=== PATIENT | female | born 1945 | race Caucasian/White ===

== ENCOUNTER → 2020-05-18 10:51 | Outpatient (BNVA) | payer MEDICARE, SELFPAY | PROVIDERS: PCP Internal Medicine; Referring Provider Internal Medicine; Visit Provider Nurse Practitioner Family | DX: I47.1 Supraventricular tachycardia (principal); I10 Essential (primary) hypertension; Z87.891 Personal history of nicotine dependence; Z91.09 Other allergy status, other than to drugs and biological substances; Z79.899 Other long term (current) drug therapy | CPT/HCPCS: 99212 ==

== ENCOUNTER → 2020-11-04 10:48 | Outpatient (BNVA) | payer MEDICARE, SELFPAY | PROVIDERS: PCP Internal Medicine; Visit Provider Nurse Practitioner Family | DX: I47.1 Supraventricular tachycardia (principal); I10 Essential (primary) hypertension; R94.31 Abnormal electrocardiogram [ECG] [EKG] | CPT/HCPCS: 93005; 99212 ==

== ENCOUNTER 2021-02-10 12:45 | Outpatient (REF) | payer MEDICARE, SELFPAY ==
--- NOTE | ~2021-02-10 | XR_ITS ---
EXAMINATION: KNEE X-RAY CLINICAL INFORMATION: Arthritis COMPARISON: Previous x-ray March 2015 TECHNIQUE: 4 views each knee FINDINGS: Left: Bone alignment is normal. No fracture or dislocation is seen. There is arthritis at the medial femoral tibial and patellofemoral joints with joint space narrowing and osteophyte formation. There is no joint effusion. Right: Bone alignment is normal. No fracture or dislocation is seen. There is arthritis at the medial femoral tibial patellofemoral joints with joint space narrowing and osteophyte formation. There is no joint effusion. XR/XR knee LT 4V IMPRESSION: Bilateral arthritis, right greater than left.
--- NOTE | ~2021-02-10 | XR_ITS ---
EXAMINATION: KNEE X-RAY CLINICAL INFORMATION: Arthritis COMPARISON: Previous x-ray March 2015 TECHNIQUE: 4 views each knee FINDINGS: Left: Bone alignment is normal. No fracture or dislocation is seen. There is arthritis at the medial femoral tibial and patellofemoral joints with joint space narrowing and osteophyte formation. There is no joint effusion. Right: Bone alignment is normal. No fracture or dislocation is seen. There is arthritis at the medial femoral tibial patellofemoral joints with joint space narrowing and osteophyte formation. There is no joint effusion. XR/XR knee RT 4V IMPRESSION: Bilateral arthritis, right greater than left.
[2021-02-10 13:38] LABS: Estimated Average Glucose 117 mg/dL; Hemoglobin A1C 149.8802 umol/L; Hemoglobin A1c % 5.7 %
[2021-02-10 14:28] LABS: Anion Gap 14 (12-20); Blood Urea Nitrogen 10 mg/dL (9-16); Calcium 9.4 mg/dL (8.4-10.2); Carbon Dioxide 28 mmol/L (22-29); Chloride 104 mmol/L (96-108); Cholesterol 149 mg/dL; Estimated Glomerular Filt Rate > 60; Glucose Random 120 mg/dL (60-115); HDL Cholesterol 47 mg/dL; LDL Cholesterol Calculated 75 mg/dl; Potassium 4.3 mmol/L (3.3-5.1); Sodium 142 mmol/L (135-145); Triglycerides 138 mg/dL
[2021-02-10 14:36] LABS: Creatinine Urine 229.23 mg/dL; Microalbum/Creatinine Ratio Ur 14.3 ug/mg cr
[2021-02-10 14:52] LABS: Vitamin D 25-OH Total 41.8 ng/mL (>30)
== END 2021-02-10 12:46 | disposition home or self-care (01) ==
LOC: HO.XRAY 12:45
PROVIDERS: PCP Internal Medicine; Visit Provider Internal Medicine
DX: M17.0 Bilateral primary osteoarthritis of knee (principal)
CPT/HCPCS: 36415; 73564; 80048; 80061; 82043; 82306; 83036

== ENCOUNTER 2021-12-26 09:15 | Outpatient (REF) | payer OTHER, SELFPAY ==
[2021-12-26 10:15] LABS: Estimated Average Glucose 111 mg/dL; Hemoglobin A1c % 5.5 %
[2021-12-26 10:49] LABS: Cholesterol 146 mg/dL; HDL Cholesterol 44 mg/dL; LDL Cholesterol Calculated 72 mg/dl; Triglycerides 153 mg/dL
== END 2021-12-26 09:16 | disposition home or self-care (01) ==
LOC: HO.LAB 09:15
PROVIDERS: PCP Internal Medicine; Visit Provider Nurse Practitioner Family
DX: E11.9 Type 2 diabetes mellitus without complications (principal); E78.49 Other hyperlipidemia
CPT/HCPCS: 36415; 80061; 83036

== ENCOUNTER 2022-03-30 13:35 | Outpatient (REF) | payer OTHER, SELFPAY ==
--- NOTE | ~2022-03-30 | MM_ITS ---
EXAMINATION: MM SCREENING DIGITAL BREAST TOMOSYNTHESIS, BILATERAL CLINICAL INFORMATION: Screening. Asymptomatic. The lifetime risk of breast cancer based on the Tyrer-Cuzick Model is 2%. COMPARISON: Mammography: 11/27/2018, 10/26/2017, 06/07/2016, 05/25/2016; targeted left breast ultrasound 05/18/2016. TECHNIQUE: Digital breast tomosynthesis is performed in both the craniocaudal and mediolateral oblique views along with computer-aided detection (CAD). Synthesized 2D images are generated from the tomosynthesis. FINDINGS: There are scattered areas of fibroglandular density (ACR BI-RADS breast composition Category b). There is chronic bilateral nipple retraction similar to prior studies. The parenchymal pattern is similar to prior exam. There is no interval significant mass or architectural abnormality or developing density. Small cyst again noted posterior outer left breast. There are scattered bilateral benign round and rim and some vascular calcifications. The axilla are unremarkable. MM/MM tomosynthesis screening BI IMPRESSION: No significant changes from prior exams. ASSESSMENT: BI-RADS 2: Benign RECOMMENDATION: Routine annual mammography screening. This patient's information was entered into a reminder system with a target due date for their next mammogram.
== END 2022-03-30 13:36 | disposition home or self-care (01) ==
LOC: HO.MAMMO 13:35
PROVIDERS: PCP Internal Medicine; Visit Provider Internal Medicine
DX: Z12.31 Encounter for screening mammogram for malignant neoplasm of breast (principal)
CPT/HCPCS: 77063; 77067

== ENCOUNTER 2022-08-23 09:50 | Outpatient (REF) | payer OTHER, SELFPAY ==
--- NOTE | ~2022-08-23 | XR_ITS ---
EXAMINATION: XR ANKLE, RIGHT XR FOOT, RIGHT CLINICAL INFORMATION: Swelling and pain. COMPARISON: None TECHNIQUE: AP, lateral, and mortise views of the right ankle. AP, lateral, and oblique views of the right foot. FINDINGS: Bony alignment and mineralization are normal. The ankle mortise is intact. No acute fracture, dislocation or right ankle joint effusion is seen. Boehler's angle is normal. There are moderate posterior and large plantar calcaneal spurs. There is degenerative change of the dorsal midfoot. There is a moderate bunion of the first metatarsal head. There is mild osteoarthritic change of the first metatarsophalangeal joint. No focal soft tissue swelling, gas or foreign body is seen. XR/XR ankle LT min 3V IMPRESSION: 1. No fracture, dislocation or right ankle joint effusion is seen. 2. There are calcaneal spurs, as detailed. 3. There is moderate bunion formation. 4. There is mild osteoarthritic change of the right first metatarsophalangeal joint. EXAMINATION: XR ANKLE, LEFT XR FOOT, LEFT CLINICAL INFORMATION: Only). COMPARISON: None TECHNIQUE: AP, lateral, and mortise views of the left ankle. AP, lateral, and oblique views of the left foot. FINDINGS: Bony alignment and mineralization are normal. The ankle mortise is intact. There are small, smoothly marginated accessory ossification centers or chronic avulsion fragments noted adjacent to the bilateral malleoli. No acute fracture, dislocation or joint effusion is seen. Boehler's angle is normal. There are small posterior and moderately large plantar calcaneal spurs. There are degenerative changes of the dorsal midfoot. There is a large bunion noted of the first metatarsal head. There is mild to moderate osteoarthritic change of the first metatarsophalangeal joint. No focal soft tissue swelling, gas or foreign body is seen. IMPRESSION: 1. No fracture, dislocation or left ankle joint effusion is seen. 2. There are calcaneal spurs, as detailed. 3. A large bunion is noted. 4. There is mild to moderate osteoarthritic change of the left first metatarsophalangeal joint.
== END 2022-08-23 09:51 | disposition home or self-care (01) ==
LOC: HO.XRAY 09:50
PROVIDERS: PCP Internal Medicine; Visit Provider Family Medicine
DX: M25.471 Effusion, right ankle (principal); M25.474 Effusion, right foot; M25.475 Effusion, left foot; M25.472 Effusion, left ankle; M25.571 Pain in right ankle and joints of right foot; M25.572 Pain in left ankle and joints of left foot
CPT/HCPCS: 73610; 73630

== ENCOUNTER 2023-03-15 12:25 | Outpatient (REF) | payer OTHER, SELFPAY ==
[2023-03-15 12:49] LABS: MANUAL DIFF FLAG NO
[2023-03-15 13:43] LABS: Basophils Percent Auto 0.3 % (0-2); Eosinophils Absolute Auto 0.2 X10*3/uL (0.0-0.4); Eosinophils Percent Auto 2.9 % (0-4); Hematocrit 41.8 % (37.0-47.0); Hemoglobin 14.4 g/dl (12.0-16.0); Imm Gran Abs Auto 0.01 X10*3/uL (0.00-0.03); Imm Gran Pct Auto 0.2 % (0.0-0.4); Lymphocytes Absolute Auto 2.3 X10*3/uL (1.2-4.9); Lymphocytes Percent Auto 39.4 % (20-40); Mean Corpuscular HGB Conc 34.4 g/dl (31.0-35.0); Mean Corpuscular Volume 92.9 fL (80.0-98.0); Mean Platelet Volume 11.6 fL (9.4-12.3); Monocytes Absolute Auto 0.5 X10*3/uL (0.1-1.2); Monocytes Percent Auto 8.5 % (2-11); Neutrophils Absolute Auto 2.8 x10*3/uL (2.0-8.3); Neutrophils Percent Auto 48.7 % (45-73); Platelet Count 226 X10*3/uL (160-400); Red Cell Distribution Width 12.4 % (11.0-16.0); White Blood Count 5.8 X10*3/uL (4.8-10.8)
[2023-03-15 14:19] LABS: Alanine Aminotransferase 16 U/L (0-31); Albumin Level 4.1 g/dL (3.5-5.0); Alkaline Phosphatase 105 U/L (39-117); Anion Gap 11 (12-20); Aspartate Amino Transferase 16 U/L (5-31); Bilirubin Direct 0.3 mg/dL (0.0-0.5); Bilirubin Total 0.9 mg/dL (0.0-1.0); Blood Urea Nitrogen 10 mg/dL (9-16); Calcium 9.2 mg/dL (8.4-10.2); Carbon Dioxide 28 mmol/L (22-29); Chloride 105 mmol/L (96-108); Cholesterol 150 mg/dL (<200); Estimated Glomerular Filt Rate > 60; Glucose Random 128 mg/dL (60-115); HDL Cholesterol 48 mg/dL (>40); LDL Cholesterol Calculated 74 mg/dL (<100); Potassium 4.1 mmol/L (3.3-5.1); Sodium 140 mmol/L (135-145); Total Protein 7.2 g/dL (6.5-8.0); Triglycerides 141 mg/dL (<150)
[2023-03-15 17:50] LABS: Creatinine Urine 92.78 mg/dL
== END 2023-03-15 12:26 | disposition home or self-care (01) ==
LOC: HO.LAB 12:25
PROVIDERS: PCP Internal Medicine; Visit Provider Internal Medicine
DX: Z00.00 Encounter for general adult medical examination without abnormal findings (principal); E78.5 Hyperlipidemia, unspecified; E11.9 Type 2 diabetes mellitus without complications; I10 Essential (primary) hypertension; M25.471 Effusion, right ankle
CPT/HCPCS: 36415; 80048; 80061; 80076; 82570; 85025

== ENCOUNTER 2023-06-11 13:39 | Emergency (ER) | payer OTHER, SELFPAY ==
--- NOTE | ~2023-06-11 | XR_ITS ---
EXAMINATION: XR CHEST CLINICAL INFORMATION: Cough, fever. COMPARISON: Chest radiograph 06/23/2019. TECHNIQUE: 2 views of the chest were obtained. FINDINGS: Unchanged cardiomediastinal silhouette. No focal airspace opacities, pleural effusion or pneumothorax. No acute osseous findings. Thoracic spondylosis. Visualized upper abdomen is within normal limits. XR/XR chest 2V IMPRESSION: No acute cardiopulmonary findings.
--- NOTE | 2023-06-11 13:41 | ED_ITS ---
HPI - URI/Sore Throat General Chief Complaint: Upper Respiratory Symptoms Stated Complaint: R ear pain/cough Time Seen by Provider: 06/11/23 15:16 Source: patient Mode of arrival: ambulatory Limitations: no limitations History of Present Illness HPI Narrative: 77-year-old female history of SVT, hypertension presenting with sinus congestion, frontal headache, fatigue, malaise, dry cough all going on for the past 2 weeks not improving. Has been taking [id number] medications with little to no relief. Patient denies chest pain, shortness of breath, fevers, chills, nausea, vomiting, abdominal pain, vision changes, weakness. No sick contacts Related Data Home Medications Medication Instructions Recorded Confirmed atorvastatin 40 mg tablet 40 mg PO BEDTIME 05/18/20 11/04/20 cholecalciferol (vitamin D3) 50 50 mcg PO DAILY 05/18/20 11/04/20 mcg (2,000 unit) capsule fluticasone propionate 50 intranasal 05/18/20 11/04/20 mcg/actuation nasal spray,suspension lisinopril 5 mg tablet 5 mg PO DAILY 05/18/20 11/04/20 lorazepam 0.5 mg tablet 0.8385i06? mg PO BEDTIME PRN 05/18/20 11/04/20 omeprazole 20 mg capsule,delayed 20 mg PO DAILY 05/18/20 11/04/20 release Previous Rx's Medication Instructions Recorded amoxicillin 875 mg-potassium 1 tab PO BID 10 days #20 tabs 06/11/23 clavulanate 125 mg tablet prednisone 20 mg tablet 40 mg (2 x 20 mg) PO DAILY 5 days 06/11/23 #10 tabs Allergies Allergy/AdvReac Type Severity Reaction Status Date / Time ENVIROMENTAL Allergy Unknown RHINITIS Uncoded 04/01/20 17:50 environmental Allergy Unknown Uncoded 03/16/15 00:00 Review of Systems Review of Systems: Constitutional : No Weight loss, No Fever, No Chills, + Fatigue, + Malaise ENT/Mouth : + sore throat, No Rhinorrhea, + congestion Eyes: No Eye Pain, No Swelling, No Redness Cardiovascular : No Chest Pain, No SOB, No Dyspnea on Exertion, No Orthopnea, No Edema, No Palpitations Respiratory : + Cough, No Sputum, No Wheezing Gastrointestinal : No Nausea, No Vomiting, No Diarrhea, No Constipation, No abdominal Pain, No Hematochezia, No Melena Genitourinary : No Dysuria, No Urinary Frequency, No Hematuria, Musculoskeletal : No joint pain, No Myalgias, No Joint Swelling Skin : No Skin Lesions, No rash Neuro : No Weakness, No Numbness, No Dizziness, No Headache Psych : No Anxiety/Panic, No Depression All other systems reviewed and are negative Yes all other systems are reviewed and are negative [facility] Past Medical History Attestation statement: The following information was validated with the patient. Source: old records reviewed and nursing notes reviewed Medical History HTN (hypertension) SVT (supraventricular tachycardia) Surgical History H/O prior ablation treatment (~01/2020) History of hysterectomy Hx of tubal ligation Family History Family History Father No problems noted. Mother No problems noted. Physical Exam Vital Signs: Vital Signs: Last Vital Signs Temp 98.6 F 06/11/23 13:43 Pulse 74 06/11/23 13:43 Resp 20 06/11/23 13:43 BP 184/76 H 06/11/23 13:43 Pulse Ox 96 06/11/23 13:43 O2 Del Method Room Air 06/11/23 13:43 BMI result Body Mass Index 31.4 vss Appearance: Alert.? Oriented X3.? No acute distress.? Head: Normocephalic, atraumatic, no step-offs or deformities discomfort with palpation of facial sinuses and pressure to face with forward bending Eyes: Pupils equal, round and reactive to light.? ENT: Pharynx normal.? Neck: Normal inspection.? Neck supple.? CVS: Normal heart rate and rhythm.? Pulses normal.? Respiratory: No respiratory distress.? Breath sounds normal.? Abdomen: Soft and nontender.? Skin: Skin warm and dry.? Normal skin color.? Normal skin turgor.? Extremities: No lower extremity edema.? No calf ttp. 5/5 strength to bilateral upper and lower extremities Neuro: Oriented X 3.? No motor deficit.? No sensory deficit. CN 2-12 intact Course Course Course Narrative: This is a rapid medical exam. Deferred additional HPI, ROS, PE to primary provider 77 yo female with history of asthma, DM, HTN here with fever, cough, right ear pain since last evening. will obtain rsv/flu/covid, strep vss Reevaluation(s) Reevaluation #1: Flu/COVID/RSV and strep negative. Chest x-ray pending. Time: 15:55 Reevaluation #2: Will discharge patient home on Augmentin, prednisone. Educated patient on diagnosis and treatment plan, answered all question, patient verbalizes understanding. At this time patient will be discharged home, advised to return with new or worsening symptoms. Educated on worrisome signs and symptoms and when to return. At this time I feel comfortable discharge home., Medical Decision Making Medical Decision Making [facility] Narrative: [id number] 77-year-old female presents for evaluation of congestion, frontal headache, sinus like symptoms for the past 2 weeks not improving. History of sinus infections Physical exam with pressure to face with forward bending and discomfort with palpation of facial sinuses. Neurological assessment nonfocal. NIH stroke scale 0. This is likely sinusitis versus viral illness. Unlikely meningitis, encephalitis, intracranial hemorrhage, stroke, aseptic meningitis. NO signs pna/pe Plan viral test Differential Diagnosis Differential Diagnoses: The differential diagnosis associated with the presentation includes This is likely sinusitis versus viral illness. Unlikely meningitis, encephalitis, intracranial hemorrhage, stroke, aseptic meningitis.NO signs pna/pe Admission/Observation Consideration of admission/observation: Escalation of care including admission/observation considered unlikely Lab Data [facility] Lab Attestation statement: I reviewed the patient's lab results. Labs: Lab Results 06/11/23 Range/Units 14:10 Influenza Type A (PCR) NEGATIVE (Negative) Influenza Type B (PCR) NEGATIVE (Negative) RSV RNA Qual (PCR) NEGATIVE (Negative) SARS-CoV-2 RNA (RT-PCR) NEGATIVE (Negative) S. pyogenes GrpA DILLON Negative (Negative) Chronic Conditions Patient?s care impacted by: Hypertension Critical Care Time Critical Care Time Critical Care Time: No Discharge Plan Discharge Clinical Impression: Sinusitis Patient Disposition: Home, Self-Care Instructions: Sinusitis (ED) Additional Instructions: Take your medications as prescribed. If you were prescribed antibiotics today, it is important that you take your medication to their entirety, do not skip any doses, do not finish them early. Follow-up with your primary care provider this week. Return to the emergency department with new or worsening symptoms. Such as fevers, chills, chest pain, shortness of breath, nausea, vomiting, dizziness, headache, vision changes, lethargy In case of emergency call 911 Prescriptions: New amoxicillin-pot clavulanate 875-125 mg tablet 1 tab PO BID 10 Days Qty: 20 0RF prednisone 20 mg tablet 40 mg PO DAILY 5 Days Qty: 10 0RF No Action atorvastatin 40 mg tablet 40 mg PO BEDTIME lisinopril 5 mg tablet 5 mg PO DAILY omeprazole 20 mg capsule,delayed release(DR/EC) 20 mg PO DAILY fluticasone propionate 50 mcg/actuation spray,suspension intranasal lorazepam 0.5 mg tablet 0.5735w89? mg PO BEDTIME PRN cholecalciferol (vitamin D3) 50 mcg (2,000 unit) capsule 50 mcg PO DAILY Referrals: Ronda Marquez MD [Primary Care Provider] - 2 days
[2023-06-11 13:43] VITALS: BP 184/76; PULSE 74; RESP 20; TEMP 37; O2SAT 96; BMI 31.4
[2023-06-11 14:30] LABS: IDNOW Serial# 58CA691E; Strep A Nucleic Acid Negative (Negative)
[2023-06-11 14:57] LABS: Influenza A PCR NEGATIVE (Negative); Influenza B PCR NEGATIVE (Negative); Resp Syncy Virus RNA Qual PCR NEGATIVE (Negative); SARS COV2 PCR INHOUSE NEGATIVE (Negative)
[2023-06-11 16:16] VITALS: BP 168/76; PULSE 72; RESP 20; TEMP 36.9; O2SAT 98
--- OUTSIDE RECORDS SUMMARY | 2023-06-11 16:54 | XMS_ITS | Patient Health Record ---
Author Name Unknown [facility] Address [address] [place] [address] Care Team Providers Care Software Installer Name Role Phone Ronda Marquez Primary Care Provider Roya marinoilaAddison Paz Unavailable [phone] ALLERGIES Allergen (clinical drug ingredient) Drug/Non Drug Allergy documented on EMR Reaction Allergy Type Onset Date Status ibuprofen Advil Unknown Drug Allergy Active aspirin Aspirin Unknown Drug Allergy Active REASON FOR REFERRAL No Information MEDICATIONS Medication SIG (Take, Route, Frequency, Duration) Notes Start Date End Date Status amLODIPine Besylate 10 MG Oral for 30 Days Active Lisinopril 20 MG TAKE 1 TABLET BY ZEE TH EVERY MORNING Oral for 90 Days Active Omeprazole 20 MG Oral for 90 Days Active Custom Orthotics as directed 05/01/2023 Active Montelukast Sodium 10 MG Oral for 90 Days Active Cetirizine HCl 04/11/2023 Acti ve Celecoxib 200 MG TAKE 1 CAPSULE BY MO UTH DAILY IN THE MORNING Oral for 30 Days Active Atorvastatin Calcium 40 MG Oral for 90 Days Active SOCIAL HISTORY Tobacco Use: Social History Observation Description Date Details (start date - stop date) Former Smoker NA - NA Sex Assigned At : Social History Observation Description Sex Assigned At Unknown Tobacco Use/Smoking Question Answer Notes Are you a: former smoker Additional Findings: Tobacco Non-User Current no n-smoker Alcohol Screen Question Answer Notes Did you have a drink containing alcohol in the p ast year? Yes Points 0 Interpretation Negative Tobacco use other than smoking: Question Answer Notes Are you an other tobacco user? No VITAL SIGNS Height 5 ft 1 in in 06/01/2023 Weight 176 lbs 06/01/2023 BMI 33.25 kg/m2 06/01/2023 Encounters Encounter Location Date Provider Diagnosis [address] [id number] 04/11/2023 Addison Sherley [address] [address] 04/13/2023 Addison Sherley [address] [address] 05/01/2023 Addison Sherley Pain in left foot M79.672 ; Hypertrophy of bone, left ankle and foot M89.372 ; Flat foot [pes planus] (acquired), left foot M21.42 ; Posterior tibial tendinitis of left lower extremity M76.822 and Acquired pes planus of right foot M21.[address] [address] 05/01/2023 Addison Sherley [address] [address] 06/01/2023 Addison Lepe Posterior tibial tendinitis of left lower extremity M76.822 ASSESSMENTS Encounter Date Diagnosis Assessment Notes Treatment Notes Treatment Clinical Notes 05/01/2023 Pain in left foot (ICD-10 - M79.672) 05/01/2023 Hypertrophy of bone, left ankle and foot (ICD-10 - M89.372) 06/01/2023 Posterior tibial tendinitis of left lower extremity (ICD-10 - M76.822) 05/01/2023 Flat foot [pes planus] (acquired), left foot (ICD-10 - M21.42) 05/01/2023 Posterior tibial tendinitis of left lower extremity (ICD-10 - M76.822) 05/01/2023 Acquired pes planus of right foot (ICD-10 - M21.41) PLAN OF TREATMENT Pending Test Test Name Order Date X ray : Foot, left 3V 05/01/2023 Next Appt Details Provider Name:Addison Lepe , 08/07/2023 10:30:00 AM, [address] [place] [address], [id number], Insurance Providers Payer Name Payer Address Payer Phone Subscriber Number Group Number Insured Name Patient Relationship to Insured Coverage Start Date Coverage End Date [facility] [employer] Claims [address] [place] [address] [phone] [id number] Sandra Manning Self - patient is the insured MEDICAL (GENERAL) HISTORY Medical History History ICD Code CAD Reflux Heart disease/HTN Surgical History Surgery Date(Month/Year) mattress surgery 1993 ovaries surgery 1993
== END 2023-06-11 17:01 | disposition home or self-care (01) ==
PROVIDERS: Nurse Practitioner Family; Emergency Provider Emergency Medicine; PCP Internal Medicine
DX: J32.9 Chronic sinusitis, unspecified (principal); Z20.828 Contact with and (suspected) exposure to other viral communicable diseases; Z20.822 Contact with and (suspected) exposure to COVID-19; E11.9 Type 2 diabetes mellitus without complications; I10 Essential (primary) hypertension; Z79.02 Long term (current) use of antithrombotics/antiplatelets; Z79.899 Other long term (current) drug therapy
CPT/HCPCS: 0241U; 71046; 87651; 99282; 99283

== ENCOUNTER 2024-03-05 14:05 | Outpatient (REF) | payer OTHER, SELFPAY | END 2024-03-05 14:06 | disposition home or self-care (01) | LOC: HO.LNP 14:05 | PROVIDERS: PCP Internal Medicine; Visit Provider Nurse Practitioner Family | DX: M25.551 Pain in right hip (principal); N39.0 Urinary tract infection, site not specified; R31.29 Other microscopic hematuria; R30.0 Dysuria; R82.90 Unspecified abnormal findings in urine; R35.0 Frequency of micturition | CPT/HCPCS: 51798; 81003; 87086; 87088; 87186; 99202 ==

== ENCOUNTER 2024-03-05 14:05 | Outpatient (AMB) | payer OTHER, SELFPAY ==
--- NOTE | 2024-03-05 14:16 | MHC.OFFVIS ---
Intake Visit Reasons: urinary incontinence Intake Note: New Patient presents for initial visit for urinary incontinence Urology Medications: none Blood Thinner: none PVR: 64ml's Typesetting Machine Tender Required: Yes Accompanied by: Self / Same As Patient Allergies ENVIROMENTAL Allergy (Unknown, Uncoded 03/05/24 14:56) RHINITIS environmental Allergy (Unknown, Uncoded 03/05/24 14:56) Unknown Medication List - Last Reconciled 03/05/24 by RAN Kemp No Known Home Meds HPI Comments Details: Evelyn is a very pleasant 78-year-old Italian-speaking female patient of Dr. Radha Vallejo. She has a past medical history of SVT and hypertension. She presents to the office today as a new patient for ongoing lower urinary tract symptoms. In discussion with the patient today she reports a longstanding history of bladder issues and has previously had bladder surgery at [facility] however is unsure as to exactly what procedure she had as this was 6 years ago. She reports noting issues with urinary frequency, foul-smelling urine, dysuria, and urinary urgency. In office urinalysis results reviewed with the patient today 1+ leukocytes, positive nitrate, 2+ microscopic hematuria. When asked she denies any previous history of smoking and or known workplace chemical exposure. Discussed attempting to obtain previous urology records for continuity of care. Discussed at length potential causes for lower urinary tract symptoms patient is experiencing. She otherwise denies flank pain, fever, and or chills. Discussed obtaining retroperitoneal ultrasound for further assessment evaluation. PVR 64 mL. She otherwise offers no other issues or concerns at this time. [facility] Medical History SVT (supraventricular tachycardia) HTN (hypertension) Surgical History H/O prior ablation treatment (~01/2020) History of hysterectomy Hx of tubal ligation Family History Father No problems noted. Mother No problems noted. Review of Systems Const All systems reviewed & are unremarkable except as noted in HPI and below Physical Exam Const General: cooperative, healthy appearing, comfortable, no acute distress, well developed, alert and awake Orientation/consciousness: patient oriented x3 Limitations: no limitations HEENT Head: Yes normal to inspection, Yes normocephalic and Yes atraumatic Ears: hearing grossly normal bilaterally Eyes General: appearance normal, both eyes and all related structures Neck Neck: Yes normal visual inspection and Yes trachea midline Chest Chest palpation & inspection: normal inspection of the chest Resp Effort & Inspection: normal respiratory effort and able to speak in complete sentences Cardio Rate: regular rate GI Inspection: Yes normal to inspection General: Yes no CVA tenderness Back/Spine/Pelvis Back: no CVA tenderness Skin General skin exam: no rashes or lesions noted Neuro General: patient oriented x3 Extrem General: Yes normal to inspection Psych Appearance: grossly normal and well kempt Mental Status: mental status grossly normal Speech and movement: Normal speech and movement present and Clear speech present Affect: normal affect Attitude: cooperative Thought process: Normal thought process present Thought content: Normal thought content present Insight: Fair insight present (Psych) Judgement: Fair judgement present (Psych) Office Procedures Post Void Residual Post Residual Void Post Void Residual (PVR): 64 [id number] Void Residual by ultrasound Results AMB Urinalysis, Automated UA Leukoctes 15 Galina/uL Last Edit by SynapticMash on 03/05/24 14:33 UA Nitrite Positive Last Edit by SynapticMash on 03/05/24 14:33 UA Urobilinogen 0.2 mg/dL Last Edit by SynapticMash on 03/05/24 14:33 UA Protein 15 mg/dL Last Edit by SynapticMash on 03/05/24 14:33 UA pH 6.0 Last Edit by SynapticMash on 03/05/24 14:33 UA Blood 80 Darron/uL Last Edit by SynapticMash on 03/05/24 14:33 UA Specific Crockett 1.010 Last Edit by SynapticMash on 03/05/24 14:33 UA Ketone Negative Last Edit by SynapticMash on 03/05/24 14:33 UA Bilirubin 0 mg/dL Last Edit by SynapticMash on 03/05/24 14:33 UA Glucose 0 mg/dL Last Edit by SynapticMash on 03/05/24 14:33 Results Reviewed Results Reviewed: Laboratory Last Values Urine pH (Auto) 6.0 03/05/24 14:23 Specific Crockett (Auto) 1.010 03/05/24 14:23 Urine Protein (Auto) 15 mg/dL 03/05/24 14:23 Glucose (UA)(Auto) 0 mg/dL 03/05/24 14:23 Urine Ketones (Auto) Negative 03/05/24 14:23 Urine Blood (Auto) 80 Darron/uL 03/05/24 14:23 Urine Nitrite (Auto) Positive 03/05/24 14:23 Urine Bilirubin (Auto) 0 mg/dL 03/05/24 14:23 Urine Urobilinogen (Auto) 0.2 mg/dL 03/05/24 14:23 Leukocyte Esterase (Auto) 15 Galina/uL 03/05/24 14:23 Assessment & Plan Assessment & Plan (1) Urinary tract infection: Code(s): N39.0 - Urinary tract infection, site not specified Category: Medical (2) Microscopic hematuria: Code(s): R31.29 - Other microscopic hematuria Category: Medical (3) Dysuria: Code(s): R30.0 - Dysuria Category: Medical (4) Foul smelling urine: Code(s): R82.90 - Unspecified abnormal findings in urine Category: Medical (5) Urinary frequency: Code(s): R35.0 - Frequency of micturition Category: Medical Plan In office urinalysis results reviewed with the patient today; as noted above; will send for urine culture. PVR 64 mL Discussed at length potential causes for lower urinary tract symptoms patient was experiencing. Discussed obtaining retroperitoneal ultrasound for further assessment evaluation. Start Macrobid as discussed and prescribed. Will attempt to obtain previous medical records for continuity of care. Discussed possible near future in office cystoscopy and or urodynamics for further assessment evaluation Discussed bladder triggers/irritants. Discussed UTI prevention with D mannose supplement, vitamin-C, increasing fluid intake, behavioral therapy with timed voiding, perineal hygiene and postcoital voiding, and management of constipation with stool softeners and increased fiber intake. Discussed possible near future microgen. Follow-up in 1-3 months with imaging to be completed prior and PVR at next office visit; or sooner with any issues, concerns, and or questions. Orders: Orders AMB Urinalysis Automated Today Z13.9 - Encounter for screening, unspecified Urine Culture Today Z13.9 - Encounter for screening, unspecified US retroperitoneal comp Today N39.0 - Urinary tract infection, site not specified, R30.0 - Dysuria, R31.29 - Other microscopic hematuria, R35.0 - Frequency of micturition, R82.90 - Unspecified abnormal findings in urine AMB Post Void Residual by ultrasound Today Z13.9 - Encounter for screening, unspecified Medications: New nitrofurantoin macrocrystal must administer with a meal/food 100 mg PO BID 20 caps 0RF 10 days N39.0 - Urinary tract infection, site not specified Patient Instructions: The patient had an opportunity to ask questions regarding the treatment plan. All questions were answered. Physical exam, labs, and imaging were discussed and reviewed in detail. As well as risks, benefits, and discussion of treatment choices. No major barriers to understanding were identified. The patient expressed understanding and agreement with the above treatment plan. The patient was made aware they should contact our office by phone for worsening of their current condition, the appearance of new symptoms, or with any questions or concerns. Compliance is encouraged with any medications and follow up testing that is ordered. It is a privilege to be allowed the opportunity to participate in? your urological care.? Again, if you have any questions or concerns If you have any questions or concerns please do not hesitate to contact me. The office is [phone]. This note is constructed using voice recognition software. While every effort has been made to ensure accuracy box nailer errors may have been included. Yours sincerely, RAN Kemp Coding Level of Care Code New Pt Level 4 (83913) Diagnoses Urinary tract infection N39.0 Microscopic hematuria R31.29 Dysuria R30.0 Foul smelling urine R82.90 Urinary frequency R35.0 CPT Codes Post Residual Void - PVR CPT Code: 38235-Ycqv Void Residual by ultrasound ([id number])
== END 2024-03-05 15:36 | disposition home or self-care (01) ==
PROVIDERS: PCP Internal Medicine; Visit Provider Nurse Practitioner Family
DX: N39.0 Urinary tract infection, site not specified (principal); R31.29 Other microscopic hematuria; R30.0 Dysuria; R82.90 Unspecified abnormal findings in urine; R35.0 Frequency of micturition; Z13.9 Encounter for screening, unspecified
CPT/HCPCS: 99204

== ENCOUNTER 2024-03-07 10:43 | Outpatient (REF) | payer OTHER, SELFPAY ==
--- NOTE | ~2024-03-07 | XR_ITS ---
EXAMINATION: XR HIP, RIGHT CLINICAL INFORMATION: Right hip pain COMPARISON: None available. TECHNIQUE: AP radiograph of the pelvis. AP and frog lateral views of the right hip. FINDINGS: Mild bilateral hip osteoarthritis with small marginal osteophytes along the acetabular rim. No fracture. Calcification overlying the greater trochanter could represent calcific tendinitis at the gluteus medius insertion. 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 XR/XR hip RT min 2V IMPRESSION: 1. Mild bilateral hip osteoarthritis. No fracture. 2. 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 Electronically signed by: Vinnie Marks MD 03/13/2024 01:03 PM EDT RP
== END 2024-03-07 10:44 | disposition home or self-care (01) ==
LOC: HO.HOSX 10:43
PROVIDERS: Visit Provider Physician Assistant
DX: M25.551 Pain in right hip (principal); M54.30 Sciatica, unspecified side
CPT/HCPCS: 73502; 99202

== ENCOUNTER 2024-03-07 11:02 | Outpatient (AMB) | payer OTHER, SELFPAY ==
--- NOTE | 2024-03-07 11:20 | A.OFFVIS_ITS ---
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 Patient reports ongoing pain for many years. Hx of injections in her right hip back in [place] which gave her relief. She states her pain is worse when she is getting up from a sitting position and when she is walking. Patient has tried and failed taking NSIADs and Tylenol. She mentions that her pain is near the glutes and radiates up to her back. 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 The patient was seen by Dr. Vallejo on 12/20/23 with a complaint of right hip pain for years of intermittent pain. ? ? While in the office today, the patient reports ongoing pain for many years. She states her pain increases when going from a sitting position and when ambulating . ? ? Patient has a history of injections in the right hip in [place] that gave her relief. ? ? Patient has a significant medical history of diabetes mellitus.? PFSH Medical History SVT (supraventricular tachycardia) HTN (hypertension) Surgical History H/O prior ablation treatment (~01/2020) History of hysterectomy Hx of tubal ligation Family History Father No problems noted. Mother No problems noted. Social History (Updated 03/07/24 @ 11:25 by Phyllis Ward) Alcohol intake: never Patient Tobacco Use Status: Never used Tobacco Current occupational status: disabled Review of Systems Const All systems reviewed & are unremarkable except as noted in HPI and below Physical Exam Vital Signs: BMI result Body Mass Index 28.7 Const General: cooperative and no acute distress Orientation/consciousness: patient oriented x3 Resp Effort & Inspection: normal respiratory effort and able to speak in complete sentences Cardio Peripheral pulses: Peripheral pulses 2+ throughout Skin General skin exam: no rashes or lesions noted Neuro General: patient oriented x3 Extrem Other: Right hip: Normal to inspection. No ecchymosis, erythema, or edema. Full hip ROM in all planes. No tenderness to palpation over the greater trochanteric bursa. 5/5 strength with resisted hip flexion, knee extension, abduction, and abduction. Able to perform straight leg raise. NVI.? Assessment & Plan Assessment & Plan (1) Sciatica: Code(s): M54.30 - Sciatica, unspecified side Category: Medical Plan Ms. Curtis Manning is a 78-year-old female, who is Moldovan speaking, presents in the office today, as a new patient, for an evaluation of right hip pain. The patient was seen by Dr. Vallejo on 12/20/23 with a complaint of right hip pain for years of intermittent pain. ? ? While in the office today, the patient reports ongoing pain for many years. She states her pain increases when going from a sitting position and when ambulating. ? ? Patient has a history of injections in the right hip in [place] that gave her relief. ? ? Patient has a significant medical history of diabetes mellitus.? ? [facility] she has received spinal injections in the past with good relief while she was in [place]. The patient is interested in repeating these injections. Follow-up will be PRN, or sooner if needed. ? ? X-rays of the right hip which were obtained while in the office today and were reviewed by me, Beth Alston PA-C, revealed no acute fracture or dislocation.? Orders: Orders XR hip RT min 2V Today M25.559 - Pain in unspecified hip Referrals Pain Management Referral M54.30 - Sciatica, unspecified side Patient Instructions: Scribed by Gayatri Epps medical device sales consultant, for Beth Alston PA-C on 03/07/2024 at 11:04 am, EST.? Coding Level of Care Code New Pt Level 4 (30121) Diagnoses Sciatica M54.30
[2024-03-07 11:25] VITALS: BMI 28.7
== END 2024-03-07 11:39 | disposition home or self-care (01) ==
PROVIDERS: PCP Internal Medicine; Visit Provider Physician Assistant
DX: M54.31 Sciatica, right side (principal)
CPT/HCPCS: 99203

== ENCOUNTER 2024-03-27 14:24 | Outpatient (AMB) | payer OTHER, SELFPAY ==
--- NOTE | 2024-03-27 14:30 | A.OFFVIS_ITS ---
Vital Signs 03/27/24 14:35 Height 5 ft 3 in Weight 162 lb BMI 28.7 BP 131/76 Blood Pressure Location Lt brachial Position Sitting Pulse 75 Pulse Source Pulse Oximeter Pulse Oximetry (%) 97 Oxygen Delivery Method Room Air Intake Visit Reasons: Sciatica, unspecified side Intake Note: Pain today 03/25 Ski Base Trimmer Required: Yes Ski Base Trimmer Language: Citizen Of [place] Accompanied by: Self / Same As Patient Allergies ENVIROMENTAL Allergy (Unknown, Uncoded 03/05/24 14:56) RHINITIS environmental Allergy (Unknown, Uncoded 03/05/24 14:56) Unknown HPI HPI Sciatica, unspecified side: Details: Patient is a pleasant 78 years old Citizen Of [place]-speaking female with past history of chronic low back pain, right hip pain, polyarthralgia, diabetes, presents today for initial evaluation for low back pain. Denies any recent trauma, injury, or falls. Patient reports she used to receive back injections in [place] over 10 years ago with good relief and is interested in in her general treatments. She completed physical therapy about 4 years ago with minimal improvement. Currently she is unable to pursue physical therapy due to significant pain aggravation with walking, changing positions, prolonged sitting or standing, and most ADLs. She presents with axial low back pain and significant localized tenderness in the projection of bilateral sacroiliac joint injections. Patient reports she received back injections and [place] but was not sure if this was to address SI joint areas. Denies previous spine surgery. She is currently undergoing orthopedic evaluation for right hip pain. Denies any fever or chills, weight loss, weakness, foot drop, bladder or bowel dysfunction or saddle anesthesia. Reports history of uterine incontinence with surgical repair in the past. Location: Bilateral lower back pain, left worse than right Duration: Chronic pain for many years Characteristics of symptom or complaint: Aching, spasming, cramping, tight, sharp, stabbing Aggravating or associated factors: Prolonged sitting or standing, walking, climbing stairs, cold weather, ADLs Relieving factors: Tylenol, Celebrex, Flexeril, heat therapy, topical OTC applications Treatment: PT, back injections in [place], home exercise program [facility] Medical History SVT (supraventricular tachycardia) HTN (hypertension) Surgical History H/O prior ablation treatment (~01/2020) History of hysterectomy Hx of tubal ligation Family History Father No problems noted. Mother No problems noted. Social History Alcohol intake: never Patient Tobacco Use Status: Never used Tobacco Current occupational status: disabled Review of Systems Const All systems reviewed & are unremarkable except as noted in HPI and below Physical Exam Vital Signs: Last Vital Signs Pulse 75 03/27/24 14:35 BP 131/76 03/27/24 14:35 Pulse Ox 97 03/27/24 14:35 Oxygen Delivery Method Room Air 03/27/24 14:35 BMI result Body Mass Index 28.7 General: Appears afebrile. Alert and oriented. Mood and affect appropriate. Follows and participates in conversation appropriately. Respiratory effort is unlabored. No cough. Able to transition from sit to stand unassisted. Ambulates with bilaterally normal heel strike and toe off. General: Yes no CVA tenderness Back/Spine/Pelvis Other: Limited lumbar ROM due to pain. Lumbar extension reproduces moderate pain, flexion causes mild symptoms. Demonstrates 5/5 left and 4/5 right (due to right hip/groin pain) strength of quadriceps bilaterally as well as flexion/d orsiflexion of bilateral feet against resistance. 2+ pedal pulses bilaterally. Seated straight leg rise with dorsiflexion negative bilaterally. Diminished patellar and achilles reflexes bilaterally. Facet loading test positive bilaterally. Rufus sign positive bilatearlly. Mikie?s, SI distraction, Pelvic compression and Stinchfield tests are positive bilaterally. Moderate groin pain with I/E hip rotations on the right, slight on the left. Valsalva maneuver negative. Back: no CVA tenderness Cervical Spine: cervical ROM normal, cervical muscular tenderness and No Cervical spine tenderness Thoracic/Lumbar Spine: thoracic and lumbar spine normal to inspection, No Thoracic/lumbar spine scar(s), Lasegue's sign negative, straight leg raise negative bilaterally, pain with thoraco-lumbar ROM, paraspinal muscle tenderness, thoraco-lumbar ROM limited, No thoracic spinal tenderness and lumbar spinal tenderness (L4-S1) Pelvis: buttock tenderness bilaterally Sacroiliac joints: bilaterally tender to palpation Results Reviewed Results Reviewed: XR HIP, RIGHT 03/07/24 CLINICAL INFORMATION: Right hip pain FINDINGS: Mild bilateral hip osteoarthritis with small marginal osteophytes along the acetabular rim. No fracture. Calcification overlying the greater trochanter could represent calcific tendinitis at the gluteus medius insertion. 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 IMPRESSION: 1. Mild bilateral hip osteoarthritis. No fracture. 2. 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 Assessment & Plan Assessment & Plan (1) Lumbosacral spondylosis: Code(s): M47.817 - Spondylosis without myelopathy or radiculopathy, lumbosacral region Category: Medical (2) Sacroiliac joint pain: Code(s): M53.3 - Sacrococcygeal disorders, not elsewhere classified Category: Medical (3) Sacroiliitis: Code(s): M46.1 - Sacroiliitis, not elsewhere classified Category: Medical (4) Right hip pain: Code(s): M25.551 - Pain in right hip Category: Medical Plan Lumbar spine and SIJ imaging to assess degree of degenerative changes, any subluxation, listhesis, compression fractures or pars defects. Schedule diagnostic bilateral sacroiliac joint injections with local and fluoroscopy. Discussed interventional treatments for a longer term pain relief if positive response to diagnostic SIJ injections, including therapeutic injections, neuromodulation, SI joint fusion or RFA procedures. Expectations, risks and benefits were reviewed. Patient is aware she will be contacted to schedule this procedure. If no pain relief, we will consider diagnostic lumbar medial branch blocks. All questions were answered and the patient is in agreement of plan. Follow-up after injections and sooner as needed. Orders: Orders XR sacroiliac joint min 3V Today M46.1 - Sacroiliitis, not elsewhere classified, M53.3 - Sacrococcygeal disorders, not elsewhere classified XR lumbar spine 4V min Today M47.817 - Spondylosis without myelopathy or radiculopathy, lumbosacral region Coding Level of Care Code New Pt Level 4 (85736) Diagnoses Lumbosacral spondylosis M47.817 Sacroiliac joint pain M53.3 Sacroiliitis M46.1 Right hip pain M25.551
[2024-03-27 14:35] VITALS: BP 131/76; PULSE 75; O2SAT 97; BMI 28.7
== END 2024-03-27 14:53 | disposition home or self-care (01) ==
PROVIDERS: PCP Internal Medicine; Visit Provider Nurse Practitioner Family
DX: M47.817 Spondylosis without myelopathy or radiculopathy, lumbosacral region (principal); M53.3 Sacrococcygeal disorders, not elsewhere classified; M46.1 Sacroiliitis, not elsewhere classified; M25.551 Pain in right hip
CPT/HCPCS: 99204

== ENCOUNTER → 2024-03-27 14:24 | Outpatient (BNVA) | payer OTHER, SELFPAY | PROVIDERS: PCP Internal Medicine; Visit Provider Nurse Practitioner Family | DX: M25.551 Pain in right hip (principal); M46.1 Sacroiliitis, not elsewhere classified; M53.3 Sacrococcygeal disorders, not elsewhere classified; M47.817 Spondylosis without myelopathy or radiculopathy, lumbosacral region | CPT/HCPCS: 99202 ==

== ENCOUNTER 2024-04-21 02:34 | Emergency (ER) | payer OTHER, SELFPAY ==
--- NOTE | ~2024-04-21 | CT_ITS ---
EXAMINATION: CT HEAD WITHOUT CONTRAST CLINICAL INFORMATION: Fall. Injury. COMPARISON: None available. TECHNIQUE: Contiguous axial imaging was performed from the skull base to vertex without intravenous administration of contrast. This CT examination was performed using dose optimization techniques as appropriate, variously including the following: *Automated exposure control *Adjustment of mA and/or kV according to patient size (this includes techniques or standardized protocols for targeted exams where dose is matched to indication/reason for exam; i.e. extremities or head) *Use of iterative reconstruction technique DLP: 1219 mGy-cm FINDINGS: No intracranial hemorrhage, tumors or acute infarcts identified. Mild diffuse symmetric prominence of ventricles and sulci. No focal parenchymal lesions of the brain or abnormal extra-axial fluid collections. Extrarenal soft tissue inflammatory changes centered in the right frontal region. No calvarial fractures identified. No significant opacification of the visualized paranasal sinuses, mastoid air cells and middle ear cavities. CT/CT head/brain wo IV con IMPRESSION: *No acute intracranial abnormalities. *Right frontal extracranial soft tissue inflammatory changes. Electronically signed by: Harpreet Murray MD 04/21/2024 05:31 AM EDT
[2024-04-21 02:36] VITALS: BP 177/76; PULSE 87; RESP 18; TEMP 36.7; O2SAT 98; BMI 27.8
[2024-04-21] MEDS: Acetaminophen 325 MG TABLET 650 MG PO (03:08)
--- NOTE | 2024-04-21 03:09 | PC.NURSE ---
Pt's head dressing was reinforced shortly after leaving triage as the bleeding was oozing beneath the dressing. Wound continues to acitively bleed, reinforced with hamlet bandage to apply adequate pressure. pt medicated for pain she is conversing in full/complete sentences
[2024-04-21 04:00] VITALS: BP 152/84; PULSE 76; RESP 18; O2SAT 94
--- OUTSIDE RECORDS SUMMARY | 2024-04-21 04:46 | XMS_ITS ---
Author Organization [facility] claudine [place] Address [address] [place] [address] Care Team Providers Care Child Care Supervisor Name Role Phone Ronda Marquez Primary Care Provider Roya vailaAddison Paz Unavailable [phone] ALLERGIES Allergen (clinical drug ingredient) Drug/Non Drug Allergy documented on EMR Reaction Allergy Type Onset Date Status ibuprofen Advil Unknown Drug Allergy Active aspirin Aspirin Unknown Drug Allergy Active REASON FOR VISIT Foot pain MEDICATIONS Medication SIG (Take, Route, Frequency, Duration) Notes Start Date End Date Status Celecoxib 200 MG TAKE 1 CAPSULE BY MO UTH DAILY IN THE MORNING Oral for 30 Days Active ASO Ankle/Foot Stablizing AFO As directed Wear Daily for as needed 10/16/2023 Active Custom Orthotics as directed 05/01/2023 Active Atorvastatin Calcium 40 MG Oral for 90 Days Active Montelukast Sodium 10 MG Oral for 90 Days Active Cetirizine HCl 04/11/2023 Acti ve Omeprazole 20 MG Oral for 90 Days Active amLODIPine Besylate 10 MG Oral for 30 Days Active Lisinopril 20 MG TAKE 1 TABLET BY ZEE TH EVERY MORNING Oral for 90 Days Active SOCIAL HISTORY [...] SIGNS Height 5 ft 1 in in 10/16/2023 Weight 176 lbs 10/16/2023 BMI 33.25 kg/m2 10/16/2023 Encounters Encounter Location Date Provider Diagnosis [facility] [place] [address] [place] [address] 10/16/2023 Addison Sherley Pain in left foot M79.672 ; Flat foot [pes planus] (acquired), left foot M21.42 ; Posterior tibial tendinitis of left lower extremity M76.822 and Acquired pes planus of right foot M21.41 ASSESSMENTS Encounter Date Diagnosis Assessment Notes Treatment Notes Treatment Clinical Notes 10/16/2023 Pain in left foot (ICD-10 - M79.672) 10/16/2023 Flat foot [pes planus] (acquired), left foot (ICD-10 - M21.42) 10/16/2023 Posterior tibial tendinitis of left lower extremity (ICD-10 - M76.822) 10/16/2023 Acquired pes planus of right foot (ICD-10 - M21.41) PLAN OF TREATMENT Medication Medication Name Sig Start Date Stop Date Notes ASO Ankle/Foot Stablizing AFO As directe d Wear Daily for as needed 10/16/2023 Next Appt Details Follow Up: prn, Reason: Progress Notes * Examination Category Sub-Category Detail Notes Neurological SENSORY: Neurological exa m reveals intact sensorium, pain sensation normal, vibration sensation intact, pinprick sensation is normal in the lower extremities, Pt denies, anesthesia, burning, paresthesia, tingling, B/L DEEP TENDON REFLEXES: Achilles, 2/4, B/L Dermatologic SKIN FINDINGS: Skin exam reveal s normal texture, elasticity, and turgor. There are no masses. The interspaces are clear Orthopedic FOOT MORPHOLOGY: Pes Planus stru cture , B/L TENDONITIS: Pain on palpation, i nflammation, and fusiform swelling to, Posterior Tibial Tendon, LEFT MUSCLE STRENGTH: 5/5 all groups in a symmetrical fashion , B/L General Examination GENERAL APPEARANCE: Reveals a pleasant, alert, well- nourished, well-developed, well hydrated individual, who demonstrates proper attention to hygiene/body habitus, and is in no acute distress , Pt accompanied by , Daughter , who serves as , Tester Compressed Gases/Ict Business Analyst , additional Historian , and/who is physically present in exam room at time of visit ORIENTED: person, place, and t vicki Vascular DP PULSES(B): 2/4, B/L PT PULSES(B): 2/4, B/L CAPILLARY FILL TIME: immediate, all digi ts, B/L TEMPERTURE GRADIENT(C): warm to cool, pr oximal to distal, B/L TROPHIC CONDITION-TEXTURE/ELASTICITY/TURGOR/HAIR GROWTH(B): normal, B/L EDEMA(C): absent, B/L PIGMENTATION: normal, B/L History and Physical Notes * HPI (History of Present Illness) Category Sub-Category Detail Notes Foot Pain Nature: aching, pulling, tenderness, throbbing, weakness Location: LEFT Duration: 1 year or more Course: unresolved Aggravated: any pressure, standi ng, walking Treatments: rest/alter normal da jose l activity, ice , change in shoes , medication ( Celebrex 200mg, Aspercream) , custom innersoles Physical Examination Category Sub-Category Detail Notes L1902 ASO-AFO Application of ankle foot orthosis, ankle gauntlet, prefabricated, including fitting and adjustment: Small , Left
--- OUTSIDE RECORDS SUMMARY | 2024-04-21 04:46 | XMS_ITS ---
Author Organization [facility] Address [address] [place] [address] Care Team Providers Care Engineering Specialist Name Role Phone Ronda Marquez Primary Care Provider Roya vailable Addison Lepe Unavailable [phone] Encounters Encounter Location Date Provider Diagnosis [facility] [address] [place] [address] 11/27/2023 Addison Lepe PLAN OF TREATMENT No Information
--- OUTSIDE RECORDS SUMMARY | 2024-04-21 04:46 | XMS_ITS | Patient Health Record ---
Author Organization [facility] Address [address] [facility] [place] [address] Care Team Providers Care Guest Relations Agent Name Role Phone Ronda Marquez Primary Care Provider Roya Addison Peterson Unavailable [phone] ALLERGIES Allergen (clinical drug ingredient) Drug/Non Drug Allergy documented on EMR Reaction Allergy Type Onset Date Status ibuprofen Advil Unknown Drug Allergy Active aspirin Aspirin Unknown Drug Allergy Active REASON FOR REFERRAL No Information MEDICATIONS Medication SIG (Take, Route, Frequency, Duration) Notes Start Date End Date Status Atorvastatin Calcium 40 MG Oral for 90 Days Active Montelukast Sodium 10 MG Oral for 90 Days Active AFO-Hinged as directed Wear Yamila ly for as needed 01/01/2024 Active Custom Orthotics as directed 05/01/2023 Active Celecoxib 200 MG TAKE 1 CAPSULE BY MO UTH DAILY IN THE MORNING Oral for 30 Days Active amLODIPine Besylate 10 MG Oral for 30 Days Active Lisinopril 20 MG TAKE 1 TABLET BY ZEE TH EVERY MORNING Oral for 90 Days Active Cetirizine HCl 04/11/2023 Acti ve Omeprazole 20 MG Oral for 90 Days Active ASO Ankle/Foot Stablizing AFO As directed Wear Daily for as needed 10/16/2023 Active SOCIAL HISTORY Tobacco Use: Social History [...] SIGNS Height 5 ft 1 in in 01/01/2024 Weight 176 lbs 01/01/2024 BMI 33.25 kg/m2 01/01/2024 Encounters Encounter Location Date Provider Diagnosis [address] [address] 05/01/2023 Addison Sherley Pain in left foot M79.672 ; Hypertrophy of bone, left ankle and foot M89.372 ; Flat foot [pes planus] (acquired), left foot M21.42 ; Posterior tibial tendinitis of left lower extremity M76.822 and Acquired pes planus of right foot M21.[address] [address] 05/01/2023 Addison Sherley [address] [address] 06/01/2023 Addison Sherley Posterior tibial tendinitis of left lower extremity M76.[address] [address] 08/03/2023 Addison Sherley [address] [address] 08/07/2023 Addison Sherley [address] [address] 10/16/2023 Addison Sherley Pain in left foot M79.672 ; Flat foot [pes planus] (acquired), left foot M21.42 ; Posterior tibial tendinitis of left lower extremity M76.822 and Acquired pes planus of right foot M21.[address] [address] 11/27/2023 Addison Sherley [address] [address] 01/01/2024 Addison Sherley Pain in left foot M79.672 ; Flat foot [pes planus] (acquired), left foot M21.42 ; Posterior tibial tendinitis of left lower extremity M76.822 ; Acquired pes planus of right foot M21.41 and Difficulty walking R26.2 ASSESSMENTS Encounter Date Diagnosis Assessment Notes Treatment Notes Treatment Clinical Notes 05/01/2023 Pain in left foot (ICD-10 - M79.672) 05/01/2023 Hypertrophy of bone, left ankle and foot (ICD-10 - M89.372) 06/01/2023 Posterior tibial tendinitis of left lower extremity (ICD-10 - M76.822) 10/16/2023 Pain in left foot (ICD-10 - M79.672) 10/16/2023 Flat foot [pes planus] (acquired), left foot (ICD-10 - M21.42) 01/01/2024 Pain in left foot (ICD-10 - M79.672) 01/01/2024 Flat foot [pes planus] (acquired), left foot (ICD-10 - M21.42) 01/01/2024 Posterior tibial tendinitis of left lower extremity (ICD-10 - M76.822) 10/16/2023 Posterior tibial tendinitis of left lower extremity (ICD-10 - M76.822) 05/01/2023 Flat foot [pes planus] (acquired), left foot (ICD-10 - M21.42) 05/01/2023 Posterior tibial tendinitis of left lower extremity (ICD-10 - M76.822) 10/16/2023 Acquired pes planus of right foot (ICD-10 - M21.41) 01/01/2024 Acquired pes planus of right foot (ICD-10 - M21.41) 01/01/2024 Difficulty walking (ICD-10 - R26.2) 05/01/2023 Acquired pes planus of right foot (ICD-10 - M21.41) PLAN OF TREATMENT Pending Test Test Name Order Date X ray : Foot, left 3V 05/01/2023 Insurance Providers Payer Name Payer Address Payer Phone Subscriber Number Group Number Insured Name Patient Relationship to Insured Coverage Start Date Coverage End Date [facility] [employer] Claims [address] [place] [address] [phone] [id number] Sandra Manning Self - patient is the insured MEDICAL (GENERAL) HISTORY Medical History History ICD Code CAD Reflux Heart disease/HTN Surgical History Surgery Date(Month/Year) mattress surgery 1993 ovaries surgery 1993
--- OUTSIDE RECORDS SUMMARY | 2024-04-21 04:46 | XMS_ITS ---
Author Organization [facility] claudine [place] Address [address] [facility] [place] [address] Care Team Providers Care Delivery Rn Name Role Phone Ronda Marquez Primary Care Provider Roya vailaAddison Paz Unavailable [phone] ALLERGIES Allergen (clinical drug ingredient) Drug/Non Drug Allergy documented on EMR Reaction Allergy Type Onset Date Status Advil Unknown Drug Allergy Active aspirin Aspirin Unknown Drug Allergy Active REASON FOR VISIT Foot pain MEDICATIONS Medication SIG (Take, Route, Frequency, Duration) Notes Start Date End Date Status Atorvastatin Calcium 40 MG Oral for 90 Days Active AFO-Hinged as directed Wear Yamila ly for as needed 01/01/2024 Active Custom Orthotics as directed 05/01/2023 Active Celecoxib 200 MG TAKE 1 CAPSULE BY MO UTH DAILY IN THE MORNING Oral for 30 Days Active ASO Ankle/Foot Stablizing AFO As directed Wear Daily for as needed 10/16/2023 Active Montelukast Sodium 10 MG Oral for 90 Days Active amLODIPine Besylate 10 MG Oral for 30 Days Active Lisinopril 20 MG TAKE 1 TABLET BY ZEE TH EVERY MORNING Oral for 90 Days Active Cetirizine HCl 04/11/2023 Acti ve Omeprazole 20 MG Oral for 90 Days Active SOCIAL [...] 01/01/2024 Encounters Encounter Location Date Provider Diagnosis [facility] [address] [place] [address] 01/01/2024 Addison Sherley Pain in left foot M79.672 ; Flat foot [pes planus] (acquired), left foot M21.42 ; Posterior tibial tendinitis of left lower extremity M76.822 ; Acquired pes planus of right foot M21.41 and Difficulty walking R26.2 ASSESSMENTS Encounter Date Diagnosis Assessment Notes Treatment Notes Treatment Clinical Notes 01/01/2024 Pain in left foot (ICD-10 - M79.672) 01/01/2024 Flat foot [pes planus] (acquired), left foot (ICD-10 - M21.42) 01/01/2024 Posterior tibial tendinitis of left lower extremity (ICD-10 - M76.822) 01/01/2024 Acquired pes planus of right foot (ICD-10 - M21.41) 01/01/2024 Difficulty walking (ICD-10 - R26.2) PLAN OF TREATMENT Medication Medication Name Sig Start Date Stop Date Notes AFO-Hinged as directed Wear Daily for as needed 01/01/2024 Next Appt Details Follow Up: prn, Reason: [...] Pes Planus stru cture , B/L TENDONITIS: CONT, Pain on palpat ion, inflammation, and fusiform swelling to, Posterior Tibial Tendon, LEFT MUSCLE STRENGTH: 5/5 all groups in a symmetrical fashion , B/L General Examination GENERAL APPEARANCE: Reveals a pleasant, alert, well- nourished, well-developed, well hydrated individual, who demonstrates proper attention to hygiene/body habitus, and is in no acute distress , Pt accompanied by , Daughter , and Grand-son, who serves as , K9 Handler/Tube Heater , additional Historian , and/who are physically present in exam room at time [...] ( Celebrex 200mg, Aspercream) , custom innersoles , bracing, straps, wraps which were initially successful in relieving discomfort, but were difficult to apply/remove regularly Physical Examination Category Sub-Category Detail Notes L1902 ASO-AFO Application of ankle foot orthosis, ankle gauntlet, prefabricated, including fitting and adjustment: Small , Left
--- NOTE | 2024-04-21 07:06 | ED_ITS ---
HPI - Head Injury General Chief complaint: Wound/Laceration Stated complaint: R Eye injury bleeding Time Seen by Provider: 04/21/24 07:03 Source: patient, EMS, old records reviewed and neuropsychology director Mode of arrival: EMS Limitations: no limitations History of Present Illness ED Provider: ESTELLA HUGHES Narrative: 78 yo female with PMH of HTN, HLD, GERD, SVT not on blood thinners here with c/o trip and fall last night hitting face on floor with glasses - no R eye vision loss or pain, has lacerations on R eyebrow x 2. She did not have LOC. She has no neck pain has been waiting in ED for 4 hours already and denies any other injuries is eager to go home. States her neck and extremities do not hurt. She has no rib or back pain. She was helped right up by family. She has been up to the bathroom already per family in the ED. No change in vision. MD Complaint: head injury and fall Onset (ago): hour(s) (1) Mechanism of Injury: fall Place: home Loss of Consciousness: no Location of injury: frontal Severity: mild Quality: dull and aching Radiation: none Other Injuries: laceration Associated symptoms: denies other symptoms Related Data Home Medications ?Medication ?Instructions ?Recorded ?Confirmed albuterol sulfate 90 mcg/actuation inhalation 03/07/24 aerosol inhaler (Ventolin HFA) amlodipine 5 mg tablet 5 mg PO DAILY 03/07/24 atorvastatin 40 mg tablet 40 mg PO DAILY 03/07/24 azithromycin 250 mg tablet 250 mg PO DIRECTED 03/07/24 celecoxib 200 mg capsule 200 mg PO DAILY 03/07/24 cetirizine 10 mg tablet 10 mg PO DAILY 03/07/24 cyclobenzaprine 10 mg tablet 10 mg PO TID 03/07/24 fluticasone propionate 50 spray intranasal 03/07/24 mcg/actuation nasal spray,suspension lisinopril 20 mg tablet 20 mg PO DAILY 03/07/24 montelukast 10 mg tablet 10 mg PO DAILY 03/07/24 omeprazole 20 mg capsule,delayed 20 mg PO DAILY 03/07/24 release oxybutynin chloride 10 mg 10 mg PO DAILY 03/07/24 tablet,extended release 24 hr pseudoephedrine HCl 30 mg tablet 30 mg PO Q4-6H 03/07/24 (Sudogest) Allergies Allergy/AdvReac Type Severity Reaction Status Date / Time ENVIROMENTAL Allergy Unknown RHINITIS Uncoded 04/21/24 02:37 environmental Allergy Unknown Unknown Uncoded 04/21/24 02:37 Review of Systems Review of Systems: Constitutional : No Fever, No Chills, No Fatigue ENT/Mouth : No sore throat, No Rhinorrhea Eyes: No Eye Pain, No Swelling, No Redness Cardiovascular : No Chest Pain, No SOB, No Dyspnea on Exertion Respiratory : No Cough, No Sputum Gastrointestinal : No Nausea, No Vomiting, No Diarrhea, No abdominal Pain Genitourinary : No Dysuria, No Urinary Frequency, No Hematuria, Musculoskeletal : No joint pain, No Myalgias, No Joint Swelling Skin : No Skin Lesions, No rash, pos skin laceration Neuro : No Weakness, No Numbness, No Dizziness, positive Headache All other systems reviewed and are negative [facility] Past Medical History Attestation statement: The following information was validated with the patient. Source: old records reviewed Medical History SVT (supraventricular tachycardia) HTN (hypertension) Surgical History H/O prior ablation treatment (~01/2020) History of hysterectomy Hx of tubal ligation Family History Family History Father No problems noted. Mother No problems noted. Social History Social History Alcohol intake: never Patient Tobacco Use Status: Never used Tobacco Advance Directives: No Advance Directives Information Provided: Yes Current occupational status: disabled Physical Exam Vital Signs: Vital Signs: Last Vital Signs Temp 98.1 F 04/21/24 02:36 Pulse 76 04/21/24 04:00 Resp 18 04/21/24 04:00 BP 152/84 H 04/21/24 04:00 Pulse Ox 94 04/21/24 04:00 O2 Del Method Room Air 04/21/24 04:00 BMI result Body Mass Index 27.8 Appearance: Alert. Oriented X3. No acute distress. Eyes: Pupils equal, round and reactive to light. EOMi no change in vision ENT: Pharynx normal. contusion and abrasion R zygoma no laceration able to suture, R eyebrow 2 laceration upper 3cm, lower 2.5cm superficial bleeding controlled Neck: Normal inspection. Neck supple. no midline ttp CVS: Normal heart rate and rhythm. Pulses normal. Respiratory: No respiratory distress. Breath sounds normal. Abdomen: Soft and nontender. Skin: Skin warm and dry. Normal skin color. Normal skin turgor. Extremities: No lower extremity edema. No calf ttp Neuro: Oriented X 3. No motor deficit. No sensory deficit. Medications Administered Discontinued Medications Generic Name Dose Route Start Last Admin Trade Name Stuart PRN Reason Stop Dose Admin Acetaminophen 650 mg 04/21/24 03:06 04/21/24 03:08 Acetaminophen 325 Mg Tablet PO 04/21/24 03:07 650 mg ONCE ONE Administration Medical Decision Making Medical Decision Making [facility] Narrative: 78 yo female with PMH of HTN, HLD, GERD, SVT not on blood thinners here with c/o R sided facial lacerations and head injury no LOC not on thinners post mechanical fall - at this time no eye injury no visual changes - will obtain CT head which was done and patient is declining neck pain has waited for 4 hours they are eager to go home. No midline ttp normal ROM no radicular symptoms will decline CT cspine. Will repair facial trauma. Tdap UTD. Differential Diagnosis Differential Diagnoses: The differential diagnosis associated with the presentation includes head injury, soft tissue injury, laceration Admission/Observation Consideration of admission/observation: Escalation of care including admission/observation considered GCS 15 declines further imaging ready to go home, no vomiting, lacerations repaired given precautions family and patient eager to go home Independent Interpretation I performed an independent interpretation of an: CT Scan (no ICH) Radiology Impression Discussion of test interpretation with radiology: I have reviewed the radiologist's reading. Independent Historian Clinical information obtained from an independent historian. History obtained from or confirmed by: Other (family) External Record Review External record reviewed: Inpatient record and Outpatient record Procedures Laceration Laceration 1: Site: face Side (If applicable): right Size (cm): 3 Description: linear and stellate Depth: simple, single layer Local Anesthetic: lidocaine 1% Amount of anesthesia used (mL): 2 Pre-repair: wound explored, irrigated extensively and deep structures intact Skin layer closed with: nylon Size (cm): 6-0 Number of sutures: 4 Technique: simple, interrupted Laceration 2: Site: face Side (If applicable): right Size (cm): 2.5 Description: linear and irregular Depth: simple, single layer Local Anesthetic: lidocaine 1% Amount of anesthesia used (mL): 2 Pre-repair: wound explored, irrigated extensively and deep structures intact Skin layer closed with: nylon Size (cm): 6-0 Number of sutures: 3 Technique: simple, interrupted Discharge Plan Discharge Clinical Impression: Head injury Qualifiers: Encounter type: initial encounter Qualified Code(s): S09.90XA - Unspecified injury of head, initial encounter Face lacerations Qualifiers: Encounter type: initial encounter Qualified Code(s): S01.81XA - Laceration without foreign body of other part of head, initial encounter Patient Disposition: Home, Self-Care Instructions: Head Injury (ED), Laceration (ED) Additional Instructions: okay to shower. monitor for redness, swelling yellow drainage, fevers head injury - return for severe headaches, confusion, vomiting more than two times, or any other concerns stitches out here in 7 days or at your doctors total of 7 stitches placed Prescriptions: No Action celecoxib 200 mg capsule 200 mg PO DAILY amlodipine 5 mg tablet 5 mg PO DAILY atorvastatin 40 mg tablet 40 mg PO DAILY cyclobenzaprine 10 mg tablet 10 mg PO TID omeprazole 20 mg capsule,delayed release(DR/EC) 20 mg PO DAILY lisinopril 20 mg tablet 20 mg PO DAILY oxybutynin chloride 10 mg tablet extended release 24hr 10 mg PO DAILY fluticasone propionate 50 mcg/actuation spray,suspension intranasal albuterol sulfate [Ventolin HFA] 90 mcg/actuation HFA aerosol inhaler inhalation montelukast 10 mg tablet 10 mg PO DAILY cetirizine 10 mg tablet 10 mg PO DAILY azithromycin 250 mg tablet 250 mg PO DIRECTED pseudoephedrine HCl [Sudogest] 30 mg tablet 30 mg PO Q4-6H Print Language: Malagasy
[2024-04-21 08:28] VITALS: BP 118/75; PULSE 81; RESP 16; TEMP 37.2; O2SAT 97
[2024-04-21] MEDS: Lidocaine HCl 1 % MPF 5 ML VIAL SUBCUT (08:48)
== END 2024-04-21 09:00 | disposition home or self-care (01) ==
PROVIDERS: Emergency Provider Emergency Medicine
DX: S09.90XA Unspecified injury of head, initial encounter (principal); S01.81XA Laceration without foreign body of other part of head, initial encounter; W18.31XA Fall on same level due to stepping on an object, initial encounter; Y93.89 Activity, other specified; Y92.039 Unspecified place in apartment as the place of occurrence of the external cause; Y99.9 Unspecified external cause status
CPT/HCPCS: 12014; 70450; 99283; 99284; J2003

== ENCOUNTER 2024-05-01 06:05 | Outpatient (REF) | payer OTHER, SELFPAY | END 2024-05-01 06:06 | disposition home or self-care (01) | LOC: CF 06:05 | PROVIDERS: Visit Provider Internal Medicine | DX: Z13.89 Encounter for screening for other disorder (principal) ==

== ENCOUNTER 2024-05-29 15:12 | Outpatient (REF) | payer OTHER, SELFPAY | END 2024-05-29 15:13 | disposition home or self-care (01) | LOC: HO.US 15:12 | PROVIDERS: PCP Internal Medicine; Visit Provider Nurse Practitioner Family | DX: R35.0 Frequency of micturition (principal); R82.90 Unspecified abnormal findings in urine; R30.0 Dysuria; R31.29 Other microscopic hematuria; N39.0 Urinary tract infection, site not specified | CPT/HCPCS: 76770 ==

== ENCOUNTER 2024-06-03 14:06 | Outpatient (AMB) | payer OTHER, SELFPAY ==
--- NOTE | 2024-06-03 14:16 | A.OFFVIS_ITS ---
Intake Visit Reasons: 2m/US Intake Note: Patient is present for 2M F/U Urology Medication:OXYBUTYNIN Antibiotic Allergy:NONE Blood Thinner:NONE TODAY'S PVR:0ML'S Accounting Associate Required: No Allergies ENVIROMENTAL Allergy (Unknown, Uncoded 06/03/24 14:47) RHINITIS environmental Allergy (Unknown, Uncoded 06/03/24 14:47) Unknown Medication List - Last Reconciled 06/03/24 by LAWRENCE Kemp- albuterol sulfate 90 mcg/actuation (Ventolin HFA) inhalation amlodipine 5 mg PO DAILY atorvastatin 40 mg PO DAILY azithromycin 250 mg PO DIRECTED celecoxib 200 mg PO DAILY cetirizine 10 mg PO DAILY cyclobenzaprine 10 mg PO TID fluticasone propionate 50 mcg/actuation sprays intranasal lisinopril 20 mg PO DAILY montelukast 10 mg PO DAILY omeprazole 20 mg PO DAILY oxybutynin chloride ER 10 mg PO DAILY pseudoephedrine HCl (Sudogest) 30 mg PO Q4-6H HPI Comments Details: Evelyn is a very pleasant 78-year-old Egyptian-speaking female patient of Dr. Radha Vallejo who was accompanied by her family member at [facility]'s office vi sit. She has a past medical history of SVT and hypertension. She presents to the office today for follow-up. Of note, patient was seen approximately 3 months ago as a new patient for ongoing lower urinary tract symptoms at which time a retroperitoneal ultrasound was ordered for further assessment evaluation and at time of last initial visit patient was noted to have a urinary tract infection and has since completed antibiotic therapy as prescribed. Recent retroperitoneal ultrasound results reviewed with the patient and her family member today.... She continues to report episodes of mixed urinary incontinence. She reports utilizing 4-6 Barb pads per day. She discusses her longstanding history of bladder issues and has previously had bladder surgery at [facility] however is unsure as to exactly what procedure she had 6 years ago. In office urinalysis results reviewed with the patient today. PVR 0 mL. We discussed further treatment options of mixed urinary incontinence to include pelvic floor therapy and or trial of other overactive bladder medication. We also discussed in office urodynamics. She denies flank pain, fever, and or chills. She otherwise offers no other issues or concerns at this time. [facility] Medical History SVT (supraventricular tachycardia) HTN (hypertension) Surgical History H/O prior ablation treatment (~01/2020) History of hysterectomy Hx of tubal ligation Family History Father No problems noted. Mother No problems noted. Social History Alcohol intake: never Patient Tobacco Use Status: Never used Tobacco Current occupational status: disabled Review of Systems Const All systems reviewed & are unremarkable except as noted in HPI and below Physical Exam Const General: cooperative, healthy appearing, comfortable, no acute distress, well developed, alert and awake Orientation/consciousness: patient oriented x3 Limitations: no limitations HEENT Head: Yes normal to inspection, Yes normocephalic and Yes atraumatic Ears: hearing grossly normal bilaterally Eyes General: appearance normal, both eyes and all related structures Neck Neck: Yes normal visual inspection and Yes trachea midline Chest Chest palpation & inspection: normal inspection of the chest Resp Effort & Inspection: normal respiratory effort and able to speak in complete sentences Cardio Rate: regular rate GI Inspection: Yes normal to inspection General: Yes no CVA tenderness Back/Spine/Pelvis Back: no CVA tenderness Skin General skin exam: no rashes or lesions noted Neuro General: patient oriented x3 Extrem General: Yes normal to inspection Psych Appearance: grossly normal and well kempt Mental Status: mental status grossly normal Speech and movement: Normal speech and movement present and Clear speech present Affect: normal affect Attitude: cooperative Thought process: Normal thought process present Thought content: Normal thought content present Insight: Fair insight present (Psych) Judgement: Fair judgement present (Psych) Office Procedures Post Void Residual Post Residual Void Post Void Residual (PVR): 0 15645-[id number] Void Residual by ultrasound Results AMB Urinalysis, Automated UA Leukoctes 0 Galina/uL Last Edit by CURRY Sanchez on 06/03/24 14:51 UA Nitrite Negative Last Edit by CURRY Sanchez on 06/03/24 14:51 UA Urobilinogen 0.2 mg/dL Last Edit by CURRY Sanchez on 06/03/24 14:5 1 UA Protein 15 mg/dL Last Edit by CURRY Sanchez on 06/03/24 14:51 UA pH 5.5 Last Edit by Matthew Muñoz CCM on 06/03/24 14:51 UA Blood 80 Darron/uL Last Edit by Matthew Muñoz CCM on 06/03/24 14:51 UA Specific [place] 1.030 Last Edit by Matthew Muñoz CCM on 06/03/24 14: 51 UA Ketone Negative Last Edit by Matthew Muñoz [facility] on 06/03/24 14:51 UA Bilirubin 0 mg/dL Last Edit by Matthew Muñoz [facility] on 06/03/24 14:51 UA Glucose 0 mg/dL Last Edit by Matthew Muñoz [facility] on 06/03/24 14:51 Results Reviewed Results Reviewed: Laboratory Last Values Urine pH (Auto) 5.5 06/03/24 14:50 Specific [place] (Auto) 1.030 06/03/24 14:50 Urine Protein (Auto) 15 mg/dL 06/03/24 14:50 Glucose (UA)(Auto) 0 mg/dL 06/03/24 14:50 Urine Ketones (Auto) Negative 06/03/24 14:50 Urine Blood (Auto) 80 Darron/uL 06/03/24 14:50 Urine Nitrite (Auto) Negative 06/03/24 14:50 Urine Bilirubin (Auto) 0 mg/dL 06/03/24 14:50 Urine Urobilinogen (Auto) 0.2 mg/dL 06/03/24 14:50 Leukocyte Esterase (Auto) 0 Galina/uL 06/03/24 14:50 Assessment & Plan Assessment & Plan (1) Microscopic hematuria: Code(s): R31.29 - Other microscopic hematuria Category: Medical (2) Mixed stress and urge urinary incontinence: Code(s): N39.46 - Mixed incontinence Category: Medical Plan In office urinalysis results reviewed with the patient today; as noted above. PVR 0 mL. Recent retroperitoneal ultrasound results reviewed with the patient today; as noted above. We discussed at length further treatment options of mixed urinary incontinence as well as risks and benefits of these treatment options. Stop oxybutynin. Start Myrbetriq as discussed and prescribed. Discussed possible near future in office urodynamics for further assessment evaluation. Follow-up in 1-3 months with PVR; or sooner with any issues, concerns, and or questions. Orders: Orders AMB Urinalysis Automated 06/03/24 Z13.9 - Encounter for screening, unspecified Medications: New mirabegron ER (Myrbetriq) 25 mg PO DAILY 30 days 30 tabs 3RF N30.10 - Interstitial cystitis (chronic) without hematuria, N32.81 - Overactive bladder, R35.1 - Nocturia, R39.15 - Urgency of urination Patient Instructions: The patient had an opportunity to ask questions regarding the treatment plan. All questions were answered. Physical exam, labs, and imaging were discussed and reviewed in detail. As well as risks, benefits, and discussion of treatment choices. No major barriers to understanding were identified. The patient expres sed understanding and agreement with the above treatment plan. The patient was made aware they should contact our office by phone for worsening of their current condition, the appearance of new symptoms, or with any questions or concerns. Compliance is encouraged with any medications and follow up testing that is ordered. It is a privilege to be allowed the opportunity to participate in? your urological care.? Again, if you have any questions or concerns If you have any questions or concerns please do not hesitate to contact me. The office is [phone]. This note is constructed using voice recognition software. While every effort has been made to ensure accuracy photographer model errors may have been included. Yours sincerely, RAN Kemp Coding Level of Care Code Est Pt Level 4 (38570) Diagnoses Microscopic hematuria R31.29 Mixed stress and urge urinary incontinence N39.46 CPT Codes Post Residual Void - PVR CPT Code: 75871-Sxxo Void Residual by ultrasound ([id number])
== END 2024-06-03 14:50 | disposition home or self-care (01) ==
PROVIDERS: PCP Internal Medicine; Visit Provider Nurse Practitioner Family
DX: Z13.9 Encounter for screening, unspecified (principal)

== ENCOUNTER → 2024-06-03 14:06 | Outpatient (BNVA) | payer OTHER, SELFPAY | PROVIDERS: PCP Internal Medicine; Visit Provider Nurse Practitioner Family | DX: R31.29 Other microscopic hematuria (principal); N39.46 Mixed incontinence; N32.89 Other specified disorders of bladder | CPT/HCPCS: 51798; 81003; 99212 ==

== ENCOUNTER → 2024-08-08 13:49 | Outpatient (BNVA) | payer OTHER, SELFPAY | PROVIDERS: PCP Internal Medicine; Visit Provider Nurse Practitioner Family | DX: M47.817 Spondylosis without myelopathy or radiculopathy, lumbosacral region (principal); M53.3 Sacrococcygeal disorders, not elsewhere classified; M46.1 Sacroiliitis, not elsewhere classified; M54.16 Radiculopathy, lumbar region | CPT/HCPCS: 99212 ==

== ENCOUNTER 2024-09-10 15:16 | Outpatient (AMB) | payer OTHER, SELFPAY ==
--- NOTE | 2024-09-10 15:17 | MHC.OFFVIS ---
Intake Visit Reasons: 3M PVR Intake Note: Patient is present for 2M F/U Urology Medication:OXYBUTYNIN Antibiotic Allergy:NONE Blood Thinner:NONE TODAY'S PVR:0ML'S Staff Climate Scientist Required: Yes Staff Climate Scientist Services: Staff Climate Scientist Present Staff Climate Scientist Name: Rodríguez [phone] Allergies ENVIROMENTAL Allergy (Unknown, Uncoded 06/03/24 14:47) RHINITIS environmental Allergy (Unknown, Uncoded 06/03/24 14:47) Unknown Medication List - Last Reconciled 09/10/24 by RAN Kemp albuterol sulfate 90 mcg/actuation (Ventolin HFA) inhalation amlodipine 5 mg PO DAILY atorvastatin 40 mg PO DAILY azithromycin 250 mg PO DIRECTED celecoxib 200 mg PO DAILY cetirizine 10 mg PO DAILY cyclobenzaprine 10 mg PO TID fluticasone propionate 50 mcg/actuation sprays intranasal lisinopril 20 mg PO DAILY montelukast 10 mg PO DAILY omeprazole 20 mg PO DAILY pseudoephedrine HCl (Sudogest) 30 mg PO Q4-6H vibegron (Gemtesa) 75 mg PO DAILY 30 days HPI Comments Details: Evelyn is a very pleasant 79-year-old Kyrgyz-speaking female patient of Dr. Radha Vallejo. She has a past medical history of SVT and hypertension. She presents to the office today for follow-up of her lower urinary tract symptoms. In discussion with the patient today she reports to be doing and feeling well. She reports no improvement in lower urinary tract symptoms of urinary frequency and urgency she has been experiencing with 25 mg of Myrbetriq daily. She has previously trialed oxybutynin with no improvement in these irritative lower urinary tract symptoms. Previous workup has included a retroperitoneal ultrasound 06/08 noting bilateral kidneys with no calculi, lesions, and or hydronephrosis. Pre void bladder volume is proximally 260 mL. Postvoid bladder volume is a proximally 25 mL. Bladder wall slightly trabeculated measuring a proximally 0.8 cm. She continues to also report report episodes of mixed urinary incontinence however feels episodes of urinary urgency and frequency are more bothersome to her. She reports utilizing 4-6 Barb pads per day. She discusses her longstanding history of bladder issues and has previously had bladder surgery at [facility] however is unsure as to exactly what procedure she had 6 years ago. Unable to obtain urine for urinalysis however PVR 0 mL. We discussed at length potential causes of lower urinary tract symptoms patient was experiencing as well as further treatment options and risks and benefits of these treatment options. She otherwise denies flank pain, fever, and or chills. She offers no other issues or concerns at this time. [facility] Medical History SVT (supraventricular tachycardia) HTN (hypertension) Surgical History H/O prior ablation treatment (~01/2020) History of hysterectomy Hx of tubal ligation Family History Father No problems noted. Mother No problems noted. Social History Alcohol intake: never Patient Tobacco Use Status: Never used Tobacco Current occupational status: disabled Review of Systems Const All systems reviewed & are unremarkable except as noted in HPI and below Physical Exam Const General: cooperative, healthy appearing, comfortable, no acute distress, well developed, alert and awake Orientation/consciousness: patient oriented x3 Limitations: language barrier HEENT Head: Yes normal to inspection, Yes normocephalic and Yes atraumatic Ears: hearing grossly normal bilaterally Eyes General: appearance normal, both eyes and all related structures Neck Neck: Yes normal visual inspection and Yes trachea midline Chest Chest palpation & inspection: normal inspection of the chest Resp Effort & Inspection: normal respiratory effort and able to speak in complete sentences Cardio Rate: regular rate GI Inspection: Yes normal to inspection General: Yes no CVA tenderness Back/Spine/Pelvis Back: no CVA tenderness Skin General skin exam: no rashes or lesions noted Neuro General: patient oriented x3 Extrem General: Yes normal to inspection Psych Appearance: grossly normal and well kempt Mental Status: mental status grossly normal Speech and movement: Normal speech and movement present and Clear speech present Affect: normal affect Attitude: cooperative Thought process: Normal thought process present Thought content: Normal thought content present Insight: Fair insight present (Psych) Judgement: Fair judgement present (Psych) Assessment & Plan Assessment & Plan (1) Bladder trabeculation: Code(s): N32.89 - Other specified disorders of bladder Category: Medical (2) Mixed stress and urge urinary incontinence: Code(s): N39.46 - Mixed incontinence Category: Medical (3) Urinary frequency: Code(s): R35.0 - Frequency of micturition Category: Medical Plan Unable to obtain urine for urinalysis however PVR 0 mL. Stop Myrbetriq as discussed and prescribed. Start Gemtesa as discussed and prescribed. We discussed further treatment options of mixed urinary incontinence and lower urinary tract symptoms patient was experiencing in risks and benefits of these interventions. Information provided regarding urodynamics. All questions were answered. We discussed bladder triggers/irritants. Follow-up in 1-3 months with PVR; or sooner with any issues, concerns, and or questions. Medications: New vibegron (Gemtesa) 75 mg PO DAILY 30 tabs 3RF 30 days N32.81 - Overactive bladder Discontinued mirabegron ER (Myrbetriq) Discontinued Reason: Doctor's Order 25 mg PO DAILY 30 days 30 tabs 3RF N30.10 - Interstitial cystitis (chronic) without hematuria, N32.81 - Overactive bladder, R35.1 - Nocturia, R39.15 - Urgency of urination Patient Instructions: The patient had an opportunity to ask questions regarding the treatment plan. All questions were answered. Physical exam, labs, and imaging were discussed and reviewed in detail. As well as risks, benefits, and discussion of treatment choices. No major barriers to understanding were identified. The patient expressed understanding and agreement with the above treatment plan. The patient was made aware they should contact our office by phone for worsening of their current condition, the appearance of new symptoms, or with any questions or concerns. Compliance is encouraged with any medications and follow up testing that is ordered. It is a privilege to be allowed the opportunity to participate in? your urological care.? Again, if you have any questions or concerns If you have any questions or concerns please do not hesitate to contact me. The office is [phone]. This note is constructed using voice recognition software. While every effort has been made to ensure accuracy middle school volleyball coach errors may have been included. Yours sincerely, RAN Kemp Coding Level of Care Code Est Pt Level 4 (27025) Diagnoses Bladder trabeculation N32.89 Mixed stress and urge urinary incontinence N39.46 Urinary frequency R35.0
--- OUTSIDE RECORDS SUMMARY | 2024-09-10 18:49 | XMS_ITS ---
Author Organization [facility] claudine [place] Address [address] [facility] [place] [address] Care Team Providers Care Clerical Supervisor Name Role Phone Ronda Marquez Primary Care Provider Roya vailaAddison Paz Unavailable [phone] Allergies Allergen (clinical drug ingredient) Drug/Non Drug Allergy documented on EMR Reaction Allergy Type Onset Date Status ibuprofen Advil Unknown Drug Allergy Active aspirin Aspirin Unknown Drug Allergy Active REASON FOR VISIT Foot pain Medications Medication SIG (Take, Route, Frequency, Duration) Notes [...] 20 MG Oral for 90 Days Active Social History Tobacco Use: Social History Observation Description Date Details (start date - stop date) Former Smoker NA - NA Tobacco Use/Smoking Question Answer Notes Are you a: former smoker Additional Findings: Tobacco Non-User Current no n-smoker Alcohol Screen Question Answer Notes Did you have a drink containing alcohol in the p ast year? Yes Points 0 Interpretation Negative Tobacco use other than smoking: Question Answer Notes Are you an other tobacco user? No Vital Signs Height 5 ft 1 in in 01/01/2024 Weight 176 lbs 01/01/2024 BMI 33.25 kg/m2 01/01/2024 Encounters Encounter Location Date Provider Diagnosis [facility] [place] [address] [place] [address] 01/01/2024 Addison Lepe Pain in left foot M79.672 ; Flat foot [pes planus] (acquired), left foot M21.42 ; Posterior tibial tendinitis of left lower extremity M76.822 ; Acquired pes planus of right foot M21.41 and Difficulty walking R26.2 Assessments Encounter Date Diagnosis (ICD Code) Assessment Notes Treatment Notes Treatment Clinical Notes Section Notes 01/01/2024 Pain in left foot (ICD-10 - M79.672) 01/01/2024 Flat foot [pes planus] (acquired), left foot (ICD-10 - M21.42) 01/01/2024 Posterior tibial tendinitis of left lower extremity (ICD-10 - M76.822) 01/01/2024 Acquired pes planus of right foot (ICD-10 - M21.41) 01/01/2024 Difficulty walking (ICD-10 - R26.2) Plan Of Treatment Medication Medication Name Sig Start Date Stop Date Notes AFO-Hinged as directed Wear Daily for as needed 01/01/2024 Next Appt Details Follow Up: prn, Reason: Progress Notes * Nanci QUIROShDOB: [birth year] (79 yo F)Acc No.[id number]:01/01/2024 Progress Note Patient:?Sandra QUIROS Provider:?Addison Lepe DPM :1945???Age:78 Y???Sex:Female D ate:01/01/2024 Address:[address] [place] [address] [place] [address] Pcp:Ronda Vallejo Subjective: * Chief Complaints: * ???Foot pain * HPI: ???Foot Pain:?Nature:?aching, pulling, tenderness, throbbing, weakness.?Location:?LEFT.?Duration:?1 year or more.?Course:?unresolved.?Aggravated:?any pressure, standing, walking.?Treatments:?rest/alter normal daily activity, ice , change in shoes , medication ( Celebrex 200mg, Aspercream) , custom innersoles , bracing, straps, wraps which were initially successful in relieving discomfort, but were difficult to apply/remove regularly.? * ROS:?General/Constitutional:?Nausea?denies.?Vomiting?denies.?Hunger Thirst?denies.?Loss appetite?denies.?Chills?denies.?Fatigue?denies.?Fever?denies.?Night Sweats?denies.?Unexplained weight loss?denies.?Unexplained weight gain?denies.?HEENTM:?Dentures?denies.?Dizziness?denies.?Glasses/contacts?admits.?Retinopathy?de nies.?Blurred/double vision?denies.?TMJ?denies.?Discharge/drainage?denies.?Implants?denies.?Sore throat?denies.?Dental implants?admits.?Hard of hearing ?denies.?Difficulty chewing/swallowing/speaking?denies.?Nose bleeds?denies.?Sore mouth?denies.?Respiratory:?On Oxygen?denies.?Pneumonia/pleurisy?denies.?Bronchitis?denies.?Emphysema?denies.?C oughing?denies.?Cough blood?denies.?Shortness of breath?denies.?Wheezing?denies.?Cardiovascular:?Pacemaker?denies.?MVP?denies.?WPW?denies.?CHF?denies.?Heart attack?denies.?Septal defect?denies.?Rapid beat?denies.?Chest pain ?denies.?Atrial Fib.?denies.?Murmur/Palpitations?denies.?Gastrointestinal:?Hemorrhoids?denies.?Stomach/Abdominal pain?denies.?Dark blood stool?denies.?Irritable bowel ?denies.?Constipation?denies.?Diarrhea?denies.?Hematology:?Swelling?denies.?Clots?denies.?Varicose Veins?admits.?Bruising?denies.?Bleeding problem?denies.?Genitourinary:?Blood urine?denies.?Frequent/Painfu/urination/bladder control?admits.?Kidney stones?denies.?Infection (UTI)?denies.?Nephropathy?denies.?sex trans dis (STD)?denies.?Prostate?denies.?Musculoskeletal:?Hammertoes?denies.?Bunions?admits.?Back Pain?denies.?Muscle Cramps/ Resting?admits.?Muscle cramps / walking?admits.?Generalized aches and pains?denies.?Weakness?denies.?Integ.:?Ramesh?denies.?Scars?denies.?Corns/calluses?denies.?Ingrown nails?denies.?Painful nails?denies.?Open Sores?denies.?Rashes?denies.?Neurologic:?Difficulty sleeping?admits.?Brain disorder?denies.?Numbness?denies.?Balance trouble?denies.?Confusion?denies.?Fainting/blackouts?denies.?Tingling?denies.?Tr emors?denies.? * Medical History:? * Surgical History:?lis greco 1994ovaries surgery 1993 * Hospitalization/Major Diagno stic Procedure:?Denies Past Hospitalization * Family History:?Mother: dece ased.?Father: , arthritis, stroke, foot problems, defects, poor circulation.? * Social History:?Tobacco Use:?Tobacco Use/Smoking?Are you a:?former smoker ?Additional Findings: Tobacco Non-User?Current non-smoker ?Tobacco use other than smoking?Are you an other tobacco user??No ???Drugs/Alcohol:?Drugs?Have you used drugs other than those for medical reasons in the past 12 months??No ?Alcohol Screen?Did you have a drink containing alcohol in the past year??Yes ?Points?0 ?Interpretation?Negative ???Miscellaneous:?Caffeine: no. ?Children: no. * Medications:?TakingLisinopri l 20 MG Tablet TAKE 1 TABLET BY MOUTH EVERY MORNING Oral amLODIPine Besylate 10 MG Tablet Oral Omeprazole 20 MG Capsule Delayed Release Oral Cetirizine HCl Montelukast Sodium 10 MG Tablet Oral Atorvastatin Calcium 40 MG Tablet Oral Celecoxib 200 MG Capsule TAKE 1 CAPSULE BY MOUTH DAILY IN THE MORNING Oral Custom Orthotics as directed ASO Ankle/Foot Stablizing AFO As directed Wear Daily Medication List reviewed and reconciled with the patientTaking Lisinopril 20 MG Tablet TAKE 1 TABLET BY MOUTH EVERY MORNING Oral Taking amLODIPine Besylate 10 MG Tablet Oral Taking Omeprazole 20 MG Capsule Delayed Release Oral Taking Cetirizine HCl Taking Montelukast Sodium 10 MG Tablet Oral Taking Atorvastatin Calcium 40 MG Tablet Oral Taking Celecoxib 200 MG Capsule TAKE 1 CAPSULE BY MOUTH DAILY IN THE MORNING Oral Taking Custom Orthotics as directed Taking ASO Ankle/Foot Stablizing AFO As directed Wear Daily Medication List reviewed and reconciled with the patient * Allergies:?AspirinAdvilyes[A llergies Verified] Objective: * Vitals:?Ht: 5 ft 1 in, Wt:17 6, BMI:33.25, Shoe size:9. * Examination: ???Orthopedic: ?MUSCLE STRENGTH:?5/5 all groups in a symmetrical fashion , B/L.?FOOT MORPHOLOGY:?Pes Planus structure , B/L.?TENDONITIS:?CONT, Pain on palpation, inflammation, and fusiform swelling to, Posterior Tibial Tendon, LEFT.?General Examination: ?GENERAL APPEARANCE:?Reveals a pleasant, alert, well-nourished, well- developed, well hydrated individual, who demonstrates proper attention to hygiene/body habitus, and is in no acute distress , Pt accompanied by , Daughter , and Grand-son,?who serves as , Slide Machine Tender/Lawn Mower Operator , additional Historian , and/who are physically present in exam room at time of visit.?ORIENTED:?person, place, and time.?Neurological: ?SENSORY:?Neurological exam reveals intact sensorium, pain sensation normal, vibration sensation intact, pinprick sensation is normal in the lower extremities, Pt denies, anesthesia, burning, paresthesia, tingling, B/L.?DEEP TENDON REFLEXES:?Achilles, 2/4, B/L.?Vascular: ?DP PULSES (B):?2/4, B/L.?PT PULSES (B):?2/4, B/L.?CAPILLARY FILL TIME:?immediate, all digits, B/L.?TROPHIC CONDITION-TEXTURE/ELASTICITY/TURGOR/HAIR GROWTH (B):?normal, B/L.?TEMPERTURE GRADIENT (C):?warm to cool, proximal to distal, B/L.?PIGMENTATION:?normal, B/L.?EDEMA (C):?absent, B/L.?Dermatologic: ?SKIN FINDINGS:?Skin exam reveals normal texture, elasticity, and turgor. There are no masses. The interspaces are clear.? * Physical Examination:?L1902 ASO-AFO:?Application of ankle foot orthosis, ankle gauntlet, prefabricated, including fitting and adjustment:?Small , Left.? Assessment: * Assessment: 1.?Pain in left foot - M79.6 72 (Primary)???2.?Flat foot [pes planus] (acquired), left foot - M21.42???3.?Posterior tibial tendinitis of left lower extremity - M76.822???Specify :Chronic problem, Worse (4),Rx Management (4)???4.?Acquired pes planus of right foot - M21.41???5.?Difficulty walking - R26.2??? Plan: * Treatment: * Procedure Codes:? * Preventive Medicine:? ??Counseling:?Discussion:?-14: Office or other outpatient visit for the evaluation and management of an established patient, which required a medically appropriate history and/or examination and MODERATE level of DECISION MAKING for: 1 OR MORE CHRONIC PROBLEM(S) THATS WORSENING, 2 STABLE CHRONIC PROBLEMS, A NEWLY DIAGNOSED PROBLEM WITH UNCERTAIN PROGNOSIS, AN ACUTE COMPLICATED INJURY WITH MULTIPLE TREATMENT OPTIONS, OR AN ACUTE PROBLEM WITH ACCOMPANYING SYSTEMIC SYMPTOMS, THAT POSE(S) A MODERATE RISK OF MORBIDITY. THIS CONDITION MAY ALSO INCLUDE RX DRUG MANAGEMENT, OR A DECISON FOR MINOR SURGERY. The visit on the day of the encounter encompassed interpreting the data and educating the patient as to the nature of their condition, treatment options available according to their individual PMH, meds, allergies, and overall health/living conditions, as well as any potential risks or complications that may occur from a failure to adhere to, and participate in, the recommended course of therapy. The discussion included a complete verbal, and/or written explanation of the examination results, any x-rays taken, the proposed diagnosis, and outline of the treatment plan. A schedule for future care needs was also explained. The patient verbalized an understanding of the instructions at this time and agreed to be an active participant in their treatment. If the patient should think of any questions or concerns after the visit, I have encouraged the patient to call the office.?Myositis/Tendonitis:?TENDONITIS: I explained to the patient the possible etiologies of their Tendonitis, including foot type/shoegear/activity level/exercise routine and the risks/benefits of the different treatment options for their pain including: No treatment at all, Rest, Ice, Oral Prednisone, NSAIDs(only if well tolerated after meals), New/supportive Shoegear, Strappings and Tapings, Stretching exercises, Deep Tissue Massage, Heel cups/cushions, Arch support/shoe inserts, Custom orthoses, Foot/Ankle AFO Bracing, Cast boot with crutches/cane/or walker for assisted ambulation, Topical analgesics including Aspercream/Voltaren gel, Physical Therapy, EPAT/ESWT, and Interfil injection therapy. Tendon surgical procedures including reefing and/or transfers were also detailed should either one become necessary through failure of conservative treatment. The advantages and disadvantages of each option were discussed and the patient's questions re: shoegear, the difference between custom vs prefabricated inserts, activity level, PO vs Topical medications (and their respective potential complications/drug interactions/side effects), consistency in home treatment regimens for optimal success, as well as the potential benefits and possible complications of reconstructive surgery (includeing, but not limited to failure, prolongued/delayed healing, infection, weakness, persistant pain) were answered to their verbally confirmed satisfaction.?Orthotics:?I explained to the patient the benefits of OT use. I explained that orthoses are medically necessary to decrease the foot pain through proper mechanical control, support of their foot, AFO - I explained to the patient the benefits of AFO use. Rx [facility] type hinged ankle AFO Lower Extremity Bracing to accomodate the patients deformity and result in pain relief without surgery.?P.R.I.C.E.:?The patient was counseled on the use of P.R.I.C.E. and NSAIDS (if well tolerated) to aid in the recovery from their painful condition, Recommended Topical analgesics including Aspercream/Biofreeze/Voltaren gel as directed.?Shoe Gear Counseling:?The patient and I reviewed the types of shoes they should be wearing. My recommendation included obtaining a well-fitted shoe with a good supportive, non-foldable nor twistable sole, plenty of toe/room for the forefoot, and proper arch support. Based on todays examination, I recommended the patient look for new shoes, by having their feet professionally measured. We discussed that generally the best time of the day for a shoe fitting is the afternoon. Different shoes types and brands to best match the patients occupation and vocation were discussed. Specific brand selection will be up to the patient, their individual foot condition/deformities, and fit. The patient and I reviewed the standard new shoe break in period by wearing them for a few hours a day while checking for redness or sores as wear time is increased. The patient verbally confirmed to understanding the information discussed.? ??Screening/Special Tests:?Fall Risk?Screening:?No falls in the past year ?FALLS: Screening for Future Fall Risk?Have you had any falls with injury in the past year??No * Follow Up:?prn * Images: * Sign off status: Completed true * Provider:?Addison Lepe DPM Date:?2023 Generated for Jb reynoso/Alexandr/Tony on:?09/10/2024 06:49 PM EST History and Physical Notes * HPI (History of Present Illness) Category Sub-Category Detail Notes Category Not es Foot Pain Nature: aching, pulling, tenderness, throbbing, [...] regularly Physical Examination Category Sub-Category Detail Notes Section Note s L1902 ASO-AFO Application of ankle foot orthosis, ankle gauntlet, prefabricated, including fitting and adjustment: Small , Left Examination Category Sub-Category Detail Notes Category Not es Neurological SENSORY: Neurological exa m reveals intact sensorium, pain sensation normal, vibration sensation intact, pinprick sensation is normal in the lower extremities, Pt denies, anesthesia, burning, paresthesia, tingling, B/L DEEP TENDON REFLEXES: Achilles, 2/4, B/L Dermatologic SKIN FINDINGS: Skin exam reveal s normal texture, elasticity, and turgor. There are no masses. The interspaces are clear Orthopedic FOOT MORPHOLOGY: Pes Planus structure , B /L TENDONITIS: CONT, Pain on palpat ion, inflammation, [...] , and Grand-son, who serves as , Slide Machine Tender/Lawn Mower Operator , additional Historian , and/who are physically present in exam room at time of visit ORIENTED: person, place, and t vicki Vascular DP PULSES (B): 2/4, B/L PT PULSES (B): 2/4, B/L CAPILLARY FILL TIME: immediate, all digi ts, B/L TEMPERTURE GRADIENT (C): warm to cool, p roximal to distal, B/L TROPHIC CONDITION-TEXTURE/ELASTICITY/TURGOR/HAIR GROWTH (B): normal, B/L EDEMA (C): absent, B/L PIGMENTATION: normal, B/L
--- OUTSIDE RECORDS SUMMARY | 2024-09-10 18:50 | XMS_ITS | Encounter Summary ---
Author Organization [facility] Address [address] [place] [address] [address] [address] Care Team Providers Care Director Veterinary Name Role Phone Ronda Marquez MD Primary Care Provide r Encounter Details Date Type Department Care Team (Late st Contact Info) Description 06/29/2022 Orders Only [facility] [address] [place] [address] Yuliya Santiago MD [address] [place] [address] Social History Tobacco Use Types Packs/Day Years Used Date Smoking Tobacco: Never Assessed Comments Unknown Sex and Gender Information Value Date Recorded Sex Assigned at Female 05/15/2022 10:20 AM EDT Legal Sex Female 10:20 AM EDT Gender Identity Female 05/15/2022 10:20 AM EDT Sexual Orientation Straight 05/15/2022 10 :20 AM EDT documented as of this encounter Plan of Treatment Upcoming Encounters Date Type Department Care Team (Late st Contact Info) Description 11/11/2024 10:45 AM EDT Office Visit [facility] [address] [place], [place] [phone] Ronda Marquez MD [address] [place] [address] documented as of this encounter Visit Diagnoses Not on filedocumented in this encounter Care Teams Director Veterinary Relationship Specialty Start Date End Date Ronda Marquez MD [address] [place] [address] PCP - General Family Medicine 03/09/22 documented as of this encounter
--- OUTSIDE RECORDS SUMMARY | 2024-09-10 18:50 | XMS_ITS | Encounter Summary ---
Author Organization [employer] Address [address] [place] [address] [address] [address] Care Team Providers Care Food Expeditor Name Role Phone Ronda Marquez MD Primary Care Provide r Reason for Visit * Reason Onset Date Comments Referral 04/10/2023 Encounter Details Date Type Department Care Team ([facility] st Contact Info) Description 04/10/2023 Telephone [facility] [address] [place] [address] Ronda Marquez MD [address] [place] [address] Referral Social History Tobacco Use Types Packs/Day Years Used Date Smoking Tobacco: Former Cigarettes Passive Smoke Exposure: Past Smokeless Tobacco: Never Depression Answer Date Recorded Patient Health Questionnaire-9 Score 4 03/02/2023 Depression Answer Date Recorded Patient Health Questionnaire-2 Score 2 03/02/2023 Comments Unknown Sex and Gender Information Value Date Recorded Sex Assigned at Female 05/15/2022 10:20 AM EDT Legal Sex Female 10:20 AM EDT Gender Identity Female 05/15/2022 10:20 AM EDT Sexual Orientation Straight 05/15/2022 10 :20 AM EDT documented as of this encounter Miscellaneous Notes * Telephone Encounter - Loni Ashwini - 04/10/2023 11:21 AM EDT Tc from pt requesting to get help to book [place] app[place] [facility] has called them several timeand left voice message at phone # but does not seem to get a call back. documented in this encounter Plan of Treatment Upcoming Encounters Date Type Department Care Team (Late st Contact Info) Description 11/11/2024 10:45 AM EDT Office Visit [facility] [address] [place] [address] Ronda Marquez MD [address] [place] [phone] documented as of this encounter Visit Diagnoses Not on filedocumented in this encounter Additional Health Concerns Assessment Noted Time PHQ-9 Depression Total Score: 4 03/02/20 23 1:46 PM EDT documented as of this encounter Care Teams Food Expeditor Relationship Specialty Start Date End Date Ronda Marquez MD [address] [place] [phone] PCP - General Family Medicine 03/09/22 documented as of this encounter
--- OUTSIDE RECORDS SUMMARY | 2024-09-10 18:50 | XMS_ITS ---
Author Organization [facility] Address [address] [place] [address] Care Team Providers Care Supervisor [employer] Name Role Phone Ronda Marquez Primary Care Provider Roya vailable Addison Lepe Unavailable [phone] Encounters Encounter Location Date Provider Diagnosis [address] [address] 11/27/2023 Addison Lepe Plan Of Treatment No Information Progress Notes * Nanci QUIROShDOB: [birth year] (79 yo F)Acc No.[id number]:11/27/2023 Progress Note Patient:Sandra FLANAGAN Provider:?Addison Lepe DPM :1945???Age:78 Y???Sex:Female D ate:11/27/2023 Address:[address] [place] [address] [place], [place] [phone] Pcp:Ronda Vallejo Subjective: * Chief Complaints: * ??? * Medical History:? Objective: * Vitals:? Assessment: Plan: * Treatment: * Images: * The named appointment provid er may or may not be the originator of this progress note, and it is not deemed complete until electronically signed by the appointment provider. Sign off status: Pending * Provider:?Addison Lepe DPM Date:?2023 Generated for Jb reynoso/Alexandr/eTransmitting on:?09/10/2024 06:50 PM EST
--- OUTSIDE RECORDS SUMMARY | 2024-09-10 18:50 | XMS_ITS | Encounter Summary ---
Author Organization [employer] Address [address] [facility] [address] [place] [address] Care Team Providers Care Threading Machine Tender Name Role Phone Ronda Marquez MD Primary Care Provide r Reason for Visit * Reason Comments Med Refill Encounter Details Date Type Department Care Team ([facility] st Contact Info) Description 2023 Refill [facility] [address] [place] [address] Harpal Tobin MD [address] [place] [address] Moderate persistent asthma with exacerbation Social History Tobacco Use Types Packs/Day Years Used Date Smoking Tobacco: Former Cigarettes Passive Smoke Exposure: Past Smokeless Tobacco: Never Depression Answer Date Recorded Patient Health Questionnaire-9 Score 4 03/02/2023 Housing Stability Answer Date Recorded What is your housing situation today? I have lauro thompson 05/01/[address] you li ve. Do you have problems with any of the following? None of the above 05/01/2023 Food Insecurity Answer Date Recorded Within the past 12 months, y ou worried that your food would run out before you got money to buy more: Never True 05/01/2023 Within the past 12 months,th e food you bought just didn't last and you didn't have enough money to get more: Never True Transportation Answer Date Recorded In the past 12 months, has l ack of transportation kept you from medical appts, meetings, work or from getting things needed for daily living? No 05/01/2023 Utilities Answer Date Recorded In the past 12 months, has t he electric, gas, oil or water company threatened to shut off services in your home? No 05/01/2023 Depression Answer Date Recorded Patient Health Questionnaire-2 [...] Description 11/11/2024 10:45 AM EDT Office Visit [facility] [address] [place] [phone] Ronda Marquez MD [address] [place] [address] documented as of this encounter Visit Diagnoses Diagnosis Moderate persistent asthma with exacerbation Unspecified asthma, with exacerbation documented in this encounter Additional Health Concerns Assessment Noted Time PHQ-9 Depression Total Score: 4 03/02/20 23 1:46 PM EDT documented as of this encounter Care Teams Threading Machine Tender Relationship Specialty Start Date End Date Ronda Marquez MD [address] [place] [id number] PCP - General Family Medicine 03/09/22 documented as of this encounter
--- OUTSIDE RECORDS SUMMARY | 2024-09-10 18:50 | XMS_ITS | Encounter Summary ---
Author Organization [employer] Address [address] [place] [address] 7 [place] [address] Care Team Providers Care Supervisor Testing Name Role Phone Ronda Marquez MD Primary Care Provide r Reason for Visit * Reason Comments Med Refill Encounter Details Date Type Department Care Team ([facility] st Contact Info) Description 09/09/2024 Refill [facility] [address] [place] [address] Ronda Marquez MD [address] [place] [address] Social History Tobacco Use Types Packs/Day Years Used Date Smoking Tobacco: Former Cigarettes Passive Smoke Exposure: Past Smokeless Tobacco: Never Alcohol Use Standard Drinks/Week Comments Never 0 (1 standard drink = 0.6 oz pur e alcohol) Depression Answer Date Recorded Patient Health Questionnaire-9 Score 0 03/03/2024 Patient Health Questionnaire-9 Score 0 03/03/2024 Last PHQ-9: Questionnaire Data Not on file 0 03/03/2024 Housing Stability Answer Date Recorded What is your housing situation today? I have lauro thompson 07/18/[address] you li ve. Do you have problems with any of the following? None of the above 07/18/2024 Food Insecurity Answer Date Recorded Within the past 12 months, y ou worried that your food would run out before you got money to buy more: Never True 07/18/2024 Within the past 12 months,th e food you bought just didn't last and you didn't have enough money to get more: Never True 09/2024 Transportation Answer Date Recorded In the past 12 months, has l ack of transportation kept you from medical appts, meetings, work or from getting things needed for daily living? No 07/18/2024 Utilities Answer Date Recorded In the past 12 months, has t he electric, gas, oil or water company threatened to shut off services in your home? No 07/18/2024 Depression Answer Date Recorded Patient Health Questionnaire-2 Score 0 03/03/2024 Internet Access Answer Date Recorded Internet Access Q1 Yes 07/18/2024 Internet Access Q2 Not on file 07/18/2024 Comments Unknown Sex and Gender Information Value [...] 10:45 AM EDT Office Visit [facility] [address] [place] [address] Ronda Marquez MD [address] [place] [address] documented as of this encounter Visit Diagnoses Not on filedocumented in this encounter Additional Health Concerns Assessment Noted Time PHQ-9 Depression Total Score: 0 03/03/20 24 9:32 AM EDT documented as of this encounter Care Teams Supervisor Testing Relationship Specialty Start Date End Date Ronda Marquez MD [address] [place] [id number] PCP - General Family Medicine 03/09/22 documented as of this encounter
--- OUTSIDE RECORDS SUMMARY | 2024-09-10 18:50 | XMS_ITS ---
Author Organization [facility] claudine Shirland Address [address] [place] [address] Care Team Providers Care Consulting Sme Name Role Phone Ronda Marquez Primary Care Provider Roya vailaAddison Paz Unavailable [phone] Allergies Allergen (clinical drug ingredient) Drug/Non Drug [...] EVERY MORNING Oral for 90 Days Active Social History [...] Signs Height 5 ft 1 in in 10/16/2023 Weight 176 lbs 10/16/2023 BMI 33.25 kg/m2 10/16/2023 Encounters Encounter Location Date Provider Diagnosis [facility] [place] [address] [place] [address] 10/16/2023 Addison Lepe Pain in left foot M79.672 ; Flat foot [pes planus] (acquired), left foot M21.42 ; Posterior tibial tendinitis of left lower extremity M76.822 and Acquired pes planus of right foot M21.41 Assessments Encounter Date Diagnosis (ICD Code) Assessment Notes Treatment Notes Treatment Clinical Notes Section Notes 10/16/2023 Pain in left foot (ICD-10 - M79.672) 10/16/2023 Flat foot [pes planus] (acquired), left foot (ICD-10 - M21.42) 10/16/2023 Posterior tibial tendinitis of left lower extremity (ICD-10 - M76.822) 10/16/2023 Acquired pes planus of right foot (ICD-10 - M21.41) Plan Of Treatment Medication Medication Name Sig Start Date Stop Date Notes ASO Ankle/Foot Stablizing AFO As directe d Wear Daily for as needed 10/16/2023 Next Appt Details Follow Up: prn, Reason: Progress Notes * CHULA ZaneOB: [birth year] (79 yo F)Acc No.[id number]:10/16/2023 Progress Note Patient:?Nanci QUIROSh Provider:?Addison Lepe DPM :1945???Age:78 Y???Sex:Female D ate:10/16/2023 Address:[address] [place], [place] [id number] Pcp:Ronda Vallejo Subjective: * Chief Complaints: * ???Foot pain * HPI: ???Foot Pain:?Nature:?aching, pulling, tenderness, throbbing, weakness.?Location:?LEFT.?Duration:?1 year or more.?Course:?unresolved.?Aggravated:?any pressure, standing, walking.?Treatments:?rest/alter normal daily activity, ice , change in shoes , medication ( Celebrex 200mg, Aspercream) , custom?innersoles.? * ROS:?General/Constitutional:?Nausea?denies.?Vomiting?denies.?Hunger Thirst?denies.?Loss appetite?denies.?Chills?denies.?Fatigue?denies.?Fever?denies.?Night Sweats?denies.?Unexplained weight loss?denies.?Unexplained [...] * Medical History:? * [facility] * Hospitalization/Major Diagno stic Procedure:?Denies [...] THE MORNING Oral Custom Orthotics as directed Medication List reviewed and reconciled with the [...] MORNING Oral Taking Custom Orthotics as directed Medication List reviewed and reconciled with the patient * Allergies:?AspirinAdvilyes[A llergies Verified] Objective: * Vitals:?Ht: 5 ft 1 in, Wt:17 6, BMI:33.25, Shoe size:9. * Examination: ???Orthopedic: ?MUSCLE STRENGTH:?5/5 all groups in a symmetrical fashion , B/L.?FOOT MORPHOLOGY:?Pes Planus structure , B/L.?TENDONITIS:? Pain on palpation, inflammation, and fusiform swelling to, Posterior Tibial Tendon, LEFT.?General Examination: ?GENERAL APPEARANCE:?Reveals a pleasant, alert, well-nourished, well- developed, well hydrated individual, who demonstrates proper attention to hygiene/body habitus, and is in no acute distress , Pt accompanied by , Daughter , who serves as , Shoe Dyer/Cementing Bulk Material Operator , additional Historian , and/who is physically [...] lower extremity - M76.822???Specify :Chronic problem, Worse (4)???4.?Acquired pes planus of right foot - M21.41??? Plan: * Treatment: * Procedure Codes:?L1902 AFO Marjorie NK GAUNTLT PREFAB W FIT ADJ, Modifiers: LT * Preventive Medicine:? ??Counseling:?Discussion:?-14: Office or other [...] the patient the benefits of AFO use. Recommend ASOAFO Lower Extremity Bracing to accomodate the patients deformity and result in pain relief without surgery, Patient signed confirmation form indicating receipt of DME device.?P.R.I.C.E.:?The patient was counseled on the use of [...] DPM Date:?2023 Generated for Jb reynoso/Alexandr/eTransmitting on:?09/10/2024 06:49 PM EST History and Physical [...] innersoles Physical Examination Category Sub-Category Detail Notes Section [...] Pes Planus structure , B /L TENDONITIS: Pain on palpation, i nflammation, and fusiform swelling to, Posterior Tibial Tendon, LEFT MUSCLE STRENGTH: 5/5 all groups in a symmetrical fashion , B/L General Examination GENERAL APPEARANCE: Reveals a pleasant, alert, well- nourished, well-developed, well hydrated individual, who demonstrates proper attention to hygiene/body habitus, and is in no acute distress , Pt accompanied by , Daughter , who serves as , Shoe Dyer/Cementing Bulk Material Operator , additional Historian , and/who is physically [...]
--- OUTSIDE RECORDS SUMMARY | 2024-09-10 18:50 | XMS_ITS | Clinical Summary ---
Author Organization [employer] Address [address] [place] [address] [address] [place] [address] Care Team Providers Care Product Manager Medical Device Name Role Phone Ronda Marquez MD Primary Care Provide r Allergies Active Allergy Reactions Criticality Noted Date Comments Aspirin 06/21/2016 Medications azelastine (Astelin) 0.1 % nasal sprayIndications: Allergic rhinitis, unspecified seasonality, unspecified trigger spray 2 spray by intranasal route 2 times every day in each nostril 30 mL 1 2 Active acetaminophen (Tylenol 8 Hour) 650 MG ER tabletIndications :Other chronic pain Take 1 tablet by mouth every 8 hours as needed. Swallow whole with water. Do not break, crush, dissolve, or chew. 90 tablet 1 3 Active D3 Super Strength 50 MCG (2000 UT) capsule TAKE 1 CAPSULE BY MOUTH EVERY DAY 2 Active SM Dry Eye Relief 0.2-0.2-1 % solution USE IN EACH EYE THREE TIMES DAILY DIRECTED 2 Active Deep Sea Nasal [place] 0.65 % nasal spray USE 1-2 SPRAYS IN EACH NOSTRIL EVERY 2 TO 3 HOURS NEEDED FOR NASAL CONGESTION 2 Active Capsaicin 0.035 % creamIndications: Chronic pain of both ankles Apply thin layer to affected area three times daily as needed / Belizean label 42.5 g 3 3 Active Blood Pressure Monitoring (Adult Blood Pressure Cuff Lg) kit 1 Device in the morning. 1 kit 3 Active Diclofenac Sodium (Voltaren) 1 % gelIndications:Ch ronic pain of both ankles Apply on affected area no more than twice a day as needed 30 g 1 3 Active olopatadine (Pataday) 0.2 % ophthalmic solution Administer 1 drop into affected eye(s) in the morning. 2.5 mL 2 3 Active pseudoephedrine (Sudafed) 30 MG tablet Take 1 tablet (30 mg) by mouth every 4 (four) hours if needed for congestion for up to 10 days. 30 tablet 4 Active montelukast (Singulair) 10 MG tabletIndications :Moderate persistent asthma with exacerbation TAKE 1 TABLET BY MOUTH IN THE EVENING 90 tablet 3 4 Active omeprazole (PriLOSEC) [address] capsuleIndication s:Gastroesophagea l reflux disease, unspecified whether esophagitis present TAKE 1 CAPSULE BY MOUTH BEFORE BREAKFAST 90 capsule 3 4 Active albuterol (2.5 MG/3ML) 0.083% nebulizer solutionIndicatio ns:Moderate persistent asthma with exacerbation INHALE 1 AMPULE USING A NEBULIZER EVERY 4 HOURS NEEDED FOR WHEEZING 90 mL 4 Active cyclobenzaprine (Flexeril) 10 MG tabletIndications :Right hip pain Take 1 tablet (10 mg) by mouth 3 times daily for 10 days. 30 tablet 4 Active atorvastatin (Lipitor) 40 MG tablet TAKE 1 TABLET BY MOUTH AT BEDTIME 90 tablet 4 Active fluticasone (Flonase) 50 MCG/ACT nasal spray INSTILL 2 SPRAYS IN EACH NOSTRIL ONCE DAILY 16 g 4 Active fexofenadine (Elizabet) 180 MG tablet Take 1 tablet (180 mg) by mouth if needed each day (Allergies) for up to 14 days. 14 tablet 4 Active Dextromethorphan- guaiFENesin (Mucinex DM) 30-600 MG tablet sustained-release 12 hour Use 1 tab TID 28 tablet 4 Active albuterol (Ventolin HFA) 108 (90 Base) MCG/ACT inhalerIndication s:Acute exacerbation of chronic obstructive airways disease (CMS/HCC) INHALE 2 PUFFS BY MOUTH EVERY 4 HOURS NEEDED FOR WHEEZING OR SHORTNESS OF BREATH OR FOR COUGH 18 g 4 Active Arnuity Ellipta 100 MCG/ACT inhalerIndication s:Moderate persistent asthma with exacerbation INHALE 1 PUFF BY MOUTH EVERY DAY AT THE SAME TIME 30 each 2 4 Active amLODIPine (Norvasc) 10 MG tabletIndications :Primary hypertension Take 1 tablet (10 mg) by mouth Once per day. 90 tablet 1 5 07/29/19 26 Active lisinopril 40 MG tabletIndications :Primary hypertension Take 1 tablet (40 mg) by mouth Once per day. 90 tablet 1 5 07/29/19 26 Active celecoxib (CeleBREX) 200 MG capsuleIndication s:Arthritis Take 1 capsule (200 mg) by mouth 2 times daily. 60 capsule 1 5 Active Active Problems Problem Noted Date Diagnosed Date Laceration, eyelid, right, subsequent encounter 05/06/2024 Assessment & Plan (05/06/2024 3:05 PM EDT): Laceration well approximated and healed with some scabs. 7 sutures total on right eyebrow. Sutures removed patient tolerated the removal No redness or pain Wash face gently no scrubbing until all scabs fall off Asymptomatic postmenopausal state 03/03/2024 Right hip pain 12/20/2023 Assessment & Plan (12/20/2023 4:22 PM EDT): Apply heat on affected area Orthopedics referral Flexeril prescription today, patient is aware of side effects Chronic sinusitis 12/20/2023 Mixed stress and urge urinary incontinence 03/02 Chronic pain of left ankle 03/02/2023 Colon cancer screening 03/02/2023 Pain in both feet 03/02/2023 Assessment & Plan (03/02/2023 3:26 PM EDT): Orthopedic/diabetic shoes will be prescribed for patient Chronic pain of both ankles 09/12/2022 Assessment & Plan (12/04/2022 12:02 PM EDT): Do not miss appointment with podiatry Assessment & Plan (09/12/2022 5:28 PM EST): -X-ray reviewed: Osteoarthritis of feet, bunions, and calcaneal spurs. -Multifactorial -Possibly vascular (venous insufficiency), less likely to have diabetic neuropathy since her glycemic control is good and she is not on any medication -Refer to corrections corporal (she may be able to get diabetic footwear) -Trial of capsaicin (she has ASA allergy, so did not risk with diclofenac gel. Pt has taken VILLANUEVA-2 inhibitor) -Consider diclofenac gel if allergic reaction to ASA is tolerable -Advised to complete lab to check any inflammatory etiology -Continue wearing comfortable shoes and stretching exercise -Follow up with PCP in 1 mo for chronic conditions and ankle pain Bilateral swelling of feet and ankles 09/12/2022 Asthma 08/21/2022 Assessment & Plan (09/12/2022 5:19 PM EST): -Most recent exacerbation on 08/21/22, treated with prednisone -Continue Flovent -Continue albuterol HFA and neb prn -Follow up with PCP Acute urinary tract infection 08/20/2022 Chronic cough 08/20/2022 Osteopenia 08/20/2022 Adjustment insomnia 08/20/2022 Primary insomnia 08/20/2022 Skin ulcer 08/20/2022 Supraventricular tachycardia 08/20/2022 Type 2 diabetes mellitus wit hout complication, without long-term current use of insulin 08/20/2022 Assessment & Plan (07/29/2024 4:39 PM EST): Diabetes is: controlled - Lab Results Component Value Date HGBA1C 5.5 07/29/2024 HGBA1C 5.9 12/20/2023 HGBA1C 6.0 12/04/2022 - Lab Results Component Value Date CREATININE 0.64 03/15/2023 -Changes: none - Diabetic eye exam:upcoming appointment - Diabetic foot exam:referral today - Continue lifestyle modifications - Continue current medications - Follow up: 3 months Assessment & Plan (03/03/2024 10:45 AM EDT): Diabetes is: controlled - Lab Results Component Value Date HGBA1C 5.9 12/20/2023 HGBA1C 6.0 12/04/2022 - Lab Results Component Value Date CREATININE 0.64 03/15/2023 -Changes: none - Diabetic eye exam:up to date - Diabetic foot exam:pending - Continue lifestyle modifications - Continue current medications - Follow up: 3 months Assessment & Plan (12/20/2023 4:23 PM EDT): Diabetes is: controlled - Lab Results Component Value Date HGBA1C 5.9 12/20/2023 HGBA1C 6.0 12/04/2022 - Lab Results Component Value Date CREATININE 0.64 03/15/2023 -Changes: none - Diabetic eye exam:pending - Diabetic foot exam:pending - Continue lifestyle modifications - Continue current medications - Follow up: 3 months Assessment & Plan (03/02/2023 3:25 PM EDT): Lab Results Component Value Date HGBA1C 6.0 12/04/2022 - Lab Results Component Value Date CREATININE 0.70 02/10/2021 CREATININE 0.70 02/10/2021 - - Diabetic eye exam: up to date - Diabetic foot exam: up to date - Continue lifestyle modifications Assessment & Plan (12/04/2022 12:01 PM EDT): - Lab Results Component Value Date HGBA1C 6.0 12/04/2022 - Lab Results Component Value Date CREATININE 0.70 02/10/2021 CREATININE 0.70 02/10/2021 - Diabetic eye exam: up to date - Diabetic foot exam: pending - Continue lifestyle modifications - Continue current medications Assessment & Plan (09/12/2022 5:20 PM EST): -Continue managing with lifestyle modifications -Follow up with PCP within 2 mo. Primary osteoarthritis of both knees 12/02/2018 Assessment & Plan (07/29/2024 4:39 PM EST): Grab bars will be prescribe for patient Shoulder pain 12/02/2018 Hyperlipidemia 11/05/2012 Impaired fasting glucose 11/05/2012 Impaired glucose tolerance 11/05/2012 Rupture of anterior cruciate ligament 11/05/2012 Smoker 11/05/2012 Tear of medial meniscus of knee 11/05/2012 Vitamin D deficiency 11/05/2012 Hypertension 08/01/2012 Assessment & Plan (07/29/2024 4:40 PM EST): I went up on her lisinopril to 40mg daily I advised: - Aerobic exercise to reduce BP. Initial goal of 30 min walk 3-5x/week. Increase as tolerated. - low-sodium diet (goal: <2g/day) and heart healthy diet such as DASH to reduce BP and prevent ASCVD. - Home BP monitoring 1-2 x day with goal of <140/90. - Seek immediate medical attention for chest pain, palpitations, SOB, syncope, or sudden changes in mental status. - Do not change or discontinue current prescriptions without first consulting health care provider Assessment & Plan (05/03/2024 10:40 AM EDT): Continue to take your BP medications as prescribed Keep record of your daily BP measurement and bring to next appointment with your PCP Follow up with your PCP for management of your BP Eat healthy diet low fat , more fruits and fruits , vegetables and whole grains Reduce salt intake to under 1500 mg/day Maintain healthy weight Be active, exercise daily for at least 30 minutes Sleep at 8 hours daily Learn how to cope with stress and seek help Assessment & Plan (12/20/2023 4:21 PM EDT): Not controlled I added today amlodipine 5mg daily, c/w lisinopril 20mg daily, c/w low Na diet Assessment & Plan (03/02/2023 3:24 PM EDT): - Aerobic exercise to reduce BP. Initial goal of 30 min walk 3-5x/week. Increase as tolerated. - low-sodium diet (goal: <2g/day) and heart healthy diet such as DASH to reduce BP and prevent ASCVD. - Home BP monitoring 1-2 x day with goal of <140/90. - Seek immediate medical attention for chest pain, palpitations, SOB, syncope, or sudden changes in mental status. - Do not change or discontinue current prescriptions without first consulting health care provider Assessment & Plan (12/04/2022 12:02 PM EDT): - Aerobic exercise to reduce BP. Initial goal of 30 min walk 3-5x/week. Increase as tolerated. - low-sodium diet (goal: <2g/day) and heart healthy diet such as DASH to reduce BP and prevent ASCVD. - Home BP monitoring 1-2 x day with goal of <140/90. - Seek immediate medical attention for chest pain, palpitations, SOB, syncope, or sudden changes in mental status. -I increase her amlodipine to 10mg daily c/w lisinopril 20mg daily return for nurse visit in 2 weeks with log - Do not change or discontinue current prescriptions without first consulting health care provider Allergic rhinitis 03/29/2012 Low back pain 02/19/2012 Resolved Problems Problem Noted Date Diagnosed Date Resolved Date Visit for suture removal 05/03/2024 Assessment & Plan (05/03/2024 12:27 AM EDT): Laceration well approximated and healed with some scabs. 7 sutures total on right eyebrow. Sutures removed patient tolerated the removal No redness or pain Wash face gently until all scabs fall off Encounter for screening mamm ogram for malignant neoplasm of breast 03/03/2024 05/06/2024 Encounter for preventive care 03/03/2024 05/06/2024 Assessment & Plan (03/03/2024 10:46 AM EDT): See HPI Encounter for preventative a dult health care examination 03/02/2023 05/06/2024 Assessment & Plan (03/02/2023 3:25 PM EDT): See HPI Acute exacerbation of chroni c obstructive airways disease 08/20/2022 09/12/2022 Encounters Date Type Department Care Team Description 09/09/2024 Refill [facility] [address] [place] [address] Ronda Marquez MD 07/30/2024 Telephone [facility] [address] [place] [address] Pema Dey [place] Durable Medical Equipment 07/30/2024 Telephone [facility] [address] [place] [address] Ronda Marquez MD 07/29/2024 3:30 PM EST Office Visit [facility] [address] [place] [phone] Ronda Marquez MD Primary hypertension (Primary Dx); Type 2 diabetes mellitus without complication, without long-term current use of insulin ([facility]); Arthritis; Primary osteoarthritis of both knees; Spondylosis of lumbosacral region, unspecified spinal osteoarthritis complication status 07/29/2024 Travel 07/18/2024 Patient Outreach [facility] [address] [place] [phone] Ronda Marquez MD Pre-visit Planning (SDOH screening negative and tobacco screening negative) 06/23/2024 Refill [facility] [address] [place] [phone] Ronda Marquez MD Moderate persistent asthma with exacerbation from Last 3 Months Immunizations Name Administration Dates Next Due Influenza, Split (incl. purified surface antigen ) 11/05/2012 Moderna Covid-19 Vaccine 12+ 10/22/2020,09/25/19 21 Moderna Covid-19 Vaccine 6+ Bivalent 07/04/2022 Pneumococcal Conjugate PCV 20 03/02/2023 Pneumococcal Polysaccharide PPSV23 01/21/2013, Tdap 11/05/2012 Zoster, live 11/05/2012 Social History Tobacco Use Types Packs/Day Years Used Date Smoking Tobacco: Former Cigarettes Passive Smoke Exposure: Past Smokeless Tobacco: Never Tobacco Cessation:Counseling Given: Not Answered Alcohol Use Standard Drinks/Week Comments Never 0 [...] Orientation Straight 05/15/2022 10 :20 AM EDT Last Filed Vital Signs Vital Sign Reading Time Taken Comments Blood Pressure 147/75 07/29/2024 3:22 PM EST Pulse 67 07/29/2024 3:22 PM EST Temperature 35.8 ??C (96.5 ??F) 07/29/2024 3:22 PM ES T Respiratory Rate 18 07/29/2024 3:22 PM EST Oxygen Saturation 99% 05/21/2024 3:02 PM EST Inhaled Oxygen Concentration - - Weight 75.2 kg (165 lb 12.8 oz) 07/29/2024 3:22 PM EST Height 157.5 cm (5' 2 ) 07/29/2024 3:22 PM EST Body Mass Index 30.33 07/29/2024 3:22 PM EST Plan of Treatment Upcoming Encounters Date Type Department Care Team (Late st Contact Info) Description 11/11/2024 10:45 AM EDT Office Visit [facility] [address] [place] [address] Ronda Marquez MD [address] [place] [address] Health Maintenance Due Date Last Done Comments Eye Exam 1955 Hepatitis C Screening 1965 Zoster Vaccines (2 of 3) 12/31/2012 11/05/2012 RSV Patients and Patients Aged 60 years or older (1 - 1-dose 75+ series) 2022 DTaP/Tdap/Td Vaccines (2 - Td or Tdap) 11/05/2022 11/05/2012 Diabetes: Foot Exam 08/21/2023 08/21/2022, 08/21/2022, 08/21/2022 Diabetes: Urine Protein Screening 03/15/2024 03/15/2023, 02/10/2021 Lipid Panel 03/15/2024 03/15/2023, 12/14, 02/10/2021 Influenza Vaccine (#1) 2024 11/05/2012 Diabetes: Hemoglobin A1C 01/26/2025 025, 12/20/2023, 12/04/2022, Additional history exists Alcohol/Substance Use Screening 03/03/2025 03/03/2024 Depression Screening 03/03/2025 03/03/2024, 03/03/20 24 SDOH Screening 07/18/2025 07/18/2024 Tobacco Screening 07/29/2025 07/29/2024 Pneumococcal Vaccine: 50+ Years Completed 03/02/2023, 01/21/2013, 03/25/2012 COVID-19 Vaccine Completed 06/05/2024, , 05/26/2021, Additional history exists HIB Vaccines Aged Out No longer eligi ble based on patient's age to complete this topic HPV Vaccines Aged Out No longer eligi ble based on patient's age to complete this topic Hepatitis A Vaccines Aged Out No long er eligible based on patient's age to complete this topic Hepatitis B Vaccines Aged Out No long er eligible based on patient's age to complete this topic IPV Vaccines Aged Out No longer eligi ble based on patient's age to complete this topic Meningococcal Vaccine Aged Out No carolina merna eligible based on patient's age to complete this topic RSV under 20 months Aged Out No longe r eligible based on patient's age to complete this topic Rotavirus Vaccines Aged Out No longer eligible based on patient's age to complete this topic Procedures Procedure Name Priority Date/Time Associated Diagnosis Comments POCT GLUCOSE Routine 07/29/2024 3:23 PM EST Type 2 diabetes mellitus without complication, without long-term current use of insulin ([facility]) POCT GLYCATED HEMOGLOBIN, TOTAL Routine 07/29/2024 3:23 PM EST Type 2 diabetes mellitus without complication, without long-term current use of insulin ([facility]) LIPID PANEL, STANDARD Routine 03/15/2023 12:48 PM EDT Encounter for preventative adult health care examination CREATININE, RANDOM URINE Routine 03/15/2023 12:00 AM EDT from Last 3 Months or Most Recently Relevant to Health Maintenance Results * POCT HGB A1C (07/29/2024 3:23 PM EST) Hemoglobin A1C 5.5 4.0 - 6.0 % QC Media Lot # [id number] Lot# Expiration Date Blood 07/29/2024 3:23 PM EST Ronda Vallejo MD POINT OF CARE TEST EN TER/EDIT ORDERABLES Final Result * POCT Glucose (07/29/2024 3:23 PM EST) Glucose Blood, POC 101 60 - 200 mg/dL QC Media Lot # [id number] Lot# Expiration Date 650 Blood Capillary blood specimen / Unknown 07/29/2024 3:23 PM EST Ronda Vallejo MD POINT OF CARE TEST EN TER/EDIT ORDERABLES Final Result * Lipid Panel, Standard (03/15/2023 12:48 PM EDT) Triglycerides 141 <150 mg/dL [facility] Comment:Desirable Triglyceri de: less than 150 mg/dLBorderline High Triglyceride 150-199 mg/dLHigh Triglyceride: 200-499 mg/dLVery High Triglyceride: greater than or equal to 5OO mg/dL Cholesterol 150 <200 mg/dL [facility] Comment:Desirable Cholestero l: less than 200 mg/dLBorderline High Cholesterol: 200-239 mg/dLHigh Cholesterol: greater than 239 mg/dL LDL Cholesterol Calculated 74 <100 mg/dL [facility] Comment:Desirable LDL: less than 100 mg/dLNear Optimal/Above Optimal LDL: 110- 129 mg/dLBorderline High LDL: 130-159 mg/dLHigh LDL: 160-189 mg/dLVery High LDL: greater than or equal to 190 mg/dL HDL Cholesterol 48 >40 mg/dL [facility] Comment:Desirable HDL: great er than 40 mg/dL Note: This HDL assay may give artificially low results in patients with liver disease. Blood Venous blood specimen / Unknown 03/15/2023 12:48 PM EDT 03/15/2023 12:48 PM EDT us Ronda Vallejo MD LAB BLOOD ORDERABLES Final Result Performing Organization Address [facility]/ZIP Co de Phone Number [facility] [address] [place] [address] [phone] * Creatinine, Random Urine (03/15/2023 12:00 AM EDT) Creatinine, Urine 92.78 mg/dL [facility] 03/15/2023 03/15/2023 us Ronda Vallejo MD LAB URINE ORDERABLES Final Result Performing Organization Address [facility] Co de Phone Number [facility] [address] [place] [address] [phone] from Last 3 Months or Most Recently Relevant to Health Maintenance Insurance [facility] [address] [place] [id number] Care Teams Product Manager Medical Device Relationship Specialty Start Date End Date Ronda Marquez MD [address] [place] [phone] PCP - General Family Medicine 03/09/22
--- OUTSIDE RECORDS SUMMARY | 2024-09-10 18:50 | XMS_ITS | Patient Health Record ---
Author Organization [facility] Address [address] [facility] [place] [address] Care Team Providers Care Melter Caster Name Role Phone Ronda Marquez Primary Care Provider Roya Addison Peterson Unavailable [phone] Allergies Allergen (clinical drug ingredient) Drug/Non Drug Allergy documented on EMR Reaction Allergy Type Onset Date Status ibuprofen Advil Unknown Drug Allergy Active aspirin Aspirin Unknown Drug Allergy Active Reason For Referral No Information Medications Medication SIG (Take, Route, Frequency, Duration) [...] Wear Daily for as needed 10/16/2023 Active Social History Tobacco Use: Social History [...] 01/01/2024 Encounters Encounter Location Date Provider Diagnosis [facility] [address] [phone] 10/16/2023 Addison Sherley Pain in left foot M79.672 ; Flat foot [pes planus] (acquired), left foot M21.42 ; Posterior tibial tendinitis of left lower extremity M76.822 and Acquired pes planus of right foot M21.41 [facility] [address] [address] 01/01/2024 Addison Sherley Pain in left foot [...] walking (ICD-10 - R26.2) Plan Of Treatment Pending Test Test Name Order Date X ray : Foot, left 3V 05/01/2023 Insurance Providers Payer Name Payer Address Payer Phone Subscriber Number Group Number Insured Name Patient Relationship to Insured Coverage Start Date Coverage End Date [facility] Claims [address] [place] [address] [phone] [id number] Sandra Manning Self - patient is the insured Medical (General) History Medical History History ICD Code CAD Reflux Heart disease/HTN Surgical History Surgery Date(Month/Year) mattress surgery 1993 ovaries surgery 1993
--- OUTSIDE RECORDS SUMMARY | 2024-09-10 18:50 | XMS_ITS | Continuity of Care Document ---
Author Organization [place] [employer] [facility], [place] in - [facility] Address [address] [place] [id number] Care Team Providers Care Atmospheric Physicist Name Role Phone [facility] Referring Provider HIM CCA OTHER Assessment No assessment recorded. Plan of Treatment Reminders Order Date Submit Date Provider Last Modified By Organization Details Last Modified Time Details Appointments None recorded. Lab rapid SARS CoV 2 Ag, QL IA, respiratory specimen 2024 025 [facility], [address] [place] [address], [id number], 17:09:08 rapid flu (A+B) 2024 025 [facility] access hospital, [address] [place] [address], [phone], 5 17:09:25 Referral None recorded. Procedures None recorded. Surgeries None recorded. Imaging None recorded. Medication Orders azithromyci n 500 mg tablet 2024 025 [facility], [address] [place] [address], [id number], 5 11:28:09 azithromyci n 250 mg tablet 2024 025 [facility], [address] [place] [address], [id number], 5 11:53:38 Patient TargetsNo targets recorded. Patient InstructionsNo instructions recorded. Reason for Referral None Reported. Results Created Date Observation Date Name Description Value Unit Range Abnormal Flag Note LastModifiedBy Organization Detail LastModifiedTime Result Notes None recorded. Medical Equipment None Reported. Allergies Allergen ID Allergen Name Allergen Category Reaction Reaction Severity Criticality Documentation Date Start Date Code Code System Note Provider Name and Address Organization Details Recorded Time 3964 aspirin medicatio n Not available Not available Not available 06/18/2023 1191 RxNorm Not Available [facility] - production 4 03:48:43 Medications Name Sig Start Date Stop Date Status Note LastModified by Organization Details LastModified Time celecoxib 200 mg capsule TAKE 1 CAPSULE BY MOUTH TWICE DAILY active Not Available Not Available No t Available cyclobenzapr ine 10 mg tablet TAKE 1 TABLET BY MOUTH THREE TIMES DAILY FOR 10 DAYS active Not Available Not Available Not Available atorvastatin 40 mg tablet TAKE 1 TABLET BY MOUTH AT BEDTIME active Not Available Not Available No t Available albuterol sulfate 2.5 mg/3 mL (0.083 %) solution for nebulization INHALE 1 AMPULE USING A NEBULIZER EVERY 4 HOURS NEEDED FOR WHEEZING active Not Available Not Available No t Available cetirizine 10 mg tablet TAKE 1 TABLET BY MOUTH EVERY DAY active Not Available Not Available No t Available oxybutynin chloride ER 10 mg tablet,exten ded release 24 hr TAKE 1 TABLET BY MOUTH EVERY MORNING. DO NOT BREAK, CRUSH, DISSOLVE OR CHEW. active Not Available Not Available No t Available azithromycin 250 mg tablet TAKE 1 TABLET BY MOUTH EVERY DAY FOR 4 DAYS active Not Available Not Available No t Available polyvinyl alcohol 1.4 % eye drops PLACE 1 DROP IN EACH EYE TWICE DAILY active Not Available Not Available Not Available lisinopril 20 mg tablet TAKE 1 TABLET BY MOUTH EVERY DAY IN THE MORNING active Not Available Not Available No t Available prednisone 20 mg tablet TAKE 2 TABLETS BY MOUTH EVERY DAY FOR 5 DAYS active Not Available Not Available No t Available fexofenadine 180 mg tablet TAKE 1 TABLET BY MOUTH EVERY DAY NEEDED FOR ALLERGIES FOR UP TO 14 DAYS active Not Available Not Available No t Available amlodipine 5 mg tablet TAKE 1 TABLET BY MOUTH EVERY DAY active Not Available Not Available No t Available Sudogest 30 mg tablet TAKE 1 TABLET BY MOUTH EVERY 4 HOURS NEEDED FOR NASAL CONGESTION FOR UP TO 10 DAYS active Not Available Not Available No t Available amlodipine 10 mg tablet TAKE 1 TABLET BY MOUTH EVERY DAY active Not Available Not Available No t Available nitrofuranto in macrocrystal 100 mg capsule TAKE 1 CAPSULE BY MOUTH TWICE DAILY WITH FOOD FOR 10 DAYS active Not Available Not Available No t Available omeprazole 20 mg capsule,cade yed release TAKE 1 CAPSULE BY MOUTH EVERY DAY BEFORE BREAKFAST active Not Available Not Available No t Available montelukast 10 mg tablet TAKE 1 TABLET BY MOUTH EVERY DAY IN THE EVENING active Not Available Not Available No t Available lisinopril 40 mg tablet TAKE 1 TABLET BY MOUTH EVERY DAY active Not Available Not Available No t Available fluticasone propionate 50 mcg/actuatio n nasal spray,suspen willie INSTILL 2 SPRAYS IN EACH NOSTRIL ONCE DAILY active Not Available Not Available N ot Available amoxicillin 875 mg-potassium clavulanate 125 mg tablet TAKE 1 TABLET BY MOUTH TWICE DAILY FOR 10 DAYS active Not Available Not Available No t Available Ventolin HFA 90 mcg/actuatio n aerosol inhaler INHALE 2 PUFFS BY MOUTH EVERY 4 HOURS NEEDED FOR WHEEZING OR SHORTNESS OF BREATH OR FOR COUGH active Not Available Not Available No t Available azithromycin 500 mg tablet Take 1 tablet every day by oral route. 2024 active Not Available Not Available Not Avai lable Mucinex DM 30 mg-600 mg tablet,exten ded release 12 hr TAKE 1 TABLET BY MOUTH THREE TIMES DAILY active Not Available Not Available Not Available Flovent HFA 110 mcg/actuatio n aerosol inhaler INHALE 1 PUFF BY MOUTH TWICE DAILY. RINSE MOUTH AFTER USING. active Not Available Not Available No t Available Cindi-Tussin 100 mg/5 mL oral liquid TAKE 10 ML BY MOUTH THREE TIMES DAILY IN THE MORNING, AT NOON, AND AT BEDTIME NEEDED FOR COUGH active Not Available Not Available No t Available Myrbetriq 25 mg tablet,exten ded release TAKE 1 TABLET BY MOUTH ONCE DAILY active Not Available Not Available No t Available Arnuity Ellipta 100 mcg/actuatio n powder for inhalation INHALE 1 PUFF BY MOUTH EVERY DAY AT THE SAME TIME active Not Available Not Available No t Available Vitals Date Recorded Heart rate Respiratory rate Body temperature Oxygen saturation Oxygen saturation in Arterial blood by Pulse oximetry Systolic blood pressure Diastolic blood pressure Provider Name and Address Organization Details Last Updated DateTime 5 68 /min 18 /min 99.7 [degF] 96 % 96 % 122 mm[Hg] 74 mm[Hg] Not Available [facility] - production 5 11:17:54 Social History None recorded. Functional Status None recorded. Mental Status None recorded. Family History Nothing Reported. Medical History No medical history recorded. Gynecological HistoryNo gynecological history recorded. Obstetrics History GPAL:G 0 P 0 0 0 0 Past Encounters Encounter ID Performer Location Encounter Start Date Encounter Closed Date Diagnosis/Indication Diagnosis SNOMED-CT Code Diagnosis ICD10 Code Diagnosis Note [id number] Marixa Ojeda MD Main - [address] [phone] 08/14/2024 11:17:49 08/14/2024 16:51:09 Acute sinusitis 72420238 J01.90 As noted, we were called to see this patient regarding concerns of sinus congestion . Evaluation in the field was performed by my shellfish shucker colleague, as noted above, I provided real-time direction and supervisio n for this visit. The evaluation revealed 79 yo woman with COPD who reports sinus congestion , headache since Sunday. She has been taking tylenol for acute symptoms as well as chronic medication s and nebulizers for her COPD. She denies dyspnea.Sh e has no hypoxia and lung sounds are clear.She is COVID and Flu (-)In the past a ZPack has worked effectivel y to resolve her symptoms Impression :acute on chronic sinusitis Plan:Azith romycin 500mg now and 250mg x 4 daysContin ue nebulizer treatments and tylenol as needed Dispositio n: We discussed the diagnostic uncertaint y of home visits and the risk associated with this. In this case, the patient and I felt this to be an acceptable and reasonable amount of risk given the benefit of avoiding an ED visit. We discussed the need to seek care urgently/e mergently in the setting of any new or worsening serious symptoms, particular ly changes to consciousn ess, chest pain, dyspnea. Health Concerns Section Related Observation LastModified by Organization Detai ls LastModified Time None Recorded Concern Status LastModified by Organization Details LastModified Time None Recorded Payers Encounter Date Sequence Insurance Name Policy Number Policy Cullen Covered Member ID Cullen Member ID Guarantor Name 08/14/2024 1 [facility] - DOS ON OR AFTER 2022 - DUAL ELIGIBLE - USP OPTIONS AND ONE [employer] (MEDICARE REPLACEMENT/ADV ANTAGE - HMO) Sanrda gale [id number] Sandra Mcnulty ez Notes Date Note Type Note Provider Name and Address Organization Details Recorded Time 08/14/2024 text/html [facility] Nurse Triage Notes (She Albert - RN): Reason For Request: Pt reporting sinusitis and is requesting z-pack and azithromycin>notin g anytime she has this flare up , zpack and azithromycin is her usual treatment Chief Complaints: Common cold symptoms PMH: COPD/Asthma, Hypertension, Diabetes Mellitus Type 2, Asthma PMH Reviewed at 08/14/2024:32 Allergies Reviewed at 08/14/2024 - 10:32 Comments: c/o sinusitis, congested, coughing, headaches, fever since Sunday day 5. No sick contacts. Home Covid test negative. hx of COPD, asthma- no home 02, has home nebulizer and uses daily. 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 All questions answered. Alvin HUNT [employer] Organization Information for Riley Longo [employer] Business Legal Name: [employer]? Address: [address] [place] [address], Hand Tool Lapper: Bogdan Dugan MD [facility] No.: [id number] [employer] POC Test Results from [facility] Long[facility] [employer] Rapid COVID antigen (11:16:21) COVID: + Attachments uploaded as part of this test result can be found under Documents section. Rapid influenza antigen (11:16:22) Flu: - Attachments uploaded as part of this test result can be found under Documents section. .................. .................. .................. .................. .................. .................. .................. ............... Nail Tech Note From Riley Longo: Dispatched to above address for sinusitis/ cold symptoms. On arrival patient 79 y/o F, met SC8 at the door, walking unassisted with normal gait, AOX4, airway patent, speaking in full sentences, good color, in no apparent distress. Patient reports she has had a painful stuffy nose and head ache since Sunday, reports symptoms are consistent with previous episodes of sinusitis, denies additional symptoms. Patients vital signs checked. Secondary assessment, pupils PERRL, airway patent, pain to palpation over sinuses, no JVD, equal chest rise and fall, lungs clear all diamond, abdomen soft non tender, no signs of trauma, good radial pulse, skin pink warm and dry. Covid-19 and Flu test preformed, both negative, results uploaded. [facility] contacted, spoke with Dr. Ojeda, advised of patient complaints and exam findings. [facility] orders 500mg Azithromycin given PO now, will prescribe ABX therapy of sinusitis, recommends follow up with PCP for ongoing symptoms. Patient given 500mg Azithromycin PO, advised of prescription, advised of [facility] recommendations. Patient has no additional questions or concerns at this time. SC8 clear. EOR. .................. .................. .................. .................. .................. .................. .................. ............... [facility] Consulted: Marixa Ojeda .................. .................. .................. .................. .................. .................. .................. ............... Disposition: Ruthann Ojeda MD [address] [facility],[address], [place], [phone], [place] Aviir 08/14/2024 14:49:37 OBGyn Episode No OBEpisode recorded.
--- OUTSIDE RECORDS SUMMARY | 2024-09-10 18:50 | XMS_ITS | Data Portability ---
Author Organization Department of Health and Human Services [facility], [place] - [employer] [employer] Address [address] [place] [phone] Care Team Providers Care Real Estate Appraiser Name Role Phone [facility] Referring Provider HIM [facility] OTHER Assessment Encounter Date Assessment Date Assessment LastModified by Organization Details LastModified Time 06/13/2023 06/13/2023 As noted, we were called to see this patient regarding concerns of sinusitis. Evaluation in the field was performed by my billet inspector colleague, as noted above, I provided real-time direction and supervision for this visit. The evaluation revealed the patient started antibiotics and prednisone less than 48h ago. she is calling because she feels the same- not worse. vitals and exam reassuring- she is sneezing/expect orating/clearin g phlegm without difficulty. Impression: sinusitis under treatment Plan: continue current course of therapy, call [facility] for re-eval if worsening with new fevers or no improvement in another 3+ days. Disposition: We discussed the diagnostic uncertainty of home visits and the risk associated with this. In this case, the patient and I felt this to be an acceptable and reasonable amount of risk given the benefit of avoiding an ED visit. We discussed the need to seek care urgently/emerge ntly in the setting of any new or worsening serious symptoms, particularly dyspnea. [email or web address] Not available 06/13/2023 13:16:25 06/18/2023 06/18/2023 called for sinus pain found 77 juanito with COPD, HTN c/o 2 wks sinus pain/pressure, R ear pain, followed by cough productive green sputum sinus pain b/l equal 06/04 - sx onset 06/11 - rx augmentin and prednisone 06/13 - [facility] visit sinus pain pressure unchanged, cough improved right ear pain now resolved no hearing changes, no throat pain reports last episode sinus infection 7 month prior, resolved with azithromycin ALL: ASA - hives VSS no sinus tenderness #acute sinusitis incomplete improvement complete remaining augmentin add azithro otherwise return to primary team [email or web address] Not available 06/18/2023 17:52:11 Plan of Treatment Reminders Order Date Submit Date Provider Last Modified By Organization Details Last Modified Time Details Appointments None recorded. Lab rapid SARS CoV 2 Ag, QL IA, respiratory specimen 2024 025 [facility], [facility], [address] [place] [address], [id number], 5 17:09:08 rapid flu (A+B) 2024 025 [facility], [facility], [address] [place] [address], [id number], 17:09:25 Referral None recorded. Procedures None recorded. Surgeries None recorded. Imaging None recorded. Medication Orders azithromyci n 500 mg tablet 2024 025 [facility], [address] [place] [address], [id number], 5 11:28:09 azithromyci n 250 mg tablet 2024 025 [facility], [address] [place] [address], [id number], 5 11:53:38 azithromyci n 250 mg tablet 2023 024 [facility], [address] [place] [address], [id number], 4 14:42:06 azithromyci n 250 mg tablet 2023 024 [facility], [address] [place] [address], [id number], 4 16:41:11 azithromyci n 500 mg tablet 2022 023 [facility], [address] [place] [address], [id number], 3 15:57:23 Patient TargetsNo targets recorded. Patient InstructionsNo instructions [...] Available No t Available Vitals Date Recorded Body temperature Body height Oxygen saturation Oxygen saturation in Arterial blood by Pulse oximetry Body weight Respiratory rate Heart rate Systolic blood pressure Diastolic blood pressure Provider Name and Address Organization Details Last Updated DateTime 3 98.1 [degF] 167.64 cm 96 % 96 % 26278.8 g 18 /min 78 /min 134 mm[Hg] 84 mm[Hg] Not Available [facility] - production 3 13:06:00 Date Recorded Respiratory rate Body temperature Heart rate Oxygen saturation Oxygen saturation in Arterial blood by Pulse oximetry Systolic blood pressure Diastolic blood pressure Provider Name and Address Organization Details Last Updated DateTime 3 18 /min 98.5 [degF] 86 /min 95 % 95 % 121 mm[Hg] 79 mm[Hg] Not Available [facility] - production 3 17:32:02 Date Recorded Heart rate Oxygen saturation Oxygen saturation in Arterial blood by Pulse oximetry Respiratory rate Body temperature Systolic blood pressure Diastolic blood pressure Provider Name and Address Organization Details Last Updated DateTime 4 76 /min 98 % 98 % 16 /min 98.5 [degF] 174 mm[Hg] 81 mm[Hg] Not Available [facility] - production 4 13:50:59 Date Recorded Heart rate Respiratory rate Body temperature Oxygen saturation Oxygen saturation in Arterial blood by Pulse oximetry Systolic blood pressure Diastolic blood pressure Provider Name and Address Organization Details Last Updated DateTime 5 68 /min 18 /min 99.7 [degF] 96 % 96 % 122 mm[Hg] 74 mm[Hg] Not Available [facility] - production 5 11:17:54 Social History None recorded. Functional Status None recorded. Mental Status None recorded. Family History Nothing Reported. Medical History No medical history recorded. Gynecological HistoryNo gynecological history recorded. Obstetrics History GPAL:G 0 P 0 0 0 0 Past Encounters Encounter ID Performer Location Encounter Start Date Encounter Closed Date Diagnosis/Indication Diagnosis SNOMED-CT Code Diagnosis ICD10 Code Diagnosis Note [id number] TONY MIRZA MD [facility] [address] [place] [phone] 06/13/2023 13:05:58 06/13/2023 22:31:21 Acute sinusitis 05412379 J01.90 [id number] Yaritza Mcallister MD [facility] - [facility] [address] [place] [phone] 06/18/2023 17:31:59 06/19/2023 09:35:10 Acute sinusitis [id number] J01.90 [id number] Marixa Ojeda MD Main - [facility] [address] [place] [phone] 05/28/2024 13:50:56 05/28/2024 18:29:35 Cough 62839840 R05.9 As noted, we were called to see this patient regarding concerns of cough. Evaluation in the field was performed by my billet inspector colleague, as noted above, I provided real-time direction and supervisio n for this visit. The evaluation revealed 78 yo woman with copd/asthm a, recurrent sinus infections who has had a cough for the last 1-2 weeks.She was seen in walk-in clinic 05/21 and completed 5 days prednisone without improvemen t. She still has sinus pressure, congested cough. She denies dyspnea, fevers.She is using her nebulizer 3-4 times per day, mucinex , zyrtec, singulair, azelastine spray. She has clear lung sounds on exam. Impression :Acute sinusitus Plan:Azith romycin 500mg now and 250 x 4 days Dispositio n: We discussed the diagnostic uncertaint [...] changes to consciousn ess, chest pain, dyspnea. [id number] Marixa Ojeda MD Main - [facility] [address] [place] [phone] 08/14/2024 11:17:49 08/14/2024 16:51:09 Acute sinusitis [id number] J01.90 As noted, we were called to see this patient regarding concerns of sinus congestion . Evaluation in the field was performed by my billet inspector colleague, as noted above, I provided real-time [...] by Organization Details LastModified Time None Recorded Advance Directives Directive None Recorded Payers Encounter Date Sequence Insurance Name Policy Number Policy Cullen Covered Member ID Cullen Member ID Guarantor Name 06/13/2023 1 [employer] - DOS ON OR AFTER 2022 - DUAL ELIGIBLE - NURSING HOME OPTIONS AND ONE CARE (MEDICARE REPLACEMENT/ADV ANTAGE - HMO) Sandra gale [id number] Sandra Mcnulty ez 06/18/2023 1 [employer] - DOS ON OR AFTER 2022 - DUAL ELIGIBLE - NURSING HOME OPTIONS AND ONE CARE (MEDICARE REPLACEMENT/ADV ANTAGE - HMO) Sandra gale [id number] Sandra Mcnulty ez 05/28/2024 1 [employer] - DOS ON OR AFTER 2022 - DUAL ELIGIBLE - NURSING HOME OPTIONS AND ONE CARE (MEDICARE REPLACEMENT/ADV ANTAGE - HMO) Sandra gale [id number] Sandra Mcnulty ez 08/14/2024 1 [employer] - DOS ON OR AFTER 2022 - DUAL ELIGIBLE - NURSING HOME OPTIONS AND ONE CARE (MEDICARE REPLACEMENT/ADV ANTAGE - HMO) Sandra gale [id number] Sandra Mcnulty ez Notes Date Note Type Note Provider Name and Address Organization Details Recorded Time 06/13/2023 text/html HPI: Patient seen at [facility] for symptoms of illness x 1 week. Diagnosed with sinus infection. Placed on Augmentin and Predinisone and patient concerned that she does not feel better. Reports that she has been on Zpack in past with better results. No fever shortness of breath. Was Negative Flu and Covid in ED per patient .................. .................. .................. .................. .................. .................. .................. ............... [facility] Nursing Assessment: Comments: Reviewed. No additional information needed to process visit. Cheryl Soto RN .................. .................. .................. .................. .................. .................. .................. ............... Bottom Ironer Note From Lasha Lassiter: PT caox3 complains of nasal congestion and cough x10 days. Pt seen by PCP Sunday, wasDx sinus infection and prescribed prednisone and bactrim and began taking them 36 hours ago. Pt concerned as she usually gets zithromax and feels better sooner. Pt also complains of headache, but states it's well controlled with tylenol she has on hand. Pt denies difficulty breathing, n/v/d, reports normal intake and elimination. Pt denies chest pain or other. Pt pink warm and dry, secondary exam unremarkable. Lung sounds clear, frequent productive cough noted. Rapid POC covid negative. [facility] advises pt to continue prescriptions, give them a chance to work, and to call back in 3 days if symptoms not improved. Red flags and pt education discussed. .................. .................. .................. .................. .................. .................. .................. ............... Disposition: Fulfilled TONY MIRZA MD [address] [facility],[address], [place], [phone], [employer] 06/13/2023 16:39:15 06/18/2023 text/html [facility] Nursing Assessment: Reason For Request: Mbr is looking for a follow up visit based on no improvements since her last [facility] visit on 06/13/23. Was on Amoxicillin from a previous ED visit and has not improved. Diagnosed with sinus infection. Placed on Augmentin and Predinisone and patient concerned that she does not feel better. Reports that she has been on Zpack in past with better results. No fever shortness of breath. Was Negative Flu and Covid in ED per patient Chief Complaints: URI PMH: COPD/Asthma, Hypertension, Diabetes Allergies: Aspirin Comments: Discussed symptoms with member- having no improvement after 7 days of at 14 day course of abx. Denies feeling worse- no fever or chills. Phlegm is still green. Requesting visit to see if she needs a different abx for a sinus infection. Murali Mcallister MD [address] [facility],[address], [place], [phone], [employer] 06/18/2023 17:52:22 05/28/2024 text/html HPI: Per OV notes on 05/21 Plan: Started on Prednisone 40mg daily for 5 daysAdvised mucinex as neededDuoneb given in the office Advised to cont Inhalers Call returned to Sandra Manning to triage below. Reports continues with cough and congestion. Pt denies any fever. Pt denies any improvement while on prednisone. No wheezing per patient. Still having to use Duoneb BID but pt concerned as has hx of SVT and causes palpitations. Per pt believes needs oral z-steve to resolve sx. Pt advised needs to be re-evaluated. Pt agrees to [facility] referral as unable to come into [facility]. .................. .................. .................. .................. .................. .................. .................. ............... [facility] Nurse Triage Notes (cMkenzie Soto): Chief Complaints: Cough PMH: COPD/Asthma, Hypertension, Diabetes Mellitus Type 2, Asthma Comments: HPI reviewed- NE .................. .................. .................. .................. .................. .................. .................. ............... Bottom Ironer Note From Harpal Swartz: This 78-year-old female with a history including but not limited to COPD, hypertension, diabetes type II requested a visit today to address a possible sinus infection. She tells me that she was seen at the walk-in clinic associated with her primary care office on 05/21/24, was started on a five day prednisone burst and was given Mucinex. PCP provided a follow-up appointment for 06/03/24. Patient is also using azelastine nasal spray, cetirizine and nebs qid. She tells me that it is common for her to get a sinus infection at the change of seasons and is typically treated with a Z steve. She denies chest pain, shortness of breath, dyspnea on exertion, fever, nausea, vomiting, diarrhea. Allergy to aspirin.She presents awake and alert, in no acute distress, speaking full sentences. Vital signs are reasonably stable and she is afebrile. Diffuse sinus tenderness on palpation. Normal oropharynx exam. Lungs are clear throughout auscultation. Abdomen is soft, nontender, nondistended. No lower extremity edema.Patient treated with azithromycin 500 mg PO. I recommended she keep her primary care appointment next week, continue to use her daily medications as prescribed and increase oral hydration. I provided education on additional supportive care and her prescription. I instructed the patient to present to the emergency department for any new or worsening symptoms such as chest pain, severe shortness of breath, high fever, altered mental status. Patient was given the opportunity to ask questions and is agreeable to this plan. .................. .................. .................. .................. .................. .................. .................. ............... [facility] Consulted: Mraixa Ojeda .................. .................. .................. .................. .................. .................. .................. ............... Disposition: Fulfilled Marixa Ojeda MD [address] [facility],[address], [place], [phone], [employer] 05/28/2024 14:43:54 08/14/2024 text/html CRC Nurse Triage Notes (She Albert - GILBERT): Reason For Request: Pt reporting sinusitis and is requesting z-pack and azithromycin>notin g anytime she has this flare up , zpack and azithromycin is her usual treatment Chief Complaints: Common cold symptoms PMH: COPD/Asthma, Hypertension, Diabetes Mellitus Type 2, Asthma PMH Reviewed at 08/14/2024:32 Allergies Reviewed at 08/14/2024:32 Comments: c/o sinusitis, congested, coughing, headaches, fever since Sunday day 5. No sick contacts. Home Covid test negative. hx of COPD, asthma- no home 02, has home nebulizer and uses daily. Pashto speaking member/ utilized parts interpreter. All questions answered. Alvin HUNT Bottom Ironer Organization Information for [employer] TERRY Business Legal Name: [employer]? Address: [address] [place] [id number], Natural Resource Economist: Bogdan Dugan MD CLIA No.: [id number] Bottom Ironer POC Test Results from [employer] Rapid COVID antigen (11:16:21) COVID: + Attachments uploaded as part of this test result can be found under Documents section. Rapid influenza antigen (11:16:22) Flu: - Attachments uploaded as part of this test result can be found under Documents section. .................. .................. .................. .................. .................. .................. .................. ............... Bottom Ironer Note From Riley Longo: Dispatched to above [...] Flu test preformed, both negative, results uploaded. [facility] contacted, spoke with Dr. Ojeda, advised of patient complaints and exam findings. [facility] orders 500mg Azithromycin given PO now, will prescribe ABX therapy of sinusitis, recommends follow up with PCP for ongoing symptoms. Patient given 500mg Azithromycin PO, advised of prescription, advised of [facility] recommendations. Patient has no additional questions or concerns at this time. SC8 clear. [employer]. .................. .................. .................. .................. .................. .................. .................. ............... [facility] Consulted: Marixa Ojeda .................. .................. .................. .................. .................. .................. .................. ............... Disposition: Fulfilled Marixa Ojeda MD [address] [facility],[address], [place], [phone], GIORG[employer] MONTEIRO 08/14/2024 14:49:37 OBGyn Episode No OBEpisode recorded.
--- OUTSIDE RECORDS SUMMARY | 2024-09-10 18:50 | XMS_ITS | Encounter Summary ---
Author Organization [employer] Address [address] [place] [address] [address] [place] [address] Care Team Providers Care Lobster Catcher Name Role Phone Ronda Marquez MD Primary Care Provide r Reason for Visit * Reason Comments Med Refill Encounter Details Date Type Department Care Team ([facility] Contact Info) Description 07/10/2022 Refill [facility] MED [facility] PEDS [address] [place] [address] Aure Darnell ANP [address] [place] [address] Social History Tobacco Use Types Packs/Day Years Used Date Smoking Tobacco: Never Assessed Comments Unknown Sex and Gender Information Value Date Recorded Sex Assigned at Female 05/15/2022 10:20 AM EDT Legal Sex Female 10:20 AM EDT Gender Identity Female 05/15/2022 10:20 AM EDT Sexual Orientation Straight 05/15/2022 10 :20 AM EDT COVID-19 Exposure Response Date Recorded In the last 10 days, have yo u been in contact with someone who was confirmed or suspected to have Coronavirus/COVID-19? No / Unsure 07/03/2022 12:20 PM EST documented as of this encounter Plan of Treatment Upcoming Encounters Date Type Department Care Team ([facility] Contact Info) Description 11/11/2024 10:45 AM EDT Office Visit [facility] MEDICINE [address] [place], [place] [phone] Ronda Marquez MD [address] [place], [place] [phone] documented as of this encounter Visit Diagnoses Not on filedocumented in this encounter Care Teams Lobster Catcher Relationship Specialty Start Date End Date Ronda Marquez MD [address] [place] [phone] PCP - General Family Medicine 03/09/22 documented as of this encounter
== END 2024-09-10 15:59 | disposition home or self-care (01) ==
PROVIDERS: PCP Internal Medicine; Visit Provider Nurse Practitioner Family
DX: N32.89 Other specified disorders of bladder (principal); N39.46 Mixed incontinence; R35.0 Frequency of micturition
CPT/HCPCS: 99214

== ENCOUNTER → 2024-09-10 15:16 | Outpatient (BNVA) | payer OTHER, SELFPAY | PROVIDERS: PCP Internal Medicine; Visit Provider Nurse Practitioner Family | DX: N32.89 Other specified disorders of bladder (principal); N39.46 Mixed incontinence; R35.0 Frequency of micturition | CPT/HCPCS: 99212 ==

== ENCOUNTER 2024-10-10 13:31 | Outpatient (RCR) | payer OTHER, SELFPAY | END 2024-10-23 11:26 | disposition home or self-care (01) | LOC: HO.PT 13:31 | PROVIDERS: PCP Internal Medicine; Visit Provider Internal Medicine | DX: M17.0 Bilateral primary osteoarthritis of knee (principal) | CPT/HCPCS: 97162 ==

== ENCOUNTER → 2024-10-24 12:45 | Outpatient (BNV) | payer OTHER, SELFPAY | PROVIDERS: PCP Internal Medicine; Visit Provider Radiology Diagnostic Radiology | DX: E28.39 Other primary ovarian failure (principal) | CPT/HCPCS: 77080 ==

== ENCOUNTER 2024-10-24 12:53 | Outpatient (REF) | payer OTHER, SELFPAY ==
--- NOTE | ~2024-10-24 | MM_ITS ---
EXAMINATION: DXA BONE DENSITY AXIAL HISTORY: Z78.0 MENOPAUSAL STATE TECHNIQUE: [employer] Dual energy absorptiometry (DEXA) of the lumbar spine, total left hip, and femoral neck was performed. COMPARISON: Comparison is made with the prior examination dated 02/18/2014. FINDINGS: The bone mineral density of the lumbar spine is 1.226 with a T-score of 0.4, and a Z-score of 1.9. This is indicative of normal bone mineral density. This represents a BMD change of 7.1% compared to the prior exam. This is statistically significant. The bone mineral density of the left total hip is 0.844 with a T-score of -1.3, and a Z-score of 0.4. This is indicative of osteopenia.- This represents a BMD change of 9.9% compared to the prior exam. This is statistically significant. The bone mineral density of the left femoral neck is 0.737 with a T-score of -2.2, and a Z-score of -0.3. This is indicative of osteopenia. This represents a BMD change of -13.0% compared to the prior exam. FRACTURE RISK: The FRAX index suggests a ten year probability of major osteoporotic fracture of 8.8%, and of hip fracture 2.5%. MM/XR DEXA axial skeleton IMPRESSION: Based on bone mineral density, and according to World Health Organization (WHO) criteria, the diagnosis is consistent with osteopenia. All bone density values are in grams per centimeter squared (g/cm2). Statistically, 68% of repeat scans fall within 1 SD (+/- 0.010 g/cm2 for AP spine L1-L4) and 1 SD (+/- 0.012 g/cm2 for femur total) FRAX is a trademark of the [employer] [place] for Metabolic Bone Disease, a World Health Organization (WHO) Collaborating Center. Electronically signed by: Elías Chand MD 10/24/2024 02:01 PM EDT
--- OUTSIDE RECORDS SUMMARY | 2024-10-24 13:27 | XMS_ITS | Patient Health Record ---
Author Organization [facility] Address [address] [place] [address] Care Team Providers Care Stamper Blocker Name Role Phone Ronda Marquez Primary Care Provider Ryoa Addison Peterson Unavailable [phone] Allergies Allergen (clinical drug ingredient) Drug/Non Drug [...] 01/01/2024 Encounters Encounter Location Date Provider Diagnosis [facility] [place] [address] [place] [address] 01/01/2024 Addisonemperatriz JaySherley Pain in left foot M79.672 ; Flat [...] Insured Coverage Start Date Coverage End Date [facility] [employer] Claims [address] [place] [phone] [facility] [id number] Sandra Manning Self - patient is the insured Medical (General) History Medical History History ICD Code CAD Reflux Heart disease/HTN Surgical History Surgery Date(Month/Year) mattress surgery 1993 ovaries surgery 1993
--- OUTSIDE RECORDS SUMMARY | 2024-10-24 13:27 | XMS_ITS | Data Portability ---
Author Organization [employer] [facility] [place] [facility] - [facility] Address [address] [place] [address] Care Team Providers Care Precision Instrument Maker Name Role Phone [facility] Referring Provider HIM CCA OTHER Assessment Encounter Date Assessment Date Assessment LastModified by Organization Details LastModified Time 06/13/2023 06/13/2023 As noted, we were called to see this patient regarding concerns of sinusitis. Evaluation in the field was performed by my shopping inspector colleague, as noted above, I provided [...] Ag, QL IA, respiratory specimen [address], [id number] 5 17:09:08 rapid flu (A+B) 2024 025 Replaced by [facility], [address] [place] [address], [id number] 17:09:25 Referral None recorded. Procedures None recorded. Surgeries None recorded. Imaging None recorded. Medication Orders azithromyci n 500 mg tablet 2024 025 [facility], [address] [place] [address], [id number], 5 11:28:09 azithromyci n 250 mg tablet 2024 025 [facility], [address] [place] [address], [id number], 5 11:53:38 azithromyci n 250 mg tablet 2023 024 [facility], [address] [place] [address], [id number], 4 14:42:06 azithromyci n 250 mg tablet 2023 024 [facility], [address] [place] [address], [id number], 4 16:41:11 azithromyci n 500 mg tablet 2022 023 [facility], [address] [place] [address], [id number], 3 15:57:23 Patient TargetsNo targets recorded. Patient [...] [degF] 167.64 cm 96 % 96 % 62761.8 g 18 /min 78 /min 134 mm[Hg] 84 mm[Hg] Not Available [employer] - production 3 13:06:00 Date Recorded Respiratory rate Body temperature Heart rate Oxygen saturation Oxygen saturation in Arterial blood by Pulse oximetry Systolic blood pressure Diastolic blood pressure Provider Name and Address Organization Details Last Updated DateTime 3 18 /min 98.5 [degF] 86 /min 95 % 95 % 121 mm[Hg] 79 mm[Hg] Not Available [employer] - production 3 17:32:02 Date Recorded Heart rate Oxygen saturation Oxygen saturation in Arterial blood by Pulse oximetry Respiratory rate Body temperature Systolic blood pressure Diastolic blood pressure Provider Name and Address Organization Details Last Updated DateTime 4 76 /min 98 % 98 % 16 /min 98.5 [degF] 174 mm[Hg] 81 mm[Hg] Not Available [employer] - 4 13:50:59 Date Recorded Heart rate Respiratory rate Body temperature Oxygen saturation Oxygen saturation in Arterial blood by Pulse oximetry Systolic blood pressure Diastolic blood pressure Provider Name and Address Organization Details Last Updated DateTime 5 68 /min 18 /min 99.7 [degF] 96 % 96 % 122 mm[Hg] 74 mm[Hg] Not Available [employer] - 5 11:17:54 Social History None recorded. Functional Status None recorded. Mental Status None recorded. Family History Nothing Reported. Medical History No medical history recorded. Gynecological HistoryNo gynecological history recorded. Obstetrics History GPAL:G 0 P 0 0 0 0 Past Encounters Encounter ID Performer Location Encounter Start Date Encounter Closed Date Diagnosis/Indication Diagnosis SNOMED-CT Code Diagnosis ICD10 Code Diagnosis Note [id number] TONY MIRZA MD [facility] - [facility] [address] [place] [phone] 06/13/2023 13:05:58 06/13/2023 22:31:21 Acute sinusitis 91347202 J01.90 [id number] Yaritza Mcallister MD [facility] - [facility] [address] [place] [phone] 06/18/2023 17:31:59 06/19/2023 09:35:10 Acute sinusitis 38003958 J01.90 [id number] Marixa Ojeda MD Main - [facility] [address] [place] [phone] 05/28/2024 13:50:56 05/28/2024 18:29:35 Cough 95055431 R05.9 As noted, we were called to see this patient regarding concerns of cough. Evaluation in the field was performed by my shopping inspector colleague, as noted above, I provided [...] changes to consciousn ess, chest pain, dyspnea. [id number] Marixa Ojeda MD [facility] - [facility] [address] [place] [phone] 08/14/2024 11:17:49 08/14/2024 16:51:09 Acute sinusitis [id number] J01.90 As noted, we were called to see this patient regarding concerns of sinus congestion . Evaluation in the field was performed by my shopping inspector colleague, as noted above, I provided [...] COVID and Flu (-)In the past a Alli has worked effectivel y to resolve her [...] Cullen Member ID Guarantor Name 06/13/2023 1 [facility] - DOS ON OR AFTER 2022 - DUAL ELIGIBLE - [facility] OPTIONS AND ONE CARE (MEDICARE REPLACEMENT/ADV ANTAGE - HMO) Sandra gale [id number] Sandra Mcnulty ez 06/18/2023 1 [facility] - DOS ON OR AFTER 2022 - DUAL ELIGIBLE - [facility] OPTIONS AND ONE CARE (MEDICARE REPLACEMENT/ADV ANTAGE - HMO) Sandra gale [id number] Sandra Mcnulty ez 05/28/2024 1 [facility] - DOS ON OR AFTER 2022 - DUAL ELIGIBLE - [facility] OPTIONS AND ONE CARE (MEDICARE REPLACEMENT/ADV ANTAGE - HMO) Sandra gale [id number] Sandra Mcnulty ez 08/14/2024 1 [facility] - DOS ON OR AFTER 2022 - DUAL ELIGIBLE - [facility] OPTIONS AND ONE CARE (MEDICARE REPLACEMENT/ADV ANTAGE - HMO) Sandra gale [id number] Sandra Hamlet ez Notes Date Note Type Note Provider Name and Address Organization Details Recorded Time 06/13/2023 text/html HPI: [place] [facility] [place] for symptoms of illness x 1 week. [...] .................. .................. .................. .................. .................. .................. ............... Warehouse Technician Note From Lasha Lassiter: PT caox3 complains [...] productive cough noted. Rapid POC covid negative. [facility] advises pt to continue prescriptions, give them a chance to work, and to call back in 3 days if symptoms not improved. Red flags and pt education discussed. .................. .................. .................. .................. .................. .................. .................. ............... Disposition: Fulfilled TONY MIRZA MD [address] [facility],[address], [place], [address], [employer] 06/13/2023 16:39:15 06/18/2023 text/html CRC Nursing Assessment: [...] a sinus infection. Murali Mcallister MD [address] [facility],[address], [place], [address], [employer] 06/18/2023 17:52:22 05/28/2024 text/html HPI: Per OV [...] [facility] referral as unable to come into [facility]. .................. .................. .................. .................. .................. .................. .................. ............... CRC Nurse Triage Notes (Mckenzie Soto): Chief Complaints: Cough PMH: COPD/Asthma, Hypertension, Diabetes Mellitus Type 2, Asthma Comments: HPI reviewed- NE .................. .................. .................. .................. .................. .................. .................. ............... Warehouse Technician Note From Harpal Swartz: This 78-year-old female [...] .................. .................. .................. .................. .................. .................. ............... [facility] Consulted: Marixa Ojeda .................. .................. .................. .................. .................. .................. .................. ............... Disposition: Fulfilled Marixa Ojeda MD [address], [place], [address], [facility] [employer] 05/28/2024 14:43:54 08/14/2024 text/html CRC Nurse Triage Notes (She Albert - RN): Reason For Request: Pt reporting sinusitis and is requesting z-pack and azithromycin>notin g anytime she has this flare up , zpack and azithromycin is her usual treatment Chief Complaints: Common cold symptoms PMH: COPD/Asthma, Hypertension, Diabetes Mellitus Type 2, Asthma PMH Reviewed at 08/14/2024 Allergies Reviewed at 08/14/2024: Comments: c/o sinusitis, congested, coughing, headaches, fever since Sunday day 5. No sick contacts. Home Covid test negative. hx of COPD, asthma- no home 02, has home nebulizer and uses daily. Danish speaking member/ utilized interpreter deaf. All questions answered. Alvin HUNT Warehouse Technician Organization Information for [employer] Legal Name: [employer]? Address: [address] [place] [address], Superintendent Maintenance: Bogdan Dugan MD MALACHI No.: [id number] Warehouse Technician POC Test Results from [employer] Rapid COVID antigen (11:16:21) COVID: + Attachments uploaded as part of this test result can be found under Documents section. Rapid influenza antigen (11:16:22) Flu: - Attachments uploaded as part of this test result can be found under Documents section. .................. .................. .................. .................. .................. .................. .................. ............... Warehouse Technician Note From Riley Longo: Dispatched to above [...] Flu test preformed, both negative, results uploaded. [facility] contacted, spoke with Dr. Ojeda, advised of patient complaints and exam findings. [facility] orders 500mg Azithromycin given PO now, will prescribe ABX therapy of sinusitis, recommends follow up with PCP for ongoing symptoms. Patient given 500mg Azithromycin PO, advised of prescription, advised of [facility] recommendations. Patient has no additional questions or concerns at this time. SC8 clear. EOR. .................. .................. .................. .................. .................. .................. .................. ............... [facility] Consulted: Marixa Ojeda .................. .................. .................. .................. .................. .................. .................. ............... Disposition: Fulfilled Marixa Ojeda MD [address] [place] [address],[address], [place], [address], [facility] 08/14/2024 14:49:37 OBGyn Episode No OBEpisode recorded.
--- OUTSIDE RECORDS SUMMARY | 2024-10-24 13:27 | XMS_ITS ---
Author Organization [facility] Address [address] [place] [address] Care Team Providers Care Experimental Mechanic Electrical Name Role Phone Ronda Marquez Primary Care Provider Roya vailable Addison Lepe Unavailable [phone] Encounters Encounter Location Date Provider Diagnosis [address] [address] 11/27/2023 Addison Lepe Plan Of Treatment No Information Progress Notes * Nanci QUIROShDOB: [birth year] (79 yo F)Acc No.[id number]:11/27/2023 Progress Note Patient:Sandra FLANAGAN Provider:Aashish Lepe DPM :1945???Age:78 Y???Sex:Female D ate:11/27/2023 Address:[address] [place] [address] [place], [place] [id number] Pcp:Ronda Vallejo Subjective: * Chief Complaints: * ??? * Medical History:? Objective: * Vitals:? Assessment: Plan: * Treatment: * Images: * The named appointment provid er may or may not be the originator of this progress note, and it is not deemed complete until electronically signed by the appointment provider. Sign off status: Pending * Provider:?Addison Lepe DPM Date:?2023 Generated for Jb reynoso/Alexandr/eTvirginiasmitting on:?10/24/2024 01:27 PM EDT
--- OUTSIDE RECORDS SUMMARY | 2024-10-24 13:27 | XMS_ITS ---
Author Organization [facility]audine [place] Address [address] [facility] [place] [address] Care Team Providers Care Team Leader Surgery Name Role Phone Ronda Marquez Primary Care Provider Roya vailaAddison Paz Unavailable [phone] Allergies Allergen (clinical drug ingredient) Drug/Non Drug [...] 10/16/2023 Encounters Encounter Location Date Provider Diagnosis [facility] [place] [address] [place] [address] 10/16/2023 Addison Lepe Pain in left foot [...] * CHULA ZaneOB: [birth year] (79 yo F)Acc No.[id number]:10/16/2023 Progress Note Patient:?Nanci QUIROSh Provider:?Addison Lepe DPM :1945???Age:78 Y???Sex:Female D ate:10/16/2023 Address:[address] [place], [place] [id number] Pcp:Ronda Vallejo Subjective: * Chief Complaints: * [...] * Medical History:? * [facility] * Hospitalization/Major Diagno stic Procedure:?Denies [...] , Daughter , who serves as , Tower Helper/Candlemaking Laborer , additional Historian , and/who is physically [...] Lepe DPM Date:?2023 Generated for Jb reynoso/Alexandr/eTransmitting on:?10/24/2024 01:26 PM EDT History and Physical Notes * HPI (History [...] , Daughter , who serves as , Tower Helper/Candlemaking Laborer , additional Historian , and/who is physically [...]
--- OUTSIDE RECORDS SUMMARY | 2024-10-24 13:27 | XMS_ITS ---
Author Organization [facility]audine [place] Address [address] [facility] [place] [address] Care Team Providers Care Lining Inserter Name Role Phone Ronda Marquez Primary Care Provider Roya vailaAddison Paz Unavailable [phone] Allergies Allergen (clinical drug ingredient) Drug/Non Drug [...] 01/01/2024 Encounters Encounter Location Date Provider Diagnosis [facility] [place] [address] [place] [address] 01/01/2024 Addison Lepe Pain in left foot [...] * Nanci QUIROShDOB: [birth year] (79 yo F)Acc No.[id number]:01/01/2024 Progress Note Patient:?Sandra QUIROS Provider:?Addison Lepe DPM :1945???Age:78 Y???Sex:Female D ate:01/01/2024 Address:[address] [place] [address] [place] [address] Pcp:Ronda Vallejo Subjective: * Chief Complaints: * [...] Daughter , and Grand-son,?who serves as , Tangled Yarn Spool Straightener/Svp Digital Sales , additional Historian , and/who are physically [...] patient the benefits of AFO use. Rx [place] type hinged ankle AFO Lower Extremity Bracing [...] Lepe DPM Date:?2023 Generated for Jb reynoso/Alexandr/Tony on:?10/24/2024 01:26 PM EDT History and Physical [...] , and Grand-son, who serves as , Tangled Yarn Spool Straightener/Svp Digital Sales , additional Historian , and/who are physically [...]
== END 2024-10-24 12:54 | disposition home or self-care (01) ==
LOC: HO.MAMMO 12:53
PROVIDERS: PCP Internal Medicine; Visit Provider Internal Medicine
DX: Z12.31 Encounter for screening mammogram for malignant neoplasm of breast (principal); Z13.820 Encounter for screening for osteoporosis; Z78.0 Asymptomatic menopausal state
CPT/HCPCS: 77063; 77067; 77080

== ENCOUNTER 2024-10-29 13:54 | Outpatient (REF) | payer OTHER, SELFPAY ==
[2024-10-29 15:55] LABS: Thyroid Stimulating Hormone 0.63 uIU/mL (0.32-4.0)
[2024-10-29 15:59] LABS: Vitamin B12 306 pg/mL (200-900)
--- OUTSIDE RECORDS SUMMARY | 2024-10-29 16:40 | XMS_ITS ---
Author Organization [facility] claudine [place] Address [address] [facility] [place] [address] Care Team Providers Care Superintendent Container Terminal Name Role Phone Ronda Marquez Primary Care Provider Roya vailaAddison Paz Unavailable [phone] Allergies Allergen (clinical drug ingredient) Drug/Non Drug [...] 01/01/2024 Encounters Encounter Location Date Provider Diagnosis [facility] [place] [address] [place] [address] 01/01/2024 Addison Lepe Pain in left foot [...] * Nanci QUIROShDOB: [birth year] (79 yo F)Acc No.[id number]:01/01/2024 Progress Note Patient:?Sandra QUIROS Provider:?Addison Lepe DPM :1945???Age:78 Y???Sex:Female D ate:01/01/2024 Address:[address] [place] [address] [place] [address] Pcp:Ronda Vallejo Subjective: * Chief Complaints: * [...] Cramps/ Resting?admits.?Muscle cramps / walking?admits.?Generalized aches and pains?denies.?Weakness?denies.?Integ.:?Rmaesh?denies.?Scars?denies.?Corns/calluses?denies.?Ingrown nails?denies.?Painful nails?denies.?Open Sores?denies.?Rashes?denies.?Neurologic:?Difficulty sleeping?admits.?Brain disorder?denies.?Numbness?denies.?Balance trouble?denies.?Confusion?denies.?Fainting/blackouts?denies.?Tingling?denies.?Tr emors?denies.? [...] Daughter , and Grand-son,?who serves as , Odd Piece Checker/Public Health Sanitarian Technician , additional Historian , and/who are physically [...] patient the benefits of AFO use. Rx [place] type hinged ankle AFO Lower Extremity Bracing [...] Lepe DPM Date:?2023 Generated for Jb reynoso/Alexandr/Tony on:?10/29/2024 04:40 PM EDT History and Physical Notes * [...] , and Grand-son, who serves as , Odd Piece Checker/Public Health Sanitarian Technician , additional Historian , and/who are physically [...]
--- OUTSIDE RECORDS SUMMARY | 2024-10-29 16:40 | XMS_ITS | Clinical Summary ---
Author Organization [employer] Address [address] [place] [address] 7[address] [place] [address] Care Team Providers Care Assistant Finance Manager Name Role Phone Ronda Marquez MD Primary Care Provide r Allergies Active Allergy Reactions Criticality Noted Date Comments Aspirin 06/21/2016 Medications azelastine (Astelin) 0.1 % nasal sprayIndication s:Allergic rhinitis, unspecified seasonality, unspecified trigger spray 2 spray by intranasal route 2 times every day in each nostril 30 mL 1 07/03/20 22 Active acetaminophen (Tylenol 8 Hour) 650 MG ER tabletIndicatio ns:Other chronic pain Take 1 tablet by mouth every 8 hours as needed. Swallow whole with water. Do not break, crush, dissolve, or chew. 90 tablet 1 08/14/19 23 Active SM Dry Eye Relief 0.2-0.2-1 % solution USE IN EACH EYE THREE TIMES DAILY DIRECTED 06/07/20 22 Active Deep Sea Nasal [place] 0.65 % nasal spray USE 1-2 SPRAYS IN EACH NOSTRIL EVERY 2 TO 3 HOURS NEEDED FOR NASAL CONGESTION 04/26/20 22 Active Capsaicin 0.035 % creamIndication s:Chronic pain of both ankles Apply thin layer to affected area three times daily as needed / Vietnamese label 42.5 g 3 09/12/19 23 Active Blood Pressure Monitoring (Adult Blood Pressure Cuff Lg) kit 1 Device in the morning. 1 kit 11/22/19 23 Active Diclofenac Sodium (Voltaren) 1 % gelIndications: Chronic pain of both ankles Apply on affected area no more than twice a day as needed 30 g 1 12/05/19 23 Active olopatadine (Pataday) 0.2 % ophthalmic solution Administer 1 drop into affected eye(s) in the morning. 2.5 mL 2 01/03/20 23 Active pseudoephedrine (Sudafed) 30 MG tablet Take 1 tablet (30 mg) by mouth every 4 (four) hours if needed for congestion for up to 10 days. 30 tablet 09/11/19 24 Active montelukast (Singulair) 10 MG tabletIndicatio ns:Moderate persistent asthma with exacerbation TAKE 1 TABLET BY MOUTH IN THE EVENING 90 tablet 3 09/14/19 24 Active omeprazole (PriLOSEC) [address] capsuleIndicati ons:Gastroesoph ageal reflux disease, unspecified whether esophagitis present TAKE 1 CAPSULE BY MOUTH BEFORE BREAKFAST 90 capsule 3 09/26/19 24 Active albuterol (2.5 MG/3ML) 0.083% nebulizer solutionIndicat ions:Moderate persistent asthma with exacerbation INHALE 1 AMPULE USING A NEBULIZER EVERY 4 HOURS NEEDED FOR WHEEZING 90 mL 10/17/19 24 Active cyclobenzaprine (Flexeril) 10 MG tabletIndicatio ns:Right hip pain Take 1 tablet (10 mg) by mouth 3 times daily for 10 days. 30 tablet 01/22/20 24 Active fluticasone (Flonase) 50 MCG/ACT nasal spray INSTILL 2 SPRAYS IN EACH NOSTRIL ONCE DAILY 16 g 05/14/20 24 Active fexofenadine (Elizabet) 180 MG tablet Take 1 tablet (180 mg) by mouth if needed each day (Allergies) for up to 14 days. 14 tablet 05/14/20 24 Active Dextromethorpha n-guaiFENesin (Mucinex DM) 30-600 MG tablet sustained-relea se 12 hour Use 1 tab TID 28 tablet 05/21/20 24 Active albuterol (Ventolin HFA) 108 (90 Base) MCG/ACT inhalerIndicati ons:Acute exacerbation of chronic obstructive airways disease (CMS/HCC) INHALE 2 PUFFS BY MOUTH EVERY 4 HOURS NEEDED FOR WHEEZING OR SHORTNESS OF BREATH OR FOR COUGH 18 g 06/09/20 24 Active Arnuity Ellipta 100 MCG/ACT inhalerIndicati ons:Moderate persistent asthma with exacerbation INHALE 1 PUFF BY MOUTH EVERY DAY AT THE SAME TIME 30 each 2 06/24/20 24 Active amLODIPine (Norvasc) 10 MG tabletIndicatio ns:Primary hypertension Take 1 tablet (10 mg) by mouth Once per day. 90 tablet 1 07/29/19 25 026 Active lisinopril 40 MG tabletIndicatio ns:Primary hypertension Take 1 tablet (40 mg) by mouth Once per day. 90 tablet 1 07/29/19 25 026 Active celecoxib (CeleBREX) 200 MG capsuleIndicati ons:Arthritis TAKE 1 CAPSULE BY MOUTH TWICE DAILY 60 capsule 1 09/20/19 25 Active fluticasone (Flonase) 50 MCG/ACT nasal sprayIndication s:Acute non-recurrent maxillary sinusitis Administer 1-2 sprays into each nostril Once per day. Shake gently. Before first use, prime pump. After use, clean tip and replace cap. 16 g 09/23/19 25 026 Active atorvastatin (Lipitor) 40 MG tabletIndicatio ns:Primary hypertension Take 1 tablet (40 mg) by mouth at bedtime. 90 tablet 09/23/19 25 Active cetirizine (ZyrTEC) 10 MG tabletIndicatio ns:Acute non-recurrent maxillary sinusitis Take 1 tablet (10 mg) by mouth Once per day. 30 tablet 2 09/23/19 25 026 Active D3 Super Strength 50 MCG (2000 UT) capsuleIndicati ons:Osteopenia, unspecified location Take 1 capsule (50 mcg) by mouth Once per day. 30 capsule 3 10/30/19 25 Active D3 Super Strength 50 MCG (2000 UT) capsule TAKE 1 CAPSULE BY MOUTH EVERY DAY 06/07/20 22 025 Discontinued(R eorder (will not trigger notification to Pharmacy)) Active Problems Problem Noted Date Diagnosed Date Acute non-recurrent maxillary sinusitis 09/23/19 25 Forgetfulness 09/22/2024 Influenza A 09/22/2024 Laceration, eyelid, right, subsequent encounter 05/06/2024 Assessment [...] is not on any medication -Refer to order takers supervisor (she may be able to get diabetic [...] Encounters Date Type Department Care Team Description 10/29/2024 Telephone [facility] [address] [place] [phone] Angeles Borjas RN Results 10/29/2024 Orders Only [facility] [address] [place] [phone] Ronda Marquez MD Osteopenia, unspecified location (Primary Dx) 09/22/2024 3:15 PM EDT Office Visit [facility] [address] [place] [phone] Ronda Marquez MD Acute non-recurrent maxillary sinusitis (Primary Dx); Impaired glucose tolerance; Primary hypertension; Forgetfulness; Influenza A 09/22/2024 Travel 09/19/[address] [address] Ronda Marquez MD Chart Prep 09/19/2024 Refill [facility] [address] [place] [address] Ronda Marquez MD Arthritis 09/18/2024 Telephone [facility] [address] [place] [phone] Ronda Marquez MD Nurse Triage 09/09/2024 Refill [facility] [address] [place] [address] Ronda Marquez MD from Last 3 Months Immunizations Name Administration [...] is your housing situation today? I have laurotete thompson 07/18/[address] you [...] Sign Reading Time Taken Comments Blood Pressure 121/73 09/22/2024 3:22 PM EDT Pulse 72 09/22/2024 3:22 PM EDT Temperature 36.3 ??C (97.3 ??F) 09/22/2024 3:22 PM ED T Respiratory Rate 19 09/22/2024 3:22 PM EDT Oxygen Saturation 99% 05/21/2024 3:02 PM EST Inhaled Oxygen Concentration - - Weight 73.2 kg (161 lb 6 oz) 09/22/2024 3:22 PM EDT Height 157.5 cm (5' 2 ) 09/22/2024 3:22 PM EDT Body Mass Index 29.52 09/22/2024 3:22 PM EDT Plan of Treatment Upcoming Encounters Date Type Department Care Team (Late st Contact Info) Description 11/11/2024 10:45 AM EDT Office Visit [facility] [address] [place] [address] Ronda Marquez MD [address] [place], [place] [phone] Health Maintenance Due Date Last Done Comments [...] 24 SDOH Screening 07/18/2025 07/18/2024 Tobacco Screening 09/22/2025 09/22/2024 Pneumococcal Vaccine: 50+ Years Completed 03/02/2023, 01/21/2013, [...] Procedure Name Priority Date/Time Associated Diagnosis Comments BD DEXA AXIAL Routine 10/24/2024 1:00 PM EDT Asymptomatic postmenopausal state POCT INFLUENZA A (ID NOW RAPID MOLECULAR) Routine 09/22/2024 3:58 PM EDT Acute non-recurrent maxillary sinusitis Influenza A POCT INFLUENZA B (ID NOW RAPID MOLECULAR) Routine 09/22/2024 3:57 PM EDT Acute non-recurrent maxillary sinusitis Influenza A POCT GLYCATED HEMOGLOBIN, TOTAL Routine 07/29/2024 3:23 PM EST Type 2 diabetes mellitus without complication, without long-term current use of insulin ([facility]) LIPID PANEL, STANDARD Routine 03/15/2023 12:48 PM EDT Encounter for preventative adult health care examination CREATININE, RANDOM URINE Routine 03/15/2023 12:00 AM EDT from Last 3 Months or Most Recently Relevant to Health Maintenance Results * BD DEXA Axial (10/24/2024 1:00 PM EDT) Anatomical Region Laterality Modality Body Radiographic Janki ging 10/24/2024 1:00 PM EDT Narrative 10/24/2024 2:04 PM EDT ? [facility] ? [address] ?[place] [address] ?[phone] ? Mammography Report ? Signed ? Patient: Sandra Arceo ?MR#: [id number] ?? [id number] ? : 1945 ?Acct:[id number] ? Age/Sex: 79 / F ?ADM Date: 10/24/24 ? Loc: HO.MAMMO ? Attending Dr: Ronda Vallejo MD ? Ordering Physician: Ronda Marquez MD ?Results: ? Date of Service: 10/24/24 ?Follow Up: ? Procedure(s): XR DEXA axial skeleton ?? Accession Number(s): [id number] ? cc: Ronda Marquez MD ? EXAMINATION: ??DXA BONE DENSITY AXIAL ? HISTORY: ??Z78.0 MENOPAUSAL STATE ? TECHNIQUE: WhatSalon Dual energy absorptiometry (DEXA) ?? of the lumbar spine, total left hip, and femoral neck was performed. ? COMPARISON: Comparison is made with the prior examination dated ?? 02/18/2014. ? FINDINGS: ? The bone mineral density of the lumbar spine is 1.226 with a T-score of ?? 0.4, and a Z-score of 1.9. This is indicative of normal bone mineral ?? density. ? This represents a BMD change of 7.1% compared to the prior exam. ??This ?? is statistically significant. ? The bone mineral density of the left total hip is 0.844 with a T-score ?? of -1.3, and a Z-score of 0.4. This is indicative of osteopenia.- ? This represents a BMD change of 9.9% compared to the prior exam. ??This ?? is statistically significant. ? The bone mineral density of the left femoral neck is 0.737 with a ?? T-score of -2.2, and a Z-score of -0.3. This is indicative of ?? osteopenia. ? This represents a BMD change of -13.0% compared to the prior exam. ? FRACTURE RISK: ?? The FRAX index suggests a ten year probability of major osteoporotic ?? fracture of 8.8%, and of hip fracture 2.5%. ? MM/XR DEXA axial skeleton ?? IMPRESSION: ?? Based on bone mineral density, and according to World Health ?? Organization (WHO) criteria, the diagnosis is consistent with ?? osteopenia. ? All bone density values are in grams per centimeter squared (g/cm2). ?? Statistically, 68% of repeat scans fall within 1 SD (+/- 0.010 g/cm2 ?? for AP spine L1-L4) and 1 SD (+/- 0.012 g/cm2 for femur total) ?? FRAX is a trademark of the [employer]'s ?? [place] Metabolic Bone Disease, a World Health Organization (WHO) ?? Collaborating Center. ? Electronically signed by: ??Elías Chand MD ??10/24/2024 02:01 PM EDT ?? RP ? Dictated By: ?Elías Chand MD ? Signed By: ?<Electronically signed by Elías Chand MD in OV> ?10/24/24 1401 ? DD/ 1300 ? TD/TT: 10/24/24 1330 ? Nut Sorter: ? Procedure Note Donotuseinterpreter, Image - 10/24/2024 [facility] [address] [place] [address] Mammography Report Signed Patient: Marcellus Arceo#: M [id number] : 1945cct:[id number] Age/Sex: 79 / FADM Date: 10/24/24 Loc: HO.MAMMO Attending Dr: Ronda Vallejo MD Ordering Physician: Rodna Marquezesults: Date of Service: 10/24/24Follow Up: Procedure(s): XR DEXA axial skeleton Accession Number(s): [id number] cc: Ronda Marquez MD EXAMINATION: DXA BONE DENSITY AXIAL HISTORY: Z78.0 MENOPAUSAL STATE TECHNIQUE: WhatSalon Dual energy absorptiometry (DEXA) of the lumbar spine, total left hip, and femoral neck was performed. COMPARISON: Comparison is made with the prior examination dated 02/18/2014. FINDINGS: The bone mineral density of the lumbar spine is 1.226 with a T-score of 0.4, and a Z-score of 1.9. This is indicative of normal bone mineral density. This represents a BMD change of 7.1% compared to the prior exam. This is statistically significant. The bone mineral density of the left total hip is 0.844 with a T-score of -1.3, and a Z-score of 0.4. This is indicative of osteopenia.- This represents a BMD change of 9.9% compared to the prior exam. This is statistically significant. The bone mineral density of the left femoral neck is 0.737 with a T-score of -2.2, and a Z-score of -0.3. This is indicative of osteopenia. This represents a BMD change of -13.0% compared to the prior exam. FRACTURE RISK: The FRAX index suggests a ten year probability of major osteoporotic fracture of 8.8%, and of hip fracture 2.5%. MM/XR DEXA axial skeleton IMPRESSION: Based on bone mineral density, and according to World Health Organization (WHO) criteria, the diagnosis is consistent with osteopenia. All bone density values are in grams per centimeter squared (g/cm2). Statistically, 68% of repeat scans fall within 1 SD (+/- 0.010 g/cm2 for AP spine L1-L4) and 1 SD (+/- 0.012 g/cm2 for femur total) FRAX is a trademark of the [employer]'s [facility] Metabolic Bone Disease, a World Health Organization (WHO) Collaborating Center. Electronically signed by: Elías Chand MD 10/24/2024 02:01 PM EDT RP Dictated By: Elías Chand MD Signed By: <Electronically signed by Elías Chand MD in OV> 10/24/24 1401 DD/ 1300 TD/TT: 10/24/24 1330 Nut Sorter: us Ronda Vallejo MD IMG DXA PROCEDURES Fi nal Result * (ABNORMAL) POCT Rapid Influenza A SHERIDAN ID NOW (09/22/2024 3:58 PM EDT) Influenza A Positive( A) Negative, Indeterminate [facility] QC Media Lot # [id number] [facility] Lot# Expiration Date 6 [facility] Swab 09/22/2024 3:58 PM EDT us Ronda Vallejo MD POINT OF CARE TEST EN TER/EDIT ORDERABLES Final Result [facility] [address] [place] [phone] * POCT Rapid Influenza B SHERIDAN ID NOW (09/22/2024 3:57 PM EDT) Influenza B Negative Negative, Indeterminate [facility] QC Media Lot # [id number] [facility] Lot# Expiration Date [facility] Swab 09/22/2024 3:57 PM EDT Ronda Vallejo MD POINT OF CARE TEST EN TER/EDIT ORDERABLES Final Result [facility] [address] [place] [phone] * POCT HGB A1C (07/29/2024 3:23 PM EST) Hemoglobin A1C 5.5 4.0 - 6.0 % QC Media Lot # [id number] Lot# Expiration Date Blood 07/29/2024 3:23 PM EST us Ronda Vallejo MD POINT OF CARE TEST EN TER/EDIT ORDERABLES Final Result * Lipid Panel, Standard (03/15/2023 12:48 PM EDT) Triglycerides 141 <150 mg/dL [facility] Comment:Desirable Triglyceri de: less than 150 mg/dLBorderline High Triglyceride 150-199 mg/dLHigh Triglyceride: 200-499 mg/dLVery High Triglyceride: greater than or equal to 5OO mg/dL Cholesterol 150 <200 mg/dL [facility] Comment:Desirable Cholestero l: less than 200 mg/dLBorderline High Cholesterol: 200-239 mg/dLHigh Cholesterol: greater than 239 mg/dL LDL Cholesterol Calculated 74 <100 mg/dL [facility] Comment:Desirable LDL: less than 100 mg/dLNear Optimal/Above Optimal LDL: 110- 129 mg/dLBorderline High LDL: 130-159 mg/dLHigh LDL: 160-189 mg/dLVery High LDL: greater than or equal to 190 mg/dL HDL Cholesterol 48 >40 mg/dL [facility] Comment:Desirable HDL: great er than 40 mg/dL Note: This HDL assay may give artificially low results in patients with liver disease. Blood Venous blood specimen / Unknown 03/15/2023 12:48 PM EDT 03/15/2023 12:48 PM EDT Ronda Vallejo MD LAB BLOOD ORDERABLES Final Result Performing Organization Address [facility] Co de Phone Number [facility] [address] [place] [address] [phone] * Creatinine, Random Urine (03/15/2023 12:00 AM EDT) Creatinine, Urine 92.78 mg/dL [facility] 03/15/2023 03/15/2023 us Ronda Vallejo MD LAB URINE ORDERABLES Final Result Performing Organization Address [facility] de Phone Number [facility] [address] [place] [phone] from Last 3 Months or Most Recently Relevant to Health Maintenance Insurance [facility] Care Teams Assistant Finance Manager Relationship Specialty Start Date End Date Ronda Marquez MD [address] [place] [phone] PCP - General Family Medicine 03/09/22
--- OUTSIDE RECORDS SUMMARY | 2024-10-29 16:40 | XMS_ITS ---
Author Organization [facility] claudine [place] Address [address] [facility] [place] [address] Care Team Providers Care Pondman Name Role Phone Ronda Marquez Primary Care Provider Roya vailaAddison Paz Unavailable [phone] Allergies Allergen (clinical drug ingredient) Drug/Non Drug [...] 10/16/2023 Encounters Encounter Location Date Provider Diagnosis [facility] [place] [address] [place] [address] 10/16/2023 Addison Lepe Pain in left foot [...] * CHULA ZaneOB: [birth year] (79 yo F)Acc No.[id number]:10/16/2023 Progress Note Patient:?Nanci QUIROSh Provider:?Addison Lepe DPM :1945???Age:78 Y???Sex:Female D ate:10/16/2023 Address:[address] [place], [place] [phone] Pcp:Ronda Vallejo Subjective: * Chief Complaints: * [...] * Medical History:? * Surgical History:?[facility] * Hospitalization/Major Diagno stic Procedure:?Denies [...] , Daughter , who serves as , Building And Grounds Supervisor/Renovator Machine Operator , additional Historian , and/who is [...] Lepe DPM Date:?2023 Generated for Jb reynoso/Alexandr/eTransmitting on:?10/29/2024 04:40 PM EDT History and Physical [...] , Daughter , who serves as , Building And Grounds Supervisor/Renovator Machine Operator , additional Historian , and/who is [...]
--- OUTSIDE RECORDS SUMMARY | 2024-10-29 16:40 | XMS_ITS | Encounter Summary ---
Author Organization [employer] Address [address] [place] [address] [address], [place] [address] Care Team Providers Care Senior Controller Name Role Phone Ronda Marquez MD Primary Care Provide r Reason for Visit * Reason Onset Date Comments Referral 04/10/2023 Encounter Details Date Type Department Care Team ([facility] st Contact Info) Description 04/10/2023 Telephone [facility] [address] [place] [address] Ronda Marquez MD [address] [place] [address] Referral Social History Tobacco Use Types Packs/Day [...] get help to book urology appt at [facility] . [facility] has called them several timeand left voice message at phone # but does not seem to get a call back. documented in this encounter Plan of Treatment Upcoming Encounters Date Type Department Care Team (Late st Contact Info) Description 11/11/2024 10:45 AM EDT Office Visit [facility] [address] [place] [address] Ronda Marquez MD [address] [place] [address] documented as of this encounter Visit Diagnoses Not on filedocumented in this encounter Additional Health Concerns Assessment Noted Time PHQ-9 Depression Total Score: 4 03/02/20 23 1:46 PM EDT documented as of this encounter Care Teams Senior Controller Relationship Specialty Start Date End Date Ronda Marquez MD [address] [place] [address] [phone] PCP - General Family Medicine 03/09/22 documented as of this encounter
--- OUTSIDE RECORDS SUMMARY | 2024-10-29 16:40 | XMS_ITS | Encounter Summary ---
Author Organization [employer] Address [address] [facility] [address]t [place] [address] Care Team Providers Care Merchandise Support Associate Name Role Phone Ronda Marquez MD Primary Care Provide r Reason for Visit * Reason Comments Med Refill Encounter Details Date Type Department Care Team ([facility] st Contact Info) Description 2023 Refill [facility] [address] [place] [address] Harpal Tobin MD [address] [place] [address] Moderate persistent asthma with exacerbation Social History [...] Description 11/11/2024 10:45 AM EDT Office Visit [facility] [address] [place] [phone] Ronda Marquez MD [address] [place] [address] documented as of this encounter Visit Diagnoses Diagnosis Moderate persistent asthma with exacerbation Unspecified asthma, with exacerbation documented in this encounter Additional Health Concerns Assessment Noted Time PHQ-9 Depression Total Score: 4 03/02/20 23 1:46 PM EDT documented as of this encounter Care Teams Merchandise Support Associate Relationship Specialty Start Date End Date Ronda Marquez MD [address] [place] [phone] PCP - General Family Medicine 03/09/22 documented as of this encounter
--- OUTSIDE RECORDS SUMMARY | 2024-10-29 16:41 | XMS_ITS | Encounter Summary ---
Author Organization [employer] Address [address] [facility] [address]t [place] [address] Care Team Providers Care Dietician Name Role Phone Ronda Marquez MD Primary Care Provide r Encounter Details Date Type Department Care Team ([facility] st Contact Info) Description 10/29/2024 Orders Only [facility] [address] [place] [address] Ronda Marquez MD [address] [place], [place] [phone] Osteopenia, unspecified location (Primary Dx) Social History Tobacco Use Types Packs/Day Years [...] Description 11/11/2024 10:45 AM EDT Office Visit [facility] MED[facility] [address] [place] [address] Ronda Marquez MD [address] [place] [address] documented as of this encounter Visit Diagnoses Diagnosis Osteopenia, unspecified location- Primary documented in this encounter Additional Health Concerns Assessment Noted Time PHQ-9 Depression Total Score: 0 03/03/20 24 9:32 AM EDT documented as of this encounter Care Teams Dietician Relationship Specialty Start Date End Date Ronda Marquez MD [address] [place] [phone] PCP - General Family Medicine 03/09/22 documented as of this encounter
--- OUTSIDE RECORDS SUMMARY | 2024-10-29 16:41 | XMS_ITS | Encounter Summary ---
Author Organization [employer] Address [address] [place] [address] [address]t [place] [address] Care Team Providers Care Mechanical Systems Design Engineer Name Role Phone Ronda Marquez MD Primary Care Provide r Reason for Visit * Reason Comments Med Refill Encounter Details Date Type Department Care Team ([facility] Contact Info) Description 07/10/2022 Refill [facility] [address] [place] [address] Aure Darnell ANP [address] [place] [address] Social History Tobacco Use Types Packs/Day Years [...] Upcoming Encounters Date Type Department Care Team ([facility] Contact Info) Description 11/11/2024 10:45 AM EDT Office Visit [facility] [address] [place], [place] [phone] Ronda Marquez MD [address] [place], [place] [phone] documented as of this encounter Visit Diagnoses Not on filedocumented in this encounter Care Teams Mechanical Systems Design Engineer Relationship Specialty Start Date End Date Ronda Marquez MD [address] [place] [address] [phone] PCP - General Family Medicine 03/09/22 documented as of this encounter
--- OUTSIDE RECORDS SUMMARY | 2024-10-29 16:41 | XMS_ITS | Encounter Summary ---
Author Organization [facility] Address [address] [place] [address] [address], [place] [address] Care Team Providers Care Telephone Operator Name Role Phone Ronda Marquez MD Primary Care Provide r Encounter Details Date Type Department Care Team (Late st Contact Info) Description 06/29/2022 Orders Only [facility] [address] [place] [address] Yuliya Santiago MD [address] [place] [address] Social History Tobacco Use Types Packs/Day Years [...] 11/11/2024 10:45 AM EDT Office Visit [facility] MED[facility] [address] [place], [place] [phone] Ronda Marquez MD [address] [place] [address] documented as of this encounter Visit Diagnoses Not on filedocumented in this encounter Care Teams Telephone Operator Relationship Specialty Start Date End Date Ronda Marquez MD [address] [place] [address] PCP - General Family Medicine 03/09/22 documented as of this encounter
--- OUTSIDE RECORDS SUMMARY | 2024-10-29 16:41 | XMS_ITS | Patient Health Record ---
Author Organization [facility] Address [address] [facility] [place] [address] Care Team Providers Care Greens Planter Name Role Phone Ronda Marquez Primary Care Provider Roya Addison Peterson Unavailable [phone] Allergies Allergen (clinical drug ingredient) Drug/Non Drug [...] 01/01/2024 Encounters Encounter Location Date Provider Diagnosis [facility] [place] [address] [place] [address] 01/01/2024 Addisonemperatriz JaySherley Pain in left foot [...] Insured Coverage Start Date Coverage End Date [facility] [employer] Claims [address] [place] [phone] [facility] [id number] Sandra Manning Self - patient is the insured Medical (General) History Medical History History ICD Code CAD Reflux Heart disease/HTN Surgical History Surgery Date(Month/Year) mattress surgery 1993 ovaries surgery 1993
--- OUTSIDE RECORDS SUMMARY | 2024-10-29 16:41 | XMS_ITS | Encounter Summary ---
Author Organization [email or web address] Address [address] [place] [address] [address] [address] Care Team Providers Care Non Destructive Testing Specialist Name Role Phone Ronda Marquez MD Primary Care Provide r Reason for Visit * Reason Onset Date Comments Results 10/29/2024 Encounter Details Date Type Department Care Team ([facility] st Contact Info) Description 10/29/2024 Telephone [facility] [address] [place] [address] Angeles Borjas RN [address] [place] [address] Results Social History Tobacco Use Types Packs/Day Years [...] encounter Miscellaneous Notes * Telephone Encounter - Angeles Borjas RN - 10/29/2024 10:44 AM EDT TC placed to pt., informed pt. Bone density testing from 10/24/24 showed osteopenia slightly worsened since last test in 2023, advised pt. PCP would like pt. To start vitamin D supplement to ensure absorption of calcium and maintain strength of bones. Also recommended walking/ light weight exercise as tolerated to prevent progression to osteoporosis. Pt. Verbalizes understanding documented in this encounter Plan of Treatment Upcoming Encounters Date Type Department Care Team (Late st Contact Info) Description 11/11/2024 10:45 AM EDT Office Visit [facility] [address] [place] [address] Ronda Marquez MD [address] [place] [address] documented as of this encounter Visit Diagnoses Not on filedocumented in this encounter Additional Health Concerns Assessment Noted Time PHQ-9 Depression Total Score: 0 03/03/20 24 9:32 AM EDT documented as of this encounter Care Teams Non Destructive Testing Specialist Relationship Specialty Start Date End Date Ronda Marquez MD [address] [place] [address] PCP - General Family Medicine 03/09/22 documented as of this encounter
--- OUTSIDE RECORDS SUMMARY | 2024-10-29 16:41 | XMS_ITS ---
Author Organization [facility] Address [address] [place] [address] Care Team Providers Care Plastic Cablemaking Machine Operator Name Role Phone Ronda Marquez Primary Care Provider Roya vailable Addison Lepe Unavailable [phone] Encounters Encounter Location Date Provider Diagnosis [address] [address] 11/27/2023 Addison Lepe Plan Of Treatment No Information Progress Notes * Nanci QUIROShDOB: [birth year] (79 yo F)Acc No.[id number]:11/27/2023 Progress Note Patient:Sandra FLANAGAN Provider:?Addison Lepe DPM :1945???Age:78 Y???Sex:Female D ate:11/27/2023 Address:[address] [place] [address] [place], [place] [id number] Pcp:Ronda Vallejo Subjective: * Chief Complaints: * ??? * Medical History:? Objective: * Vitals:? Assessment: Plan: * Treatment: * Images: * The named appointment provid er may or may not be the originator of this progress note, and it is not deemed complete until electronically signed by the appointment provider. Sign off status: Pending * Provider:?Addison Lepe DPM Date:?2023 Generated for Jb reynoso/Alexandr/eTvirginiasmitting on:?10/29/2024 04:41 PM EDT
--- OUTSIDE RECORDS SUMMARY | 2024-10-29 16:41 | XMS_ITS | Data Portability ---
Author Organization [facility] [place] [facility] Address [address] [place] [address] Care Team Providers Care Plastic Mixer Name Role Phone [facility] Referring Provider HIM CCA OTHER Assessment Encounter Date Assessment Date Assessment LastModified by Organization Details LastModified Time 06/13/2023 06/13/2023 As noted, we were called to see this patient regarding concerns of sinusitis. Evaluation in the field was performed by my floor winder colleague, as noted above, I provided real-time [...] Ag, QL IA, respiratory specimen [address], [phone] 5 17:09:08 rapid flu (A+B) 2024 025 [facility], [address] [place] [address], [id number] 17:09:25 Referral None recorded. Procedures None recorded. Surgeries None recorded. Imaging None recorded. Medication Orders azithromyci n 500 mg tablet 2024 025 [facility], [address] [place] [address], [id number], 5 11:28:09 azithromyci n 250 mg tablet 2024 025 [facility], [address] [place] [address], [id number], 5 11:53:38 azithromyci n 250 mg tablet 2023 024 [facility], [address] [place] [address], [id number], 4 14:42:06 azithromyci n 250 mg tablet 2023 024 [facility], [address] [place] [address], [id number], 4 16:41:11 azithromyci n 500 mg tablet 2022 023 [facility], [address] [place] [address], [id number], 3 15:57:23 Patient TargetsNo targets recorded. Patient [...] [degF] 167.64 cm 96 % 96 % 53696.8 g 18 /min 78 /min 134 mm[Hg] 84 mm[Hg] Not Available [employer] [facility] production 3 13:06:00 Date Recorded Respiratory rate Body temperature Heart rate Oxygen saturation Oxygen saturation in Arterial blood by Pulse oximetry Systolic blood pressure Diastolic blood pressure Provider Name and Address Organization Details Last Updated DateTime 3 18 /min 98.5 [degF] 86 /min 95 % 95 % 121 mm[Hg] 79 mm[Hg] Not Available [employer] - production 3 17:32:02 Date Recorded Heart rate Oxygen saturation Oxygen saturation in Arterial blood by Pulse oximetry Respiratory rate Body temperature Systolic blood pressure Diastolic blood pressure Provider Name and Address Organization Details Last Updated DateTime 4 76 /min 98 % 98 % 16 /min 98.5 [degF] 174 mm[Hg] 81 mm[Hg] Not Available [employer] - 4 13:50:59 Date Recorded Heart rate Respiratory rate Body temperature Oxygen saturation Oxygen saturation in Arterial blood by Pulse oximetry Systolic blood pressure Diastolic blood pressure Provider Name and Address Organization Details Last Updated DateTime 5 68 /min 18 /min 99.7 [degF] 96 % 96 % 122 mm[Hg] 74 mm[Hg] Not Available [employer] [facility] - 5 11:17:54 Social History None recorded. Functional Status None recorded. Mental Status None recorded. Family History Nothing Reported. Medical History No medical history recorded. Gynecological HistoryNo gynecological history recorded. Obstetrics History GPAL:G 0 P 0 0 0 0 Past Encounters Encounter ID Performer Location Encounter Start Date Encounter Closed Date Diagnosis/Indication Diagnosis SNOMED-CT Code Diagnosis ICD10 Code Diagnosis Note [id number] TONY MIRZA MD [facility] [address] [place] [phone] 06/13/2023 13:05:58 06/13/2023 22:31:21 Acute sinusitis 01797610 J01.90 [id number] Yaritza Mcallister MD [facility] [address] [place] [phone] 06/18/2023 17:31:59 06/19/2023 09:35:10 Acute sinusitis [id number] J01.90 [id number] Marixa Ojeda MD [facility] [address] [place] [phone] 05/28/2024 13:50:56 05/28/2024 18:29:35 Cough [id number] R05.9 As noted, we were called to see this patient regarding concerns of cough. Evaluation in the field was performed by my floor winder colleague, as noted above, I provided real-time [...] changes to consciousn ess, chest pain, dyspnea. [id number] Marixa Ojeda MD [facility] [address] [place] [phone] 08/14/2024 11:17:49 08/14/2024 16:51:09 Acute sinusitis [id number] J01.90 As noted, we were called to see this patient regarding concerns of sinus congestion . Evaluation in the field was performed by my floor winder colleague, as noted above, I provided real-time [...] Cullen Member ID Guarantor Name 06/13/2023 1 [facility] - DOS ON OR AFTER 2022 - DUAL ELIGIBLE - DETENTION OPTIONS AND ONE CARE (MEDICARE REPLACEMENT/ADV ANTAGE - HMO) Sandra gale [id number] Sandra Mcnulty ez 06/18/2023 1 [facility] - DOS ON OR AFTER 2022 - DUAL ELIGIBLE - DETENTION OPTIONS AND ONE CARE (MEDICARE REPLACEMENT/ADV ANTAGE - HMO) Sandra gale [id number] Sandra Mcnulty ez 05/28/2024 1 [facility] - DOS ON OR AFTER 2022 - DUAL ELIGIBLE - DETENTION OPTIONS AND ONE CARE (MEDICARE REPLACEMENT/ADV ANTAGE - HMO) Sandra gale [id number] Sandra Mcnulty ez 08/14/2024 1 [facility] - DOS ON OR AFTER 2022 - DUAL ELIGIBLE - DETENTION OPTIONS AND ONE CARE (MEDICARE REPLACEMENT/ADV ANTAGE - HMO) Sandra gale [id number] Sandra Hamlet ez Notes Date Note Type Note Provider Name and Address Organization Details Recorded Time 06/13/2023 text/html HPI: Patient seen at [facility] Sunday for symptoms of illness x [...] .................. .................. .................. .................. .................. .................. ............... Grocery Associate Note From Lasha Lassiter: PT caox3 complains [...] productive cough noted. Rapid POC covid negative. [facility] advises pt to continue prescriptions, give them a chance to work, and to call back in 3 days if symptoms not improved. Red flags and pt education discussed. .................. .................. .................. .................. .................. .................. .................. ............... Disposition: Fulfilled TONY MIRZA MD [address] [facility],[address], [place], [phone], [employer] 06/13/2023 16:39:15 06/18/2023 text/html [facility] Nursing Assessment: [...] a sinus infection. Murali Mcallister MD [address] [facility],[address], [place], [address], [employer] 06/18/2023 17:52:22 05/28/2024 text/html HPI: Per OV [...] [facility] referral as unable to come into [facility]. .................. .................. .................. .................. .................. .................. .................. ............... CRC Nurse Triage Notes (Mckenzie Soto): Chief Complaints: Cough PMH: COPD/Asthma, Hypertension, Diabetes Mellitus Type 2, Asthma Comments: HPI reviewed- NE .................. .................. .................. .................. .................. .................. .................. ............... Grocery Associate Note From Harpal Swartz: This 78-year-old female [...] .................. .................. .................. .................. .................. .................. ............... [facility] Consulted: Marixa Ojeda .................. .................. .................. .................. .................. .................. .................. ............... Disposition: Fulfilled Marixa Ojeda MD [address], [place], [address], [facility] - [employer] 05/28/2024 14:43:54 08/14/2024 text/html CRC Nurse Triage [...] 02, has home nebulizer and uses daily. Amharic speaking member/ utilized planning feeder. All questions answered. Alvin HUNT Grocery Associate Organization Information for [employer] [facility] [employer] Legal Name: [employer]? Address: [address] [place] [address], Bladder Cleaner: Bogdan Dugan MD MALACHI No.: [id number] Grocery Associate POC Test Results from [employer] Rapid COVID antigen (11:16:21) COVID: + Attachments uploaded as part of this test result can be found under Documents section. Rapid influenza antigen (11:16:22) Flu: - Attachments uploaded as part of this test result can be found under Documents section. .................. .................. .................. .................. .................. .................. .................. ............... Grocery Associate Note From Riley Longo: Dispatched to above [...] Flu test preformed, both negative, results uploaded. [facility] contacted, spoke with Dr. Ojeda, advised of patient complaints and exam findings. [facility] orders 500mg Azithromycin given PO now, will prescribe ABX therapy of sinusitis, recommends follow up with PCP for ongoing symptoms. Patient given 500mg Azithromycin PO, advised of prescription, advised of [facility] recommendations. Patient has no additional questions or concerns at this time. SC8 clear. EOR. .................. .................. .................. .................. .................. .................. .................. ............... [facility] Consulted: Marixa Ojeda .................. .................. .................. .................. .................. .................. .................. ............... Disposition: Fulfilled Marixa Ojeda MD [address] [place] [address], [place], [address], [facility] 08/14/2024 14:49:37 OBGyn Episode No OBEpisode recorded.
--- OUTSIDE RECORDS SUMMARY | 2024-10-29 16:41 | XMS_ITS | Encounter Summary ---
Author Organization [employer] Address [address] [place] [address] [address] [place] [address] Care Team Providers Care Area Operations Manager Name Role Phone Ronda Marquez MD Primary Care Provide r Reason for Visit * Reason Comments Med Refill Encounter Details Date Type Department Care Team ([facility] st Contact Info) Description 09/09/2024 Refill [facility] [address] [place] [address] Ronda Marquez MD [address] [place] [address] Social History Tobacco Use Types Packs/Day Years [...] Description 11/11/2024 10:45 AM EDT Office Visit [facility] [address] [place] [address] Ronda Marquez MD [address] [place] [address] documented as of this encounter Visit Diagnoses Not on filedocumented in this encounter Additional Health Concerns Assessment Noted Time PHQ-9 Depression Total Score: 0 03/03/20 24 9:32 AM EDT documented as of this encounter Care Teams Area Operations Manager Relationship Specialty Start Date End Date Ronda Marquez MD [address] [place] [address] PCP - General Family Medicine 03/09/22 documented as of this encounter
== END 2024-10-29 13:55 | disposition home or self-care (01) ==
LOC: HO.LAB 13:54
PROVIDERS: PCP Internal Medicine; Visit Provider Psychiatry & Neurology Neurology
DX: G31.84 Mild cognitive impairment of uncertain or unknown etiology (principal)
CPT/HCPCS: 82233; 82234; 82607; 84393; 84443

== ENCOUNTER 2024-12-11 14:31 | Outpatient (AMB) | payer OTHER, SELFPAY ==
--- OUTSIDE RECORDS SUMMARY | 2024-12-11 14:39 | XMS_ITS | Encounter Summary ---
Author Organization [employer] Address [address] [place] [address] Care Team Providers Care Office Support Associate Name Role Phone Ronda Marquez MD Primary Care Provide r Reason for Visit * Reason Onset Date Comments Referral 04/10/2023 Encounter Details Date Type Department Care Team ([facility] st Contact Info) Description 04/10/2023 Telephone [facility] [address] [place] [address] Ronda Marquez MD [address] [place] [address] Referral Social History Tobacco Use Types Packs/Day [...] get help to book urology appt at [facility] them several timeand left voice message at phone # but does not seem to get a call back. documented in this encounter Plan of Treatment Upcoming Encounters Date Type Department Care Team (Late st Contact Info) Description 03/12/2025 9:00 AM EDT Office Visit [facility] [address] [place] [address] Ronda Marquez MD [address] [place] [address] documented as of this encounter Visit Diagnoses Not on filedocumented in this encounter Additional Health Concerns Assessment Noted Time PHQ-9 Depression Total Score: 4 03/02/20 23 1:46 PM EDT documented as of this encounter Care Teams Office Support Associate Relationship Specialty Start Date End Date Ronda Marquez MD [address] [place] [phone] PCP - General Family Medicine 03/09/22 documented as of this encounter
--- NOTE | 2024-12-11 15:25 | A.OFFVIS_ITS ---
Intake Visit Reasons: 3m/PVR Intake Note: Patient presents today for follow up on: incontince, frequency, and uti Urology Medication: Gemtesa Antibiotic Allergy:NONE Blood Thinner:NONE PVR: 34ml's County Assessor Required: Yes County Assessor Services: County Assessor Present County Assessor Name: lavern [id number] Accompanied by: Self / Same As Patient Allergies ENVIROMENTAL Allergy (Unknown, Uncoded 12/11/24 16:43) RHINITIS environmental Allergy (Unknown, Uncoded 12/11/24 16:43) Unknown Medication List - Last Reconciled 12/11/24 by RAN Kemp albuterol sulfate 90 mcg/actuation (Ventolin HFA) inhalation amlodipine 5 mg PO DAILY atorvastatin 40 mg PO DAILY azithromycin 250 mg PO DIRECTED celecoxib 200 mg PO DAILY cetirizine 10 mg PO DAILY cyclobenzaprine 10 mg PO TID fluticasone propionate 50 mcg/actuation sprays intranasal lisinopril 20 mg PO DAILY montelukast 10 mg PO DAILY omeprazole 20 mg PO DAILY pseudoephedrine HCl (Sudogest) 30 mg PO Q4-6H vibegron (Gemtesa) 75 mg PO DAILY 90 days HPI Comments Details: Evelyn is a very pleasant 79-year-old [place]-speaking female patient of Dr. Radha Vallejo. She has a past medical history of SVT and hypertension. She presents to the office today for follow-up of her lower urinary tract symptoms. In discussion with the patient today she reports to be doing and feeling well. She reports significant improvement in lower urinary tract symptoms of urinary frequency and urgency she has been experiencing with 75 mg of Gemtesa daily. She has previously trialed oxybutynin and Myrbetriq with no improvement in these irritative lower urinary tract symptoms. Previous workup has included a retroperitoneal ultrasound 06/08 noting bilateral kidneys with no calculi, lesions, and or hydronephrosis. Pre void bladder volume is proximally 260 mL. Postvoid bladder volume is a proximally 25 mL. Bladder wall slightly trabeculated measuring a proximally 0.8 cm. She continues to also report report episodes of mixed urinary incontinence however feels episodes of urinary urgency and frequency are more bothersome to her. She reports the use of her Barb pads have decreased to approximately 2 times per day whereas prior she had been utilizing 4-6 Barb pads per day. She discusses her longstanding history of bladder issues and has previously had bladder surgery at [facility] however is unsure as to exactly what procedure she had 6 years ago. In office urinalysis results reviewed with the patient today. Microscopic hematuria noted. When asked she denies any previous history of nicotine dependence and or workplace chemical exposure. PVR 34ml's. We discussed at length potential causes of lower urinary tract symptoms patient was experiencing as well as further treatment options and risks and benefits of these treatment options. She otherwise denies flank pain, fever, and or chills. She offers no other issues or concerns at this time. [facility] Medical History SVT (supraventricular tachycardia) HTN (hypertension) Surgical History H/O prior ablation treatment (~01/2020) History of hysterectomy Hx of tubal ligation Family History Father No problems noted. Mother No problems noted. Social History Alcohol intake: never Patient Tobacco Use Status: Never used Tobacco Current occupational status: disabled Review of Systems Const All systems reviewed & are unremarkable except as noted in HPI and below Physical Exam Const General: cooperative, healthy appearing, comfortable, no acute distress, well developed, alert and awake Orientation/consciousness: patient oriented x3 Limitations: language barrier HEENT Head: Yes normal to inspection, Yes normocephalic and Yes atraumatic Ears: hearing grossly normal bilaterally Eyes General: appearance normal, both eyes and all related structures Neck Neck: Yes normal visual inspection and Yes trachea midline Chest Chest palpation & inspection: normal inspection of the chest Resp Effort & Inspection: normal respiratory effort and able to speak in complete sentences Cardio Rate: regular rate GI Inspection: Yes normal to inspection General: Yes no CVA tenderness Back/Spine/Pelvis Back: no CVA tenderness Skin General skin exam: no rashes or lesions noted Neuro General: patient oriented x3 Extrem General: Yes normal to inspection Psych Appearance: grossly normal and well kempt Mental Status: mental status grossly normal Speech and movement: Normal speech and movement present and Clear speech present Affect: normal affect Attitude: cooperative Thought process: Normal thought process present Thought content: Normal thought content present Insight: Fair insight present (Psych) Judgement: Fair judgement present (Psych) Office Procedures Post Void Residual Post Residual Void Post Void Residual (PVR): 34 40782-[id number] Void Residual by ultrasound Results AMB Urinalysis, Automated UA Leukoctes 0 Galina/uL Last Edit by [employer] on 12/11/24 16:22 UA Nitrite Last Edit by [employer] on 12/11/24 16:22 UA Urobilinogen 0.2 mg/dL Last Edit by [employer] on 12/11/24 16:22 UA Protein 0 mg/dL Last Edit by [employer] on 12/11/24 16:22 UA pH 6.0 Last Edit by [employer] on 12/11/24 16:22 UA Blood 80 Darron/uL Last Edit by [employer] on 12/11/24 16:22 UA Specific Early 1.005 Last Edit by [employer] on 12/11/24 16:22 UA Ketone Last Edit by [employer] on 12/11/24 16:22 UA Bilirubin 0 mg/dL Last Edit by [employer] on 12/11/24 16:22 UA Glucose 0 mg/dL Last Edit by [employer] on 12/11/24 16:22 Results Reviewed Results Reviewed: Laboratory Last Values Urine pH (Auto) 6.0 12/11/24 16:20 Specific Early (Auto) 1.005 12/11/24 16:20 Urine Protein (Auto) 0 mg/dL 12/11/24 16:20 Glucose (UA)(Auto) 0 mg/dL 12/11/24 16:20 Urine Blood (Auto) 80 Darron/uL 12/11/24 16:20 Urine Bilirubin (Auto) 0 mg/dL 12/11/24 16:20 Urine Urobilinogen (Auto) 0.2 mg/dL 12/11/24 16:20 Leukocyte Esterase (Auto) 0 Galina/uL 12/11/24 16:20 Assessment & Plan Assessment & Plan (1) Bladder trabeculation: Code(s): N32.89 - Other specified disorders of bladder Category: Medical (2) Mixed stress and urge urinary incontinence: Code(s): N39.46 - Mixed incontinence Category: Medical (3) Microscopic hematuria: Code(s): R31.29 - Other microscopic hematuria Category: Medical Plan In office urinalysis results reviewed the patient today; as noted above; will send for urine cytology PVR 34 mL. She reports be happy with current voiding parameters on 75 mg of Gemtesa; will continue; prescription provided. She currently denies any bothersome urinary issues or concerns. Will continue with surveillance monitoring. All questions were answered. Follow-up in 6 months with PVR; or sooner with any issues, concerns, and or questions. Orders: Orders AMB Post Void Residual by ultrasound Today N39.46 - Mixed incontinence AMB Urinalysis Automated Today Z13.9 - Encounter for screening, unspecified Medications: Changed From vibegron (Gemtesa) 75 mg PO DAILY 30 days 30 tabs 3RF N32.81 - Overactive bladder To vibegron (Gemtesa) 75 mg PO DAILY 90 tabs 3RF 90 days N32.81 - Overactive bladder Patient Instructions: The patient had an opportunity to ask questions regarding the treatment plan. All questions were answered. Physical exam, labs, and imaging were discussed and reviewed in detail. As well as risks, benefits, and discussion of treatment choices. No major barriers to understanding were identified. The patient expressed understanding and agreement with the above treatment plan. The patient was made aware they should contact our office by phone for worsening of their current condition, the appearance of new symptoms, or with any questions or concerns. Compliance is encouraged with any medications and follow up testing that is ordered. It is a privilege to be allowed the opportunity to participate in? your urological care.? Again, if you have any questions or concerns If you have any questions or concerns please do not hesitate to contact me. The office is [phone]. This note is constructed using voice recognition software. While every effort has been made to ensure accuracy cnc grinder errors may have been included. Yours sincerely, RAN Kemp Coding Level of Care Code Est Pt Level 3 (27910) Complex EM visit Add On G2211 Diagnoses Bladder trabeculation N32.89 Mixed stress and urge urinary incontinence N39.46 Microscopic hematuria R31.29 CPT Codes Post Residual Void - PVR CPT Code: 44391-Uuwb Void Residual by ultrasound ([id number])
== END 2024-12-11 16:00 | disposition home or self-care (01) ==
LOC: HO.HUSH 14:32
PROVIDERS: PCP Internal Medicine; Visit Provider Nurse Practitioner Family
DX: N32.89 Other specified disorders of bladder (principal); N39.46 Mixed incontinence; R31.29 Other microscopic hematuria; Z13.9 Encounter for screening, unspecified
CPT/HCPCS: 99213; G2211

== ENCOUNTER 2024-12-11 14:31 | Outpatient (REF) | payer OTHER, SELFPAY ==
[2024-12-11 17:02] LABS: Urine Cytology See Pathology rpt
== END 2024-12-11 14:32 | disposition home or self-care (01) ==
LOC: HO.LNP 14:31
PROVIDERS: PCP Internal Medicine; Visit Provider Nurse Practitioner Family
DX: R31.29 Other microscopic hematuria (principal); N39.46 Mixed incontinence; N32.89 Other specified disorders of bladder
CPT/HCPCS: 51798; 81003; 88112; 99212

== ENCOUNTER 2025-04-02 10:45 | Outpatient (REF) | payer OTHER, SELFPAY ==
--- NOTE | ~2025-04-02 | MM_ITS ---
EXAMINATION: MM DIAGNOSTIC DIGITAL BREAST TOMOSYNTHESIS, LEFT Limited left ultrasound. CLINICAL INFORMATION: Palpable left breast lump for one month with pain. Patient had diagnostic mammography [place] which was benign. COMPARISON: Mammography: [facility] on PACS. TECHNIQUE: Digital breast tomosynthesis is performed in both the craniocaudal and mediolateral oblique views along with computer-aided detection (CAD). Synthesized 2D images are generated from the tomosynthesis. FINDINGS: There are scattered areas of fibroglandular density (ACR BI-RADS breast composition Category b). BB marker in the upper central breast anterior depth without underlying abnormal finding. There is subtle increased tissue density in the lower inner breast anterior depth which could just represent overlapping breast tissue. No suspicious calcifications or other abnormal findings. Targeted color Doppler ultrasound scanning in the area the patient's palpable lump and retroareolar region including the lower inner breast retroareolar region demonstrates normal fibroglandular breast tissue there are a few ectatic normal-appearing ducts. MM/MM tomosynthesis diagnostic LT IMPRESSION: Left: 1. No mammographic or sonographic abnormal finding to account for the patient's palpable lump and pain. Recommend clinical evaluation follow-up. 2. Increased subtle tissue density lower inner breast anterior depth which could just represent overlapping breast tissue and without sonographic correlate. Recommend 6 month follow-up mammogram for further evaluation of stability. 3. Breast MRI could be considered for further evaluation. Breast MRI would need to be ordered by the patient's providing clinician. ASSESSMENT: BI-RADS BI-RADS 3 - Probably benign finding(s) - 6 month follow-up suggested RECOMMENDATION: 6 Month F/U Results were provided to the patient at time of visit by the technologist. This patient's information was entered into a reminder system with a target due date for their next mammogram. Electronically signed by: Elayne Sierra DO 04/02/2025 12:31 PM EDT
--- OUTSIDE RECORDS SUMMARY | 2025-04-02 12:53 | XMS_ITS | Clinical Summary ---
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 Name Role Phone Ronda Marquez MD Primary Care Provide r Allergies Active Allergy Reactions Criticality Noted Date Comments Aspirin 06/21/2016 Medications azelastine (Astelin) 0.1 % nasal sprayIndication s:Allergic rhinitis, unspecified seasonality, unspecified trigger spray 2 spray by intranasal route 2 times every day in each nostril 30 mL 1 07/03/20 22 Active SM Dry Eye Relief 0.2-0.2-1 % solution USE IN EACH EYE THREE TIMES DAILY DIRECTED 06/07/20 22 Active Deep Sea Nasal [place] 0.65 % nasal spray USE 1-2 SPRAYS IN EACH NOSTRIL EVERY 2 TO 3 HOURS NEEDED FOR NASAL CONGESTION 04/26/20 22 Active Capsaicin 0.035 % creamIndication s:Chronic pain of both ankles Apply thin layer to affected area three times daily as needed / Persian label 42.5 g 3 09/12/19 23 Active [...] 10 days. 30 tablet 09/11/19 24 Active albuterol (2.5 MG/3ML) 0.083% nebulizer solutionIndicat ions:Moderate persistent asthma with exacerbation INHALE 1 AMPULE USING A NEBULIZER EVERY 4 HOURS NEEDED FOR WHEEZING 90 mL 10/17/19 24 Active cyclobenzaprine (Flexeril) 10 MG tabletIndicatio ns:Right hip pain Take 1 tablet (10 mg) by mouth 3 times daily for 10 days. 30 tablet 01/22/20 24 Active fexofenadine (Elizabet) 180 MG tablet [...] FOR COUGH 18 g 06/09/20 24 Active celecoxib (CeleBREX) 200 MG capsuleIndicati ons:Arthritis TAKE 1 CAPSULE BY MOUTH TWICE DAILY 60 capsule 1 09/20/19 25 Active fluticasone (Flonase) 50 MCG/ACT nasal sprayIndication s:Acute non-recurrent maxillary sinusitis Administer 1-2 sprays into each nostril Once per day. Shake gently. Before first use, prime pump. After use, clean tip and replace cap. 16 g 09/23/19 25 026 Active D3 Super Strength 50 MCG (2000 UT) capsuleIndicati ons:Osteopenia, unspecified location Take 1 capsule (50 mcg) by mouth Once per day. 30 capsule 3 10/30/19 25 Active Arnuity Ellipta 100 MCG/ACT inhalerIndicati ons:Moderate persistent asthma with exacerbation INHALE 1 PUFF BY MOUTH EVERY DAY AT THE SAME TIME 30 each 2 11/08/19 25 Active loratadine-pseu doephedrine ER (Claritin-D 24 Hour) 10-240 MG 24 hr tabletIndicatio ns:Allergic rhinitis, unspecified seasonality, unspecified trigger Take 1 tablet by mouth Once per day. Do not crush, chew, or split. 10 tablet 11/12/19 25 026 Active FREESTYLE LITE test stripIndication s:Type 2 diabetes mellitus without complication, without long-term current use of insulin ([facility]) Use to test blood sugar 1 times daily 100 each 12 11/12/19 25 026 Active Lancets miscIndications :Type 2 diabetes mellitus without complication, without long-term current use of insulin ([facility]) Use to test blood sugar 1 times daily 100 each 11/12/19 25 Active Alcohol Swabs 70 % padsIndications :Type 2 diabetes mellitus without complication, without long-term current use of insulin ([facility]) Use to test blood sugar 1 times daily 100 each 11/12/19 25 Active Blood Glucose Monitoring Suppl (FreeStyle Bloxom Lite) w/Device kitIndications: Type 2 diabetes mellitus without complication, without long-term current use of insulin ([facility]) Use to test blood sugar 1 times daily 1 kit 11/12/19 25 Active montelukast (Singulair) 10 MG tabletIndicatio ns:Moderate persistent asthma with exacerbation TAKE 1 TABLET BY MOUTH EVERY DAY IN THE EVENING 90 tablet 3 11/20/19 25 Active omeprazole (PriLOSEC) [address] capsuleIndicati ons:Gastroesoph ageal reflux disease, unspecified whether esophagitis present TAKE 1 CAPSULE BY MOUTH EVERY DAY BEFORE BREAKFAST 90 capsule 3 12/03/19 25 Active fluticasone (Flonase) 50 MCG/ACT nasal spray INSTILL 2 SPRAYS IN EACH NOSTRIL ONCE DAILY 16 g 2 01/01/20 25 Active acetaminophen (Tylenol 8 Hour) 650 MG ER tabletIndicatio ns:Other chronic pain Take 1 tablet by mouth every 8 hours as needed. Swallow whole with water. Do not break, crush, dissolve, or chew. 90 tablet 1 01/01/20 25 Active cetirizine (ZyrTEC) 10 MG tabletIndicatio ns:Acute non-recurrent maxillary sinusitis TAKE 1 TABLET BY MOUTH EVERY DAY 30 tablet 2 01/23/20 25 Active atorvastatin (Lipitor) 40 MG tabletIndicatio ns:Primary hypertension TAKE 1 TABLET BY MOUTH AT BEDTIME 90 tablet 01/30/20 25 Active lisinopril 40 MG tabletIndicatio ns:Primary hypertension Take 1 tablet (40 mg) by mouth Once per day. 90 tablet 1 01/30/20 25 026 Active amLODIPine (Norvasc) 10 MG tabletIndicatio ns:Primary hypertension Take 1 tablet (10 mg) by mouth Once per day. 90 tablet 1 03/12/20 25 Active melatonin 5 MG tabletIndicatio ns:Primary insomnia Take 1 tablet (5 mg) by mouth at bedtime. 90 tablet 1 03/12/20 25 Active melatonin 5 MG tabletIndicatio ns:Primary insomnia Take 1 tablet (5 mg) by mouth at bedtime. 90 tablet 1 11/12/19 25 025 Discontinued(R eorder (will not trigger notification to Pharmacy)) amLODIPine (Norvasc) 10 MG tabletIndicatio ns:Primary hypertension TAKE 1 TABLET BY MOUTH EVERY DAY 90 tablet 1 02/04/20 25 025 Discontinued(R eorder (will not trigger notification to Pharmacy)) ciprofloxacin-d exAMETHasone (CiproDEX) otic suspensionIndic ations:Otitis of right ear Administer 4 drops into affected ear(s) 2 times daily for 7 days. 7.5 mL 03/12/20 25 025 zoster vaccine-recombi nant adjuvanted (Shingrix) 50 MCG/0.5ML vaccineIndicati ons:Type 2 diabetes mellitus without complication, without long-term current use of insulin ([facility]) Inject 0.5 mL (50 mcg) into the muscle 1 (one) time for 1 dose. 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 (she may be able to get diabetic [...] 08/20/2022 Adjustment insomnia 08/20/2022 Primary insomnia 08/20/2022 Assessment & Plan (11/11/2024 11:34 AM EDT): Sleep hygiene counseling done Melatonin 5 mg at bedtime prescribed Skin ulcer 08/20/2022 Supraventricular tachycardia 08/20/2022 Type 2 diabetes mellitus wit hout complication, without long-term current use of insulin 08/20/2022 Assessment & Plan (03/12/2025 10:01 AM EDT): Diabetes is: controlled - Lab Results Component Value Date HGBA1C 5.6 03/12/2025 HGBA1C 5.3 11/11/2024 HGBA1C 5.5 07/29/2024 - Lab Results Component Value Date CREATININE 0.64 03/15/2023 -Changes: none - Diabetic eye exam:up to date - Diabetic foot exam:referral - Continue lifestyle modifications - Continue current medications - Patient's A1c has been now consistently under 6, she is no longer diabetic I will follow-up with her again in 3 months Assessment & Plan (11/11/2024 11:35 AM EDT): Diabetes is: controlled - Lab Results Component Value Date HGBA1C 5.3 11/11/2024 HGBA1C 5.5 07/29/2024 HGBA1C 5.9 12/20/2023 - Lab Results Component Value Date CREATININE 0.64 03/15/2023 -Changes: None - Diabetic eye exam: Up-to-date - Diabetic foot exam: Up-to-date - Continue lifestyle modifications - Continue current medications - f/u 4 months Assessment & Plan (07/29/2024 4:39 PM EST): [...] deficiency 11/05/2012 Hypertension 08/01/2012 Assessment & Plan (03/12/2025 10:00 AM EDT): I advised: - Aerobic exercise to reduce [...] consulting health care 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 Assessment & Plan (11/11/2024 11:34 AM EDT): I advised: - Aerobic exercise to reduce [...] consulting health care provider Assessment & Plan (07/29/2024 4:40 PM EST): [...] Encounters Date Type Department Care Team Description 03/12/2025 9:00 AM EDT Office Visit [facility] MED[facility] [address] [place] [phone] Ronda Marquez MD Type 2 diabetes mellitus without complication, without long-term current use of insulin ([facility]); Breast nodule; Otitis of right ear; Primary hypertension; Primary insomnia 03/12/2025 Travel 03/11/2025 Telephone [facility] MED[facility]INE [address] [place] [phone] Ronda Marquez MD chart prep 03/09/[address] [phone] Ronda Marquez MD Nurse Triage 03/05/2025 Patient Outreach [address] [phone] Ronda Marquez MD Pre-visit Planning (SDOH screening completed on 07/18/2024) 02/02/2025 Refill [facility] [address] [place] [phone] Ronda Marquez MD Primary hypertension 01/28/2025 Refill [facility] [address] [place] [phone] Ronda Marquez MD Primary hypertension 01/28/2025 Telephone [facility] [address] [place] [phone] Ronda Marquez MD Med Refill 01/21/2025 Refill [facility] [address] [place] [phone] Ronda Marquez MD Acute non-recurrent maxillary sinusitis 01/14/2025 3:20 PM EDT Office Visit [facility]ALK[facility] [address] [place] [phone] Tye Leyva MD Acute recurrent sinusitis, unspecified location (Primary Dx) 01/14/2025 Telephone [facility]INE [address] [place] [phone] Ronda Marquez MD Nurse Triage 12/31/2024 3:20 PM EDT Office Visit [facility] [address] [place] [phone] Harpal Tobin MD Acute recurrent sinusitis, unspecified location (Primary Dx); Other chronic pain 12/31/2024 Travel from Last 3 Months Immunizations Immunization Administration Dates Next Due Influenza, Split (incl. purified surface antigen ) 11/05/2012 Moderna Covid-19 Vaccine 12+ 10/22/2020,09/25/19 Moderna Covid-19 Vaccine 6+ Bivalent 07/04/2022 Pneumococcal [...] Access Q2 Not on file 07/18/2024 Comments No Sex and Gender Information Value Date Recorded Sex Assigned at Female 05/15/2022 10:20 AM EDT Legal Sex Female 10:20 AM EDT Gender Identity Female 05/15/2022 10:20 AM EDT Sexual Orientation Straight 05/15/2022 10 :20 AM EDT Last Filed Vital Signs Vital Sign Reading Time Taken Comments Blood Pressure 140/80 03/12/2025 9:14 AM EDT Pulse 65 03/12/2025 9:14 AM EDT Temperature 36.9 C (98.4 F) 03/12/2025 9:14 AM EDT Respiratory Rate 21 03/12/2025 9:14 AM EDT Oxygen Saturation 96% 03/12/2025 9:14 AM EDT Inhaled Oxygen Concentration - - Weight 72.6 kg (160 lb 2 oz) 03/12/2025 9:14 AM EDT Height 157.5 cm (5' 2 ) 03/12/2025 9:14 AM EDT Body Mass Index 29.29 03/12/2025 9:14 AM EDT Plan of Treatment Upcoming Encounters Date Type Department Care Team (Late st Contact Info) Description 06/08/2025 2:30 PM EST Office Visit [facility] MED[facility]INE [address] [place] [address] Ronda Marquez MD [address] [place] [address] Health Maintenance Due Date Last Done Comments Eye Exam 1957 Alcohol/Substance Use Screening 1959 Hepatitis C Screening 1965 Zoster Vaccines (2 of 3) 12/31/2012 11/05/2012 DTaP/Tdap/Td Vaccines (2 - Td or Tdap) 11/05/2022 11/05/2012 Diabetes: Foot Exam 08/21/2023 08/21/2022, 08/21/2022, 08/21/2022 Diabetes: Urine Protein Screening 03/15/2024 03/15/2023, 02/10/2021 Lipid Panel 03/15/2024 03/15/2023, 12/14, 02/10/2021 Depression Screening 03/03/2025 03/03/2024, 03/03/20 24 COVID-19 Vaccine ( season) 2025 06/05/2024, 07/04/2022, 05/26/2021, Additional history exists Influenza Vaccine (#1) 2025 11/05/2012 SDOH Screening 07/18/2025 07/18/2024 Diabetes: Hemoglobin A1C 09/12/2025 025, 11/11/2024, 07/29/2024, Additional history exists Tobacco Screening 03/12/2026 03/12/2025 Pneumococcal Vaccine: 50+ Years Completed 03/02/2023, 01/21/2013, 03/25/2012 RSV Patients and Patients Aged 60 years or older Completed 06/05/2024 HIB Vaccines Aged Out No longer eligi [...] patient's age to complete this topic Meningococcal B Vaccine Aged Out No l onger eligible based on patient's age to complete [...] Procedure Name Priority Date/Time Associated Diagnosis Comments BI US BREAST LIMITED LEFT Routine 04/02/2025 11:30 AM EDT Breast nodule BI MAMMOGRAM DIAGNOSTIC TOMOSYNTHESIS LEFT Routine 04/02/2025 11:00 AM EDT Breast nodule POCT GLYCATED HEMOGLOBIN, TOTAL Routine 03/12/2025 9:17 AM EDT Type 2 diabetes mellitus without complication, without long-term current use of insulin (CMS/HCC) POCT GLUCOSE Routine 03/12/2025 9:16 AM EDT Type 2 diabetes mellitus without complication, without long-term current use of insulin (CMS/HCC) LIPID PANEL, STANDARD Routine 03/15/2023 12:48 PM EDT Encounter for preventative adult health care examination CREATININE, RANDOM URINE Routine 03/15/2023 12:00 AM EDT from Last 3 Months or Most Recently Relevant to Health Maintenance Results * BI US Breast Limited Left (04/02/2025 11:30 AM EDT) Anatomical Region Laterality Modality Breast Left Ultrasound 04/02/2025 11:3 0 AM EDT Narrative 04/02/2025 12:34 PM EDT [facility] [address] [place] [address] Ultrasound Report Signed Patient: Acevedo Nigel,Sandra MR#: [id number] : 1945 Acct:[id number] Age/Sex: 79 / F ADM Date: 04/02/25 Loc: HO.MAMMO Attending Dr: Ronda Vallejo MD Ordering Physician: Ronda Marquez MD Date of Service: 04/02/25 Procedure(s): US breast LT limited Accession Number(s): [id number] cc: Ronda Marquez MD Reason for Exam: nodule about 0.5cm located at 12 o clock EXAMINATION: MM DIAGNOSTIC DIGITAL BREAST TOMOSYNTHESIS, LEFT Limited left ultrasound. CLINICAL INFORMATION: Palpable left breast lump for one month with pain. Patient had diagnostic mammography [place] which was benign. COMPARISON: Mammography: [facility] on PACS. TECHNIQUE: Digital breast tomosynthesis is performed in both the craniocaudal and mediolateral oblique views along with computer-aided detection (CAD). Synthesized 2D images are generated from the tomosynthesis. FINDINGS: There are scattered areas of fibroglandular density (ACR BI-RADS breast composition Category b). BB marker in the upper central breast anterior depth without underlying abnormal finding. There is subtle increased tissue density in the lower inner breast anterior depth which could just represent overlapping breast tissue. No suspicious calcifications or other abnormal findings. Targeted color Doppler ultrasound scanning in the area the patient's palpable lump and retroareolar region including the lower inner breast retroareolar region demonstrates normal fibroglandular breast tissue there are a few ectatic normal-appearing ducts. US/US breast LT limited IMPRESSION: Left: 1. No mammographic or sonographic abnormal finding to account for the patient's palpable lump and pain. Recommend clinical evaluation follow-up. 2. Increased subtle tissue density lower inner breast anterior depth which could just represent overlapping breast tissue and without sonographic correlate. Recommend 6 month follow-up mammogram for further evaluation of stability. 3. Breast MRI could be considered for further evaluation. Breast MRI would need to be ordered by the patient's providing clinician. ASSESSMENT: BI-RADS BI-RADS 3 - Probably benign finding(s) - 6 month follow-up suggested RECOMMENDATION: 6 Month F/U Results were provided to the patient at time of visit by the technologist. This patient's information was entered into a reminder system with a target due date for their next mammogram. Electronically signed by: Elayne Sierra DO 04/02/2025 12:31 PM EDT Dictated By: Elayne Sierra DO Signed By: <Electronically signed by Elayne Sierra DO in OV> 04/02/25 1231 DD/ 1130 TD/TT: 04/02/25 1145 Paste Worker: Procedure Note Donotuseinterpreter, Image - 04/02/2025 [facility] [address] [place], [place] [address] Ultrasound Report Signed Patient: Marcellus Arceo#: M [id number] : 1945cct:[id number] Age/Sex: 79 / FADM Date: 04/02/25 Loc: HO.MAMMO Attending Dr: Ronda Vallejo MD Ordering Physician: Ronda Marquez MD Date of Service: 04/02/25 Procedure(s): US breast LT limited Accession Number(s): [id number] cc: Ronda Marquez MD Reason for Exam: nodule about 0.5cm located at 12 o clock EXAMINATION: MM DIAGNOSTIC DIGITAL BREAST TOMOSYNTHESIS, LEFT Limited left ultrasound. CLINICAL INFORMATION: Palpable left breast lump for one month with pain. Patient had diagnostic mammography October which was benign. COMPARISON: Mammography: [facility] on PACS. TECHNIQUE: Digital breast tomosynthesis is performed in both the craniocaudal and mediolateral oblique views along with computer-aided detection (CAD). Synthesized 2D images are generated from the tomosynthesis. FINDINGS: There are scattered areas of fibroglandular density (ACR BI-RADS breast composition Category b). BB marker in the upper central breast anterior depth without underlying abnormal finding. There is subtle increased tissue density in the lower inner breast anterior depth which could just represent overlapping breast tissue. No suspicious calcifications or other abnormal findings. Targeted color Doppler ultrasound scanning in the area the patient's palpable lump and retroareolar region including the lower inner breast retroareolar region demonstrates normal fibroglandular breast tissue there are a few ectatic normal-appearing ducts. US/US breast LT limited IMPRESSION: Left: 1. No mammographic or sonographic abnormal finding to account for the patient's palpable lump and pain. Recommend clinical evaluation follow-up. 2. Increased subtle tissue density lower inner breast anterior depth which could just represent overlapping breast tissue and without sonographic correlate. Recommend 6 month follow-up mammogram for further evaluation of stability. 3. Breast MRI could be considered for further evaluation. Breast MRI would need to be ordered by the patient's providing clinician. ASSESSMENT: BI-RADS BI-RADS 3 - Probably benign finding(s) - 6 month follow-up suggested RECOMMENDATION: 6 Month F/U Results were provided to the patient at time of visit by the technologist. This patient's information was entered into a reminder system with a target due date for their next mammogram. Electronically signed by: Elayne Sierra DO 04/02/2025 12:31 PM EDT Dictated By: Elayne Sierra DO Signed By: <Electronically signed by Elayne Sierra DO in OV> 04/02/25 1231 DD/ 1130 TD/TT: 04/02/25 1145 Paste Worker: us Ronda Vallejo MD IMG US PROCEDURES Fin al Result * BI Mammogram Diagnostic Tomosynthesis Left (04/02/2025 11:00 AM EDT) Anatomical Region Laterality Modality Breast Left Mammography 04/02/2025 11:0 0 AM EDT Narrative 04/02/2025 12:34 PM EDT [facility] [address] [place] [address] [place] [address] Mammography Report Signed Patient: Sandra Arceo MR#: M [id number] : 1945 Acct:[id number] Age/Sex: 79 / F ADM Date: 04/02/25 Loc: HO.MAMMO Attending Dr: Ronda Vallejo MD Ordering Physician: Ronda Marquez MD Results: 3.6MProbably Benign Finding - Short 6 M F/U Suggested Date of Service: 04/02/25 Follow Up: 6 Month F/U Procedure(s): MM tomosynthesis diagnostic LT Accession Number(s): [id number] cc: Ronda Marquez MD Reason For Exam: breast nodule 0.5cm at 12 o clock EXAMINATION: MM DIAGNOSTIC DIGITAL BREAST TOMOSYNTHESIS, LEFT Limited left ultrasound. CLINICAL INFORMATION: Palpable left breast lump for one month with pain. Patient had diagnostic mammography October which was benign. COMPARISON: Mammography: [facility] on PACS. TECHNIQUE: Digital breast tomosynthesis is performed in both the craniocaudal and mediolateral oblique views along with computer-aided detection (CAD). Synthesized 2D images are generated from the tomosynthesis. FINDINGS: There are scattered areas of fibroglandular density (ACR BI-RADS breast composition Category b). BB marker in the upper central breast anterior depth without underlying abnormal finding. There is subtle increased tissue density in the lower inner breast anterior depth which could just represent overlapping breast tissue. No suspicious calcifications or other abnormal findings. Targeted color Doppler ultrasound scanning in the area the patient's palpable lump and retroareolar region including the lower inner breast retroareolar region demonstrates normal fibroglandular breast tissue there are a few ectatic normal-appearing ducts. MM/MM tomosynthesis diagnostic LT IMPRESSION: Left: 1. No mammographic or sonographic abnormal finding to account for the patient's palpable lump and pain. Recommend clinical evaluation follow-up. 2. Increased subtle tissue density lower inner breast anterior depth which could just represent overlapping breast tissue and without sonographic correlate. Recommend 6 month follow-up mammogram for further evaluation of stability. 3. Breast MRI could be considered for further evaluation. Breast MRI would need to be ordered by the patient's providing clinician. ASSESSMENT: BI-RADS BI-RADS 3 - Probably benign finding(s) - 6 month follow-up suggested RECOMMENDATION: 6 Month F/U Results were provided to the patient at time of visit by the technologist. This patient's information was entered into a reminder system with a target due date for their next mammogram. Electronically signed by: Elayne Sierra DO 04/02/2025 12:31 PM EDT Dictated By: Elayne Sierra DO Signed By: <Electronically signed by Elayne Sierra DO in OV> 04/02/25 1231 DD/ 1100 TD/TT: 04/02/25 1115 Paste Worker: Procedure Note Donotuseinterpreter, Image - 04/02/2025 [facility] [address] [place] [address] Mammography Report Signed Patient: Marcellus Arceo#: M [id number] : 1945cct:[id number] Age/Sex: 79 / FADM Date: 04/02/25 Loc: HO.MAMMO Attending Dr: Ronda Vallejo MD Ordering Physician: Ronda Marquez MD Results: 3.6MProbably Benign Finding - Short 6 M F/U Suggested Date of Service: 04/02/25Follow Up: 6 Month F/U Procedure(s): MM tomosynthesis diagnostic LT Accession Number(s): [id number] cc: Ronda Marquez MD Reason For Exam: breast nodule 0.5cm at 12 o clock EXAMINATION: MM DIAGNOSTIC DIGITAL BREAST TOMOSYNTHESIS, LEFT Limited left ultrasound. CLINICAL INFORMATION: Palpable left breast lump for one month with pain. Patient had diagnostic mammography October which was benign. COMPARISON: Mammography: [facility] on PACS. TECHNIQUE: Digital breast tomosynthesis is performed in both the craniocaudal and mediolateral oblique views along with computer-aided detection (CAD). Synthesized 2D images are generated from the tomosynthesis. FINDINGS: There are scattered areas of fibroglandular density (ACR BI-RADS breast composition Category b). BB marker in the upper central breast anterior depth without underlying abnormal finding. There is subtle increased tissue density in the lower inner breast anterior depth which could just represent overlapping breast tissue. No suspicious calcifications or other abnormal findings. Targeted color Doppler ultrasound scanning in the area the patient's palpable lump and retroareolar region including the lower inner breast retroareolar region demonstrates normal fibroglandular breast tissue there are a few ectatic normal-appearing ducts. MM/MM tomosynthesis diagnostic LT IMPRESSION: Left: 1. No mammographic or sonographic abnormal finding to account for the patient's palpable lump and pain. Recommend clinical evaluation follow-up. 2. Increased subtle tissue density lower inner breast anterior depth which could just represent overlapping breast tissue and without sonographic correlate. Recommend 6 month follow-up mammogram for further evaluation of stability. 3. Breast MRI could be considered for further evaluation. Breast MRI would need to be ordered by the patient's providing clinician. ASSESSMENT: BI-RADS BI-RADS 3 - Probably benign finding(s) - 6 month follow-up suggested RECOMMENDATION: 6 Month F/U Results were provided to the patient at time of visit by the technologist. This patient's information was entered into a reminder system with a target due date for their next mammogram. Electronically signed by: Elayne Sierra DO 04/02/2025 12:31 PM EDT RP Dictated By: Elayne Sierra DO Signed By: <Electronically signed by Elayne Sierra DO in OV> 04/02/25 1231 DD/ 1100 TD/TT: 04/02/25 1115 Paste Worker: Ronda Vallejo MD IMG BI PROCEDURES Fin al Result * POCT HGB A1C (03/12/2025 9:17 AM EDT) Hemoglobin A1C 5.6 4.0 - 5.7 % QC Media Lot # [id number] Lot# Expiration Date Blood 03/12/2025 9:17 AM EDT Ronda Vallejo MD POINT OF CARE TEST EN TER/EDIT ORDERABLES Final Result * POCT Glucose (03/12/2025 9:16 AM EDT) Glucose Blood, POC 128 60 - 200 mg/dL QC Media Lot # [id number] Lot# Expiration Date [id number] Blood Capillary blood specimen / Unknown 03/12/2025 9:16 AM EDT us Ronda Vallejo MD POINT OF CARE TEST EN TER/EDIT ORDERABLES Final Result * Lipid Panel, Standard (03/15/2023 12:48 PM EDT) Triglycerides 141 <150 mg/dL [facility] Comment:Desirable Triglyceri de: less than 150 mg/dLBorderline High Triglyceride 150-199 mg/dLHigh Triglyceride: 200-499 mg/dLVery High Triglyceride: greater than or equal to 5OO mg/dL Cholesterol 150 <200 mg/dL [facility] Comment:Desirable Cholestero l: less than 200 mg/dLBorderline High Cholesterol: 200-239 mg/dLHigh Cholesterol: greater than 239 mg/dL LDL Cholesterol Calculated 74 <100 mg/dL [facility] Comment:Desirable LDL: less than 100 mg/dLNear Optimal/Above Optimal LDL: 110- 129 mg/dLBorderline High LDL: 130-159 mg/dLHigh LDL: 160-189 mg/dLVery High LDL: greater than or equal to 190 mg/dL HDL Cholesterol 48 >40 mg/dL [facility] Comment:Desirable HDL: great er than 40 mg/dL Note: This HDL assay may give artificially low results in patients with liver disease. Blood Venous blood specimen / Unknown 03/15/2023 12:48 PM EDT 03/15/2023 12:48 PM EDT us Ronda Vallejo MD LAB BLOOD ORDERABLES Final Result [facility] [address] [place] [phone] * Creatinine, Random Urine (03/15/2023 12:00 AM EDT) Creatinine, Urine 92.78 mg/dL [facility] 03/15/2023 03/15/2023 us Ronda Vallejo MD LAB URINE ORDERABLES Final Result [facility] [address] [place], [place] [phone] from Last 3 Months or Most Recently Relevant to Health Maintenance Insurance [facility]LY [facility] [employer] (HMO D-SNP) [address] [place] [address] [place] [address] Care Teams Health Occupations Instructor Relationship Specialty Start Date End Date Ronda Marquez MD [address] [place] [address] PCP - General Family Medicine 03/09/22
--- OUTSIDE RECORDS SUMMARY | 2025-04-02 12:53 | XMS_ITS | Encounter Summary ---
Author Organization [email or web address] Address [address] [place] [address] Care Team Providers Care Facilities Clerk Name Role Phone Ronda Marquez MD Primary Care Provide r Encounter Details Date Type Department Care Team (Late st Contact Info) Description 06/29/2022 Orders Only [facility] [address] [place] [address] Yluiya Santiago MD [address] [place] [address] Social History Tobacco Use Types Packs/Day Years [...] Description 06/08/2025 2:30 PM EST Office Visit [facility] [address] [place], [place] [phone] Ronda Marquez MD [address] [place] [address] documented as of this encounter Visit Diagnoses Not on filedocumented in this encounter Care Teams Facilities Clerk Relationship Specialty Start Date End Date Ronda Marquez MD [address] [place] [address] PCP - General Family Medicine 03/09/22 documented as of this encounter
--- OUTSIDE RECORDS SUMMARY | 2025-04-02 12:53 | XMS_ITS | Encounter Summary ---
Author Organization [employer] Address [address] [place] [address] [address] [place] [address] Care Team Providers Care Director Veterinary Name Role Phone Ronda Marquez MD Primary Care Provide r Reason for Visit * Reason Comments Med Refill Encounter Details Date Type Department Care Team ([facility] st Contact Info) Description 09/09/2024 Refill [facility] [address] [place] [address] Ronda Marquez MD [address] [place] [address] Social History Tobacco Use Types Packs/Day Years [...] Description 06/08/2025 2:30 PM EST Office Visit [facility] [address] [place] [address] Ronda Marquez MD [address] [place] [address] documented as of this encounter Visit Diagnoses Not on filedocumented in this encounter Additional Health Concerns Assessment Noted Time PHQ-9 Depression Total Score: 0 03/03/20 24 9:32 AM EDT documented as of this encounter Care Teams Director Veterinary Relationship Specialty Start Date End Date Ronda Marquez MD [address] [place] [phone] PCP - General Family Medicine 03/09/22 documented as of this encounter
--- OUTSIDE RECORDS SUMMARY | 2025-04-02 12:53 | XMS_ITS | Encounter Summary ---
Author Organization [employer] Address [address] [place] [address] [address] [address] Care Team Providers Care Fiber Optic Assembly Worker Name Role Phone Ronda Marquez MD Primary Care Provide r Reason for Visit * Reason Comments Med Refill Encounter Details Date Type Department Care Team ([facility] st Contact Info) Description 12/30/2024 Refill [facility] [address] [place] [address] Ronda Marquez MD [address] [place] [address] Allergic rhinitis, unspecified seasonality, unspecified trigger Social History Tobacco Use Types Packs/Day Years [...] your housing situation today? I have lauro donna 07/18/[address] you li [...] Description 06/08/2025 2:30 PM EST Office Visit [facility] [address] [place] [address] Ronda Marquez MD [address] [place] [address] documented as of this encounter Visit Diagnoses Diagnosis Allergic rhinitis, unspecified seasonality, unspecified trigger documented in this encounter Additional Health Concerns Assessment Noted Time PHQ-9 Depression Total Score: 0 03/03/20 9:32 AM EDT documented as of this encounter Care Teams Fiber Optic Assembly Worker Relationship Specialty Start Date End Date Ronda Marquez MD [address] [place] [address] PCP - General Family Medicine 03/09/22 documented as of this encounter
--- OUTSIDE RECORDS SUMMARY | 2025-04-02 12:53 | XMS_ITS | Encounter Summary ---
Author Organization [employer] Address [address] [place] [address] [address] [place] [address] Care Team Providers Care Medical Physics Professor Name Role Phone Ronda Marquez MD Primary Care Provide r Reason for Visit * Reason Comments Med Refill Encounter Details Date Type Department Care Team ([facility] st Contact Info) Description [address] [facility] [address] [place] [address] Harpal Tobin MD [address] [place] [address] Moderate persistent asthma with exacerbation Social History [...] Description 06/08/2025 2:30 PM EST Office Visit [facility] [address] [place] [phone] Ronda Marquez MD [address] [place] [address] documented as of this encounter Visit Diagnoses Diagnosis Moderate persistent asthma with exacerbation Unspecified asthma, with exacerbation documented in this encounter Additional Health Concerns Assessment Noted Time PHQ-9 Depression Total Score: 4 03/02/20 23 1:46 PM EDT documented as of this encounter Care Teams Medical Physics Professor Relationship Specialty Start Date End Date Ronda Marquez MD [address] [place] [phone] PCP - General Family Medicine 03/09/22 documented as of this encounter
--- OUTSIDE RECORDS SUMMARY | 2025-04-02 12:53 | XMS_ITS | Encounter Summary ---
Author Organization [employer] Address [address] [place] [address] 7 [place] [address] Care Team Providers Care Principal Trainer Name Role Phone Ronda Marquez MD Primary Care Provide r Reason for Visit * Reason Comments Med Refill Encounter Details Date Type Department Care Team ([facility] Contact Info) Description 07/10/2022 Refill [facility] [address] [place] [address] Aure Darnell ANP [address] [place] [address] Social History Tobacco Use Types Packs/Day Years [...] Upcoming Encounters Date Type Department Care Team ([facility] Contact Info) Description 06/08/2025 2:30 PM EST Office Visit [facility] [address] [place] [address] Ronda Marquez MD [address] [place] [address] documented as of this encounter Visit Diagnoses Not on filedocumented in this encounter Care Teams Principal Trainer Relationship Specialty Start Date End Date Ronda Marquez MD [address] [place] [address] PCP - General Family Medicine 03/09/22 documented as of this encounter
--- OUTSIDE RECORDS SUMMARY | 2025-04-02 12:53 | XMS_ITS | Encounter Summary ---
Author Organization [employer] Address [address] [place] [address] Care Team Providers Care Endo Tech Name Role Phone Ronda Marquez MD Primary Care Provide r Reason for Visit * Reason Onset Date Comments Nurse Triage 03/09/2025 Encounter Details Date Type Department Care Team ([facility] st Contact Info) Description 03/09/2025 Telephone [facility] [address] [place] [address] Ronda Marquez MD [address] [place] [address] Nurse Triage Social History Tobacco Use Types Packs/Day Years [...] encounter Miscellaneous Notes * Telephone Encounter - Joaquina Quezada RN - 03/09/2025 1:31 PM EDT Triage call with [facility] [place] [id number] [place]. Pt reports a small pea sized hard lump on the top/middle of left breast. Pt denies rash, nipple discharge, peeling skin or changed shape of breast. Pt denies any hx of breast CA, fibrocystic disease. Pt does have an apt this 03/12/25 with PCP and will be seen at that time. Pt will wait to be seen at that apt. Computer error unable to verify insurance. Protocol Used: Breast Symptoms (Adult) Protocol-Based Disposition: See in Office or Video Visit within 3 Days Positive Triage Question: * Breast lump * All higher-acuity triage questions were negative Care Advice Discussed: * Reasons To Call Back - You feel a lump - Nipple discharge occurs - Change in appearance of breast - You have more questions - You become worse * Telephone Encounter - Leon Keyes - 03/09/2025 12:54 PM EDT Symptom: Breast Symptoms Outcome: Schedule an urgent appointment (within 4 hours) or talk to a nurse or provider soon Reason: Painful lump The caller accepted this outcome. Thai speaking documented in this encounter Plan of Treatment Upcoming Encounters Date Type Department Care Team (Late st Contact Info) Description 06/08/2025 2:30 PM EST Office Visit [facility] [address] [place] [address] Ronda Marquez MD [address] [place] [phone] documented as of this encounter Visit Diagnoses Not on filedocumented in this encounter Additional Health Concerns Assessment Noted Time PHQ-9 Depression Total Score: 0 03/03/20 24 9:32 AM EDT documented as of this encounter Care Teams Endo Tech Relationship Specialty Start Date End Date Ronda Marquez MD [address] [place] [id number] PCP - General Family Medicine 03/09/22 documented as of this encounter
--- OUTSIDE RECORDS SUMMARY | 2025-04-02 12:53 | XMS_ITS | Encounter Summary ---
Author Organization [employer] Address [address] [place] [address] Care Team Providers Care Fitter Machinist Name Role Phone Ronda Marquez MD Primary Care Provide r Reason for Visit * Reason Onset Date Comments Referral 04/10/2023 Encounter Details Date Type Department Care Team ([facility] st Contact Info) Description 04/10/2023 Telephone [facility] [address] [place] [address] Ronda Marquez MD [address] [place] [address] Referral Social History Tobacco Use Types Packs/Day [...] get help to book urology appt at [facility] . [facility] has called them several timeand left voice message at phone # but does not seem to get a call back. documented in this encounter Plan of Treatment Upcoming Encounters Date Type Department Care Team (Late st Contact Info) Description 06/08/2025 2:30 PM EST Office Visit [facility] [address] [place] [address] Ronda Marquez MD [address] [place] [phone] documented as of this encounter Visit Diagnoses Not on filedocumented in this encounter Additional Health Concerns Assessment Noted Time PHQ-9 Depression Total Score: 4 03/02/20 23 1:46 PM EDT documented as of this encounter Care Teams Fitter Machinist Relationship Specialty Start Date End Date Ronda Marquez MD [address] [place] [phone] PCP - General Family Medicine 03/09/22 documented as of this encounter
== END 2025-04-02 10:46 | disposition home or self-care (01) ==
LOC: HO.MAMMO 10:45
PROVIDERS: PCP Internal Medicine; Visit Provider Internal Medicine
DX: N63.25 Unspecified lump in the left breast, overlapping quadrants (principal)
CPT/HCPCS: 76642; 77061; 77065

== ENCOUNTER → 2025-04-02 11:00 | Outpatient (BNV) | payer OTHER, SELFPAY | PROVIDERS: PCP Internal Medicine; Visit Provider Internal Medicine | DX: N63.25 Unspecified lump in the left breast, overlapping quadrants (principal) | CPT/HCPCS: 76642; 77065; G0279 ==

== ENCOUNTER → 2025-05-18 10:54 | Outpatient (BNV) | payer OTHER, SELFPAY | PROVIDERS: PCP Internal Medicine; Visit Provider Internal Medicine | DX: R92.322 Mammographic fibroglandular density, left breast (principal) | CPT/HCPCS: 77049 ==

== ENCOUNTER 2025-05-18 10:55 | Outpatient (REF) | payer OTHER, SELFPAY ==
--- NOTE | ~2025-05-18 | MR_ITS ---
EXAMINATION: MR BREAST WITHOUT AND WITH CONTRAST, BILATERAL CLINICAL INFORMATION: Palpable left breast lump for one month with pain upper central breast anterior depth with normal mammogram and ultrasound. Patient is on a six-month follow-up for subtle asymmetry left breast lower inner quadrant anterior depth without sonographic correlate. COMPARISON: Comparison is made with relevant prior imaging. TECHNIQUE: MR imaging of the breast was performed using T1, T2 and fat saturated techniques. Dynamic multiphase imaging was also performed after the administration of intravenous gadolinium contrast agent. Computer generated 3D reconstruction and enhancement kinetic analysis was ulitized by the radiologist in the interpretation of this examination. FINDINGS: Breast composition: Heterogeneous fibroglandular breast tissue Background parenchymal enhancement: Moderate LEFT BREAST: There is subtle ill-defined areas of enhancement 7 mm enhancing area series 1043 image 68/126 in the upper inner breast anterior depth Series 40,000 image 60/113 and 55/113. These could represent an area of tortuous vessels overlapping versus other enhancing mass or area of nonmass enhancement. No other suspicious enhancing masses or areas of non mass enhancement. No axillary or internal mammary adenopathy. RIGHT BREAST: No suspicious enhancing masses or areas of non mass enhancement. No axillary or internal mammary adenopathy. Limited views of the chest and abdomen are unremarkable. MR/MR breast BI wo/w con IMPRESSION: Right: No MRI evidence of malignancy. Left: Subtle areas of enhancement which are ill-defined in the upper inner left breast anterior depth which could be related to overlapping tortuous blood vessels versus nonmass enhancement/mass. Recommend six-month follow-up MRI for further evaluation of stability or resolution. If the area has not resolved in 6 months MRI guided core needle biopsy could be considered given the patient has a painful palpable lump in the upper central breast anterior depth without mammographic or sonographic abnormal finding. ASSESSMENT: LEFT BREAST: BI-RADS 3-Probably Benign RIGHT BREAST: BI-RADS 1-Negative RECOMMENDATIONS: 6 month follow-up MRI for further evaluation left upper inner quadrant anterior depth ill-defined area measuring up to 7 mm. Follow up MRI needs to be ordered by the patient's providing clinician. Electronically signed by: Elayne Sierra DO 05/19/2025 07:47 PM [facility]
--- OUTSIDE RECORDS SUMMARY | 2025-05-18 13:37 | XMS_ITS | Data Portability ---
Author Organization 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 Evaluation in the field was performed by my general office associate colleague, as noted above, I provided real-time [...] Ag, QL IA, respiratory specimen 2024 025 [facility], [address] [place] [address], [id number] 18:42:59 rapid strep group A, throat 2024 025 [facility], [address] [place] [address], [id number] 18:44:04 rapid SARS CoV 2 Ag, QL IA, respiratory specimen [address], [id number] 17:09:08 rapid flu (A+B) 2024 [facility], [address] [place] [address], [id number] 17:09:25 Referral None recorded. Procedures None recorded. Surgeries None recorded. Imaging None recorded. Medication Orders ipratropium 0.5 mg-albutero l 3 mg (2.5 mg base)/3 mL nebulizatio n soln 2024 [facility], [address] [place] [address], [id number], 17:58:09 prednisone 20 mg tablet 2024 025 [facility], [address] [place] [address], [id number], 5 17:58:10 azithromyci n 250 mg tablet 2024 025 [facility], [address] [place] [address], [id number], 5 17:58:10 albuterol sulfate HFA 90 mcg/actuati on aerosol inhaler 2024 025 [facility], [address] [place] [address], [id number], 5 13:59:52 prednisone 20 mg tablet 2024 025 [facility], [address] [place] [address], [id number], 5 18:07:46 Flonase Allergy Relief 50 mcg/actuati on nasal spray,suspe nsion 2024 025 [facility], [address] [place] [address], [id number], 5 18:07:47 azithromyci n 250 mg tablet 2024 025 [facility], [address] [place] [address], [id number], 5 18:07:46 azithromyci n 500 mg tablet 2024 025 [facility], [address] [place] [address], [id number], 5 11:28:09 azithromyci n 250 mg tablet 2024 025 [facility], [address] [place] [address], [id number], 5 11:53:38 azithromyci n 250 mg tablet 2023 024 [facility], [address] [place] [address], [id number], 4 14:42:06 azithromyci n 250 mg tablet 2023 024 [facility], [address] [place] [address], [id number], 4 16:41:11 azithromyci n 500 mg tablet 2022 023 [facility], [address] [place] [address], [id number], 3 15:57:23 Patient TargetsNo targets recorded. Patient [...] Not Available Not Available No t Available cyclobenzap rine 10 mg tablet TAKE 1 TABLET BY MOUTH THREE TIMES DAILY FOR 10 DAYS active Not Available Not Available No t Available atorvastati n 40 mg tablet TAKE 1 TABLET BY MOUTH EVERY DAY AT BEDTIME active Not Available Not Available No t Available doxycycline hyclate 100 mg capsule TAKE 1 CAPSULE BY MOUTH TWICE DAILY FOR 7 DAYS TAKE WITH WATER AND FOOD Do not lie down for 30 minutes after taking 02/01 completed Not Available Not Available Not Available albuterol sulfate 2.5 mg/3 mL (0.083 %) solution for nebulizatio n INHALE 1 AMPULE USING A NEBULIZER EVERY 4 HOURS NEEDED FOR WHEEZING active Not Available Not Available No t Available cetirizine 10 mg tablet TAKE 1 TABLET BY MOUTH EVERY DAY active Not Available Not Available No t Available oxybutynin chloride ER 10 mg tablet,exte nded release 24 hr TAKE 1 TABLET BY MOUTH EVERY MORNING. DO NOT BREAK, CRUSH, DISSOLVE OR CHEW. active Not Available Not Available No t Available azithromyci n 250 mg tablet TAKE 1 TABLET BY MOUTH ONCE DAILY FOR 4 DAYS active Not Available Not Available No t Available polyvinyl alcohol 1.4 % eye drops PLACE 1 DROP IN EACH EYE TWICE DAILY active Not Available Not Available No t Available lisinopril 20 mg tablet TAKE 1 TABLET BY MOUTH EVERY DAY IN THE MORNING active Not Available Not Available No t Available prednisone 20 mg tablet TAKE 2 TABLETS BY MOUTH DAILY FOR 4 DAYS active Not Available Not Available No t Available fexofenadin e 180 mg tablet TAKE 1 TABLET BY MOUTH EVERY DAY NEEDED FOR ALLERGIES FOR UP TO 14 DAYS active Not Available Not Available No t Available amlodipine 5 mg tablet TAKE 1 TABLET BY MOUTH EVERY DAY active Not Available Not Available No t Available Sudogest 30 mg tablet TAKE 1 TABLET BY MOUTH EVERY 4 HOURS NEEDED FOR NASAL CONGESTIO N FOR UP TO 10 DAYS active Not Available Not Available No t Available acetaminoph en ER 650 mg tablet,exte nded release TAKE 1 TABLET BY MOUTH EVERY 8 HOURS NEEDED FOR PAIN SWALLOW WHOLE WITH WATER DO NOT BREAK, CRUSH, DISSOLVE OR CHEW active Not Available Not Available No t Available amlodipine 10 mg tablet TAKE 1 TABLET BY MOUTH EVERY DAY active Not Available Not Available No t Available benzonatate 100 mg capsule TAKE 1 CAPSULE BY MOUTH THREE TIMES DAILY IN THE MORNING, AT NOON, AND AT BEDTIME NEEDED FOR COUGH FOR UP TO 7 DAYS, DO NOT BREAK, CRUSH, DISSOLVE OR CHEW active Not Available Not Available No t Available oseltamivir 75 mg capsule TAKE 1 CAPSULE BY MOUTH TWICE DAILY FOR 5 DAYS active Not Available Not Available No t Available nitrofurant oin macrocrysta l 100 mg capsule TAKE 1 CAPSULE BY MOUTH TWICE DAILY WITH FOOD FOR 10 DAYS active Not Available Not Available No t Available omeprazole 20 mg capsule,del ayed release TAKE 1 CAPSULE BY MOUTH EVERY DAY BEFORE BREAKFAST active Not Available Not Available No t Available montelukast 10 mg tablet TAKE 1 TABLET BY MOUTH EVERY DAY IN THE EVENING active Not Available Not Available No t Available albuterol sulfate HFA 90 mcg/actuati on aerosol inhaler INHALE 2 PUFFS BY MOUTH EVERY 4 HOURS NEEDED FOR 10 DAYS active Not Available Not Available No t Available lisinopril 40 mg tablet TAKE 1 TABLET BY MOUTH EVERY DAY active Not Available Not Available No t Available fluticasone propionate 50 mcg/actuati on nasal spray,suspe nsion INSTILL 2 SPRAYS IN EACH NOSTRIL ONCE DAILY active Not Available Not Available No t Available doxycycline hyclate 100 mg tablet TAKE 1 TABLET BY MOUTH TWICE DAILY FOR 7 DAYS. TAKE WITH A FULL GLASS OF WATER. Do not lie down for 30 minutes after taking 02/01 completed Not Available Not Available Not Available amoxicillin 875 mg-potassiu m clavulanate 125 mg tablet TAKE 1 TABLET BY MOUTH TWICE DAILY FOR 10 DAYS active Not Available Not Available No t Available azithromyci n 500 mg tablet TAKE 1 TABLET BY MOUTH ONCE DAILY FOR 3 DAYS 02/01 completed Not Available Not Available Not Available Alcohol Prep Pads USE DIRECTED TO TEST BLOOD SUGAR ONCE DAILY active Not Available Not Available No t Available Mucinex DM 30 mg-600 mg tablet,exte nded release 12 hr TAKE 1 TABLET BY MOUTH THREE TIMES DAILY active Not Available Not Available No t Available Allergy Relief and Nasal Decongestan t 10 mg-240 mg tablet,exte nded rel TAKE 1 TABLET BY MOUTH ONCE DAILY. DO NOT BREAK, CRUSH, DISSOLVE OR CHEW. active Not Available Not Available No t Available Flovent HFA 110 mcg/actuati on aerosol inhaler INHALE 1 PUFF BY MOUTH TWICE DAILY. RINSE MOUTH AFTER USING. active Not Available Not Available No t Available FreeStyle Lite Strips USE DIRECTED TO TEST BLOOD SUGAR ONCE DAILY active Not Available Not Available No t Available FreeStyle [place] Lite kit USE DIRECTED TO TEST BLOOD SUGAR ONCE DAILY active Not Available Not Available No t Available melatonin 5 mg tablet TAKE 1 TABLET BY MOUTH AT BEDTIME active Not Available Not Available No t Available Vitamin D3 50 mcg (2,000 unit) capsule TAKE 1 CAPSULE BY MOUTH ONCE DAILY active Not Available Not Available No t Available Cindi-Tussin 100 mg/5 mL oral liquid TAKE 10 ML BY MOUTH THREE TIMES DAILY IN THE MORNING, AT NOON, AND AT BEDTIME NEEDED FOR COUGH active Not Available Not Available No t Available Myrbetriq 25 mg tablet,exte nded release TAKE 1 TABLET BY MOUTH ONCE DAILY active Not Available Not Available No t Available TRUEplus Lancets 33 gauge USE DIRECTED TO TEST BLOOD SUGAR ONCE DAILY active Not Available Not Available No t Available Arnuity Ellipta 100 mcg/actuati on powder for inhalation INHALE 1 PUFF BY MOUTH EVERY DAY AT THE SAME TIME RINSE MOUTH AFTER USING active Not Available Not Available No t Available Compact Space Chamber USE DIRECTED active Not Available Not Available No t Available Gemtesa 75 mg tablet TAKE 1 TABLET BY MOUTH DAILY active Not Available Not Available No t Available Vitals Date Recorded Heart rate Respiratory rate Body temperature Oxygen saturation Oxygen saturation in Arterial blood by Pulse oximetry Systolic And Diastolic Provider Name and Address Organization Details Last Updated DateTime 5 68 /min 18 /min 99.7 [degF] 96 % 96 % 122/74 mm[Hg] Not Available [facility] 5 11:17:54 Date Recorded Body height Oxygen saturation Oxygen saturation in Arterial blood by Pulse oximetry Respiratory rate Heart rate Body weight Body temperature Systolic And Diastolic Provider Name and Address Organization Details Last Updated DateTime 5 165.1 cm 98 % 98 % 18 /min 88 /min 38968.8 g 99.2 [degF] 122/60 mm[Hg] Not Available [facility] 5 17:45:59 Date Recorded Heart rate Oxygen saturation Oxygen saturation in Arterial blood by Pulse oximetry Respiratory rate Body temperature Systolic And Diastolic Provider Name and Address Organization Details Last Updated DateTime 4 76 /min 98 % 98 % 16 /min 98.5 [degF] 174/81 mm[Hg] Not Available [facility] 4 13:50:59 Date Recorded Body temperature Body height Oxygen saturation Oxygen saturation in Arterial blood by Pulse oximetry Body weight Respiratory rate Heart rate Systolic And Diastolic Provider Name and Address Organization Details Last Updated DateTime 3 98.1 [degF] 167.64 cm 96 % 96 % 18063.8 g 18 /min 78 /min 134/84 mm[Hg] Not Available [facility] 13:06:00 Date Recorded Respiratory rate Body temperature Heart rate Oxygen saturation Oxygen saturation in Arterial blood by Pulse oximetry Systolic And Diastolic Provider Name and Address Organization Details Last Updated DateTime 3 18 /min 98.5 [degF] 86 /min 95 % 95 % 121/79 mm[Hg] Not Available [facility] 3 17:32:02 Social History None recorded. Functional Status None recorded. Mental Status None recorded. Family History Nothing Reported. Medical History No medical history recorded. Gynecological HistoryNo gynecological history recorded. Obstetrics History GPAL:G 0 P 0 0 0 0 Past Encounters Encounter ID Performer Location Encounter Start Date Encounter Closed Date Diagnosis/Indication Diagnosis SNOMED-CT Code Diagnosis ICD10 Code Diagnosis IMO Codes Diagnosis Note [id number] TONY MIRZA MD [facility] [address] [place] [id number] 06/13/2023 13:05:58 06/13/2023 22:31:21 Acute sinusitis 38885662 J01.90 [id number] Yaritza Mcallister MD [facility] [address] [place] [id number] 06/18/2023 17:31:59 06/19/2023 09:35:10 Acute sinusitis [id number] J01.90 [id number] Marixa Ojeda MD [facility] [address] [place] [id number] 05/28/2024 13:50:56 05/28/2024 18:29:35 Cough 37692749 R05.9 As noted, we were called to see this patient regarding concerns of cough. Evaluation in the field was performed by my general office associate colleague, as noted above, I provided real-time [...] changes to consciousn ess, chest pain, dyspnea. [id number] Marixa Ojeda MD [facility] [address] [place] [id number] 08/14/2024 11:17:49 08/14/2024 16:51:09 Acute sinusitis [id number] J01.90 As noted, we were called to see this patient regarding concerns of sinus congestion . Evaluation in the field was performed by my general office associate colleague, as noted above, I provided real-time [...] changes to consciousn ess, chest pain, dyspnea. [id number] SUBHA NICOLAS MD [facility] [address] [phone] 01/22/2025 17:45:57 01/22/2025 22:21:50 Acute bronchitis [id number] J20.9 [id number] Evaluation in the field was performed by my general office associate colleague, as noted above, I provided real-time direction and supervisio n for this visit. The evaluation revealed 79-year-ol d female with a past medical history of Asthma (on Arnuity Ellipta but not using albuterol) , Hypertensi on, and Type 2 Diabetes Mellitus presents with upper respirator y symptoms.T he patient reports that her symptoms began approximat natalee 15 days ago. She was evaluated by her PCP and prescribed doxycyclin e, which she completed two days ago. She now reports ongoing nasal congestion , increased use of her inhaler (Arnuity Ellipta, which she normally uses twice daily), and a productive cough with yellow sputum. She endorses intermitte nt low-grade fevers but denies chills, body aches, headaches, dizziness, or lightheade dness. She also denies chest pain with breathing or coughing and is able to speak in full sentences. Vital Signs: BP: 122/60, HR: 88, RR: 18, SpO2: 98% on room airTemp: 99.2 FExam: Alert, awake, and oriented. No acute distress.S peaking in full sentences. Lungs: diminished breath sounds bilaterall y, no wheezing or rhonchi appreciate dNo lower extremity edemaCOVID -19, Influenza, and Rapid Strep tests: NegativeAl lertylor reviewed Impression :Acute bronchitis ,Possible mild asthma exacerbati on Plan:Duone b x1 administer ed by paramedicA lbuterol MDI with spacer prescribed and sent to her pharmacy; instructed to use every 4 hours for the next few days, then as neededPred nisone 40 mg daily for 5 daysAzithr omycin prescribed for possible bacterial bronchitis Flonase prescribed and sent to pharmacy for nasal symptomsTy lenol recommende d as needed for fever or myalgiasCo ntinue supportive measures such as tea and honey, as currently doingAdvis ed to go to urgent care for chest X-ray if no improvemen t or if symptoms worsen within the next 48 7 2 hoursRed flags discussed with the patient including: increasing shortness of breathches t pain or pressure, inability to speak in full sentences, high fevers,con fusion or lethargy, worsening wheezing or respirator y distress Primary care, consider__ _ Dispositio n: We discussed the diagnostic uncertaint [...] new or worsening serious symptoms, particular ly increasing shortness of breathches t pain or pressure, inability to speak in full sentences, high fevers,con fusion or lethargy, worsening wheezing or respirator y distress Health Concerns Section Related Observation LastModified by Organization Detai ls LastModified Time None Recorded Concern Status LastModified by Organization Details LastModified Time None Recorded Advance Directives Directive None Recorded Payers Insurance Date Sequence Insurance Name Policy Number Policy Cullen Covered Member ID Cullen Member ID Guarantor Name 01/22/2025 1 [facility] - DOS ON OR AFTER 2022 - DUAL ELIGIBLE - RESIDENTIAL OPTIONS AND ONE CARE (MEDICARE REPLACEMENT/ADV ANTAGE - HMO) Sandra gale [id number] Sandra Mcnulty ez Notes Date Note Type Note Provider Name and Address Organization Details Recorded Time 06/13/2023 text/html HPI: Patient seen at [facility] Sunday for symptoms of illness x 1 week. Diagnosed with sinus infection. Placed on Augmentin and Predinisone and patient concerned that she does not feel better. Reports that she has been on Zpack in past with better results. No fever shortness of breath. Was Negative Flu and Covid in ED per patient ................... ................... ................... ................... ................... ................... ................... ........ [facility] Nursing Assessment: Comments: Reviewed. No additional information needed to process visit. Cheryl Soto RN ................... ................... ................... ................... ................... ................... ................... ........ Resident Services Manager Note From Lasha Lassiter: PT caox3 complains [...] productive cough noted. Rapid POC covid negative. [facility] advises pt to continue prescriptions, give them a chance to work, and to call back in 3 days if symptoms not improved. Red flags and pt education discussed. ................... ................... ................... ................... ................... ................... ................... ........ Disposition: Fulfilled TONY MIRZA MD [address] [facility],[address], [place], [phone], [employer] - [employer] 06/13/2023 16:39:15 06/18/2023 text/html [facility] Nursing Assessment: Reason For Request: Mbr is [...] a sinus infection. Murali Mcallister MD [address] [facility],[address], [place], [address], [place] [employer] - RENEE FULTON 06/18/2023 17:52:22 05/28/2024 text/html HPI: Per OV [...] [facility] referral as unable to come into [facility]. ................... ................... ................... ................... ................... ................... ................... ........ [facility] Nurse Triage Notes (Mckenzie Soto): Chief Complaints: Cough PMH: COPD/Asthma, Hypertension, Diabetes Mellitus Type 2, Asthma Comments: HPI reviewed- NE ................... ................... ................... ................... ................... ................... ................... ........ Resident Services Manager Note From Harpal Swartz: This 78-year-old female [...] questions and is agreeable to this plan. ................... ................... ................... ................... ................... ................... ................... ........ [facility] Consulted: Marixa Ojeda ................... ................... ................... ................... ................... ................... ................... ........ Disposition: Fulfilled Marixa Ojeda MD [address] [facility],[address], [place], [phone], [employer] 05/28/2024 14:43:54 08/14/2024 text/html [facility] Nurse Triage Notes (She Albert - RN): Reason For Request: Pt reporting sinusitis and is requesting z-pack and azithromycin>noting anytime she has this flare up , zpack and azithromycin is her usual treatment Chief Complaints: Common cold symptoms PMH: COPD/Asthma, Hypertension, Diabetes Mellitus Type 2, Asthma PMH Reviewed at 08/14/2024 - 10:32 Allergies Reviewed at 08/14/2024 - 10:32 Comments: c/o sinusitis, congested, coughing, headaches, fever since Sunday day 5. No sick contacts. Home Covid test negative. hx of COPD, asthma- no home 02, has home nebulizer and uses daily. German speaking member/ utilized marketing outreach coordinator. All questions answered. Alvin HUNT Resident Services Manager Organization Information for Riley Longo Business Legal Name: [employer]. Address: [address] [place] [id number], Premium Auditor: Bogdan Dugan MD CLIA No.: [id number] Resident Services Manager POC Test Results from [facility] Rapid COVID antigen (11:16:21) COVID: + Attachments uploaded as part of this test result can be found under Documents section. Rapid influenza antigen (11:16:22) Flu: - Attachments uploaded as part of this test result can be found under Documents section. ................... ................... ................... ................... ................... ................... ................... ........ Resident Services Manager Note From Riley Longo: Dispatched to above [...] Flu test preformed, both negative, results uploaded. [facility] contacted, spoke with Dr. Ojeda, advised of patient complaints and exam findings. [facility] orders 500mg Azithromycin given PO now, will prescribe ABX therapy of sinusitis, recommends follow up with PCP for ongoing symptoms. Patient given 500mg Azithromycin PO, advised of prescription, advised of [facility] recommendations. Patient has no additional questions or concerns at this time. ME8 clear. [facility]. ................... ................... ................... ................... ................... ................... ................... ........ [facility] Consulted: Marixa Ojeda ................... ................... ................... ................... ................... ................... ................... ........ Disposition: Ruthann Marixa Ojeda MD [address] [facility],[address], [place], [address], [employer] 08/14/2024 14:49:37 01/22/2025 text/html ROS as noted in the HPI [facility] Nurse Triage Notes (Florinda Jenkins): Reason For Request: pt has sinus infection that isnt clearing after antibiotics Patient Reports: Sinus infection ; Cough, fever greater than 2 days ; History of asthma, increased use of inhaler; COPD; Sputum increase ; Cough Denies: Sudden onset of dental pain, unable to manage own secretions Nosebleed lasting longer than one hour; unable to stop bleeding Throat swelling/difficult swallowing Dental pain and fever, able to maintain secretions Increased work of breathing/labored with or without fever Unable to speak in full sentences without distress Discoloration of skin -cyanosis Needs to sleep sitting up, can t catch breath Shortness of breath in setting of confusion Lower extremity swelling COVID Exposure Shortness of breath with exertion Pain with inspiration Chief Complaints: Common Cold PMH: COPD/Asthma, Hypertension, Diabetes Mellitus Type 2, Asthma PMH Reviewed at 01/22/2025 16:35 Allergies Reviewed at 01/22/2025:35 Comments: 79 y.o female complains of Common Cold Patient is self referring Patient has had symptoms for 15 days was seen in walk in center and prescribed abx- finished course the day before yesterday- She was on doxycylcine. patient states she's getting a fever, denies any chills or body aches denies any headaches, lightheadedness, or dizziness Patient complains of productive cough with yellow mucous denies any chest pain when breathing or coughing. able to speak in full sentences. endorses a lot nasal congestion and increased inhaler use Patient denies any chronic kidney issues and is not on any blood thinners. I provided information on the mobile health provider response time and advised the patient and/or caregiver to monitor reported signs and symptoms. I discussed the warning signs of when to seek emergency care. Resident Services Manager Organization Information for Richard Gandhi Business Legal Name: [employer]. Address: [address] [place] [id number], Premium Auditor: Bogdan Dugan MD [place] No.: [id number] Resident Services Manager POC Test Results from [facility] Rapid strep test (17:45:09) Strep: + Rapid influenza antigen (17:45:11) Flu: - Rapid COVID antigen (17:45:16) COVID: - ................... ................... ................... ................... ................... ................... ................... ........ Resident Services Manager Note From Richard Gandhi: Dispatched to the above address for a 79 y/f with a cc of cough. Proper ppe was worn throughout the call. Upon arrival: Pt AOx4 in a fowlers position in the living sofa. Pt talking in full sentences greeted [facility] and gave a verbal report. Pt stated that about 15 days ago she was seen at her PCP for flu like symptoms (cough/runny nose/coughing up yellow phlegm). Pt stated that she was given doxycycline and was sent home. Pt stated that about 3-4 days ago she finished her antibiotics, and still has the same cough and runny nose. Pt noted that the cough gets significantly worse at night and that is when she has a significant amount of yellow phlegm come up with the cough. Pt stated that she has been doing home remedies with no help. Pt noted that she does take Arnuity Ellipta for her asthma 2x a day with no help. Pt also noted that she has been taking tylenol as need do to the low grade fever she recently started to have. AOx4 - Airway: Patent - Breathing: equal chest rise and fall - LS: slightly diminished in all areas with no rhonchi/crackles - Skin: pink, warm, dry - Pupils: PERRL - CMSx4 - Lower extremity no edema. Head to toe body assessment: (-) DCAPBTLS. Pt denied to SOB/headache/nausea /vomiting/difficult y urinating/constipat ion/diarrhea/blood in urine. Pt did note that she sometimes does have sore throat but not right now. (-) Covid/Flu A/Flu B/Strep [facility]: Gave orders to administer duo neb/40 mg of prednisone/500 mg Azithromycin (successfully given and pt noted that she felt better after Duo Neb). [facility] wrote a prescription to pt pharmacy for rest of antibiotics/prednis one/nasal prescription/albute rol. Pt stated that she will pickup medications in the morning. [facility] notified that pt needs to go to ER if Fever/ temp does not get better in 48 hours to get an X ray. Red flags were given to the pt. Pt MI cleared. All times approximate. [facility] Lab Orders: rapid SARS CoV 2 Ag, QL IA, respiratory specimen: Performed rapid strep group A, throat: Performed [facility] Medication Orders: ipratropium 0.5 mg-albuterol 3 mg (2.5 mg base)/3 mL nebulization soln: Administered prednisone 20 mg tablet: Administered azithromycin 250 mg tablet: Administered ................... ................... ................... ................... ................... ................... ................... ........ [facility] Consulted: Subha Nicolas ................... ................... ................... ................... ................... ................... ................... ........ Disposition: Ruthann NICOLAS MD [address] [place] [address],[address], [place], [id number], GIORGIO RENEE FULTON 01/22/2025 21:46:04 OBGyn Episode No OBEpisode recorded.
== END 2025-05-18 10:56 | disposition home or self-care (01) ==
LOC: HO.MRI 10:55
PROVIDERS: PCP Internal Medicine; Visit Provider Internal Medicine
DX: R92.8 Other abnormal and inconclusive findings on diagnostic imaging of breast (principal); N64.4 Mastodynia; N63.25 Unspecified lump in the left breast, overlapping quadrants
CPT/HCPCS: 77049; A9585